=== PATIENT | female | born 1975 | race Caucasian/White ===

== ENCOUNTER 2019-11-30 00:35 | Day surgery (SDC) | payer OTHER, SELFPAY ==
[2019-11-15 16:02] VITALS: BMI 55.5
[2019-11-30] VITALS (12 sets, daily range): BP systolic 93–142; BP diastolic 57–90; PULSE 53–75; RESP 12–20; TEMP 36–36.2; O2SAT 92–100
[2019-11-30] MEDS: LACTATED RINGERS 1,000 ML 30 ML IV CONT ×2 (06:46→09:48)
--- NOTE | 2019-11-30 07:06 | WPDANESEPPF ---
Anes - Initial Pre Proc Eval Procedure: Operation Date: 11/30/19 07:30 Proposed Procedures p Diagnostic Laparoscopy - Kiko Peña MD Date/Time: 11/30/19 07:06 Surgeon: Kiko Peña MD Pre Op Diagnosis: Pelvic Pain Patient Data Age: 44 Gender: F Height: 4 ft 10 in Weight: 75.8 kg Last Vital Signs Temp 96.8 F L 11/30/19 06:50 Pulse 75 11/30/19 06:50 BP 142/90 H 11/30/19 06:50 Pulse Ox 98 11/30/19 06:50 Allergies Allergy/AdvReac Type Severity Reaction Status Date / Time No Known Allergies Allergy Verified 11/30/19 06:49 Home Medications Medication Instructions Recorded Confirmed Type cyclobenzaprine 10 mg PRN PRN 11/15/19 11/30/19 History Patient hx anesthesia problems: none Family hx anesthesia problems: none [facility] Past Medical History Medical History (Updated 08/03/19 @ 08:33 by Vadim Arguello DO) Psoriasis Surgical History Surgical History (Updated 08/03/19 @ 08:33 by Vadim Arguello DO) History of Anes - Eval Final PreProcedure Day of Procedure 11/30/19 07:06 Patient weight: obese Heart: regular rate and rhythm Lungs: clear to auscultation Airway: Mallampati scale class III Neurological: alert and oriented Last oral intake: >/= 8 hours ASA classification: II Emergent: no Anesthetic plan: proceed Anesthesia type and monitoring: general ETT and standard monitoring Informed Consent: The patient's anesthetic plan and its attendant risks and benefits were discussed with the patient/family/POA. Questions were solicited and answers provided to the satisfaction of the patient/family/POA.
--- NOTE | 2019-11-30 07:25 | WPDHPUPDATE1 ---
History and Physical Update Update Date/Time: 11/30/19 07:25 History and Physical has been reviewed, including an updated exam of the patient. There are NO changes in the patient's condition. Risks, benefits, and alternatives have been discussed and questions answered. Patient agrees to proceed with procedure.
--- NOTE | 2019-11-30 09:02 | SUR.OPER ---
APPROXIMATELY 300CC OF NS INSTILLED IN BLADDER 900 TO CHECK BLADDER PER DR. ALVARADO'S ORDER WITH DELCID CATH INSERTED BY EDWAR CHAMBERLAIN RN. BLADDER DRAINED AND NO FURTHER ORDERS RECEIVED
--- NOTE | 2019-11-30 09:36 | SUR.OPER ---
EBL:10CC
--- NOTE | 2019-11-30 10:08 | P.OP_ITS ---
Procedure Note - Detailed Date of procedure: 11/30/19 Pre-op diagnosis: Pelvic Pain Ovarian cyst Post-op diagnosis: same (Pelvic adhesions) Procedure performed: Laparoscopic adhesiolysis 985 minutes of laparoscopic adhesiolysis was performed), laparoscopic ovarian cystectomy, diagnostic laparoscopy Description of procedure: The patient was taken the operating room. She was prepped and draped in the dorsal lithotomy position after induction of general anesthesia. A 5 mm left upper quadrant incision was made in the abdominal skin with a scalpel. A 5 mm trocar was inserted the intra-abdominal cavity under direct visualization of the scope. A 5 mm left lower quadrant incision was made with the scalp on the abdominal skin and a 5 mm trocar was inserted the intra- abdominal cavity under direct visualization of the scope. A 5 mm infraumbilical incision was made with scalpel and a 5 mm trocar was inserted into the intra- abdominal cavity under direct visualization of the scope. Adhesiolysis was performed between the uterus and the anterior abdominal wall. Omentum was adhered to the anterior abdominal wall. Using sharp and blunt dissection the omentum and uterus was from the anterior abdominal wall. Bladder was identified. Dissected off the lower uterine segment. The bladder was filled with saline and was found to be intact. It helped identify the margins of the bladder. Help with the dissection of the anterior abdominal wall and the lower uterine segment. Left ovarian cystectomies performed sharp and blunt dissection using cautery. The fallopian tube cysts were also removed with the cautery. Received was placed on the uterus. The procedure was terminated. The pelvis was irrigated with copious amounts of normal saline. The pneumoperitoneum was reduced. The trocars were removed. The patient was taken recovery room stable condition. Sponge lap and needle counts were correct x2. Anesthesia: GETA Surgeon: Kiko Peña MD Estimated blood loss (mL): 90 Drains: No Packing: No Pathology: yes Complications: No immediate complications Condition: stable Disposition: PACU Findings: Dense adhesions between the uterus to the anterior abdominal wall, left ovarian cyst, left fallopian tube cyst, normal appearing right ovary, normal-appearing right tube.
[2019-11-30] MEDS: ONDANSETRON HCL ODT 4 MG TABLET PO (12:32)
== END 2019-11-30 12:43 | disposition home or self-care (01) ==
PROVIDERS: Visit Provider Obstetrics & Gynecology
PROC: (CPT 49320; principal; 2019-11-30 07:30)
DX: N73.6 Female pelvic peritoneal adhesions (postinfective) (principal); N83.02 Follicular cyst of left ovary; N83.8 Other noninflammatory disorders of ovary, fallopian tube and broad ligament; R10.2 Pelvic and perineal pain; L40.9 Psoriasis, unspecified; E66.9 Obesity, unspecified; Z68.34 Body mass index [BMI] 34.0-34.9, adult
CPT/HCPCS: 58662; 88305; A9270; J0131; J1100; J1170; J2250; J2370; J2405; J2704; J2710; J3010; J7030; J7120

== ENCOUNTER 2020-01-31 20:09 | Emergency (ER) | payer OTHER, SELFPAY ==
--- NOTE | ~2020-01-31 | XR_ITS ---
EXAMINATION: XR chest 1V portable EXAM DATE: 01/31/2020 21:34 INDICATION: Wheezing, cough. TECHNIQUE: Portable AP frontal chest x-ray was obtained. Comparison is made to prior examination from 12/18/2009. FINDINGS: The lungs are clear. There are no pleural effusions. The cardiomediastinal silhouette is within normal limits. There is no pneumothorax suspected. The bones and soft tissues are unremarkab le. IMPRESSION: Unremarkable chest x-ray exam. Reviewed, dictated and finalized at location A.
[2020-01-31 20:25] VITALS: BP 142/86; PULSE 73; RESP 15; TEMP 36.7; O2SAT 99
--- NOTE | 2020-01-31 20:48 | ED.SOB ---
HPI - SOB/Dyspnea General Chief Complaint: Shortness of Breath/Dyspnea Stated Complaint: WHEEZING Time Seen by Provider: 01/31/20 20:35 Source: patient Mode of arrival: ambulatory Limitations: no limitations History of Present Illness HPI Narrative: This patient is a 45 year old female former smoker who presents for evaluation of cough and wheezing. Patient states over the past couple of weeks she has been dealing with sinus symptoms. She has been taking claritin and benadryl, but over the past 3 days she has had progressive worsening cough and wheezing. She denies diagnosis of asthma but reports diagnosis of bronchitis in the past. She denies associated fever, chills, nausea, vomiting, sore throat, diarrhea, or loss of taste of smell. MD elicited complaint: cough Onset (ago): day(s) (3) Associated symptoms: cough and wheezing Related Data Home Medications Medication Instructions Recorded Confirmed diphenhydramine HCl [Benadryl 25 mg PO Q6H PRN 01/31/20 Allergy] nnjtvqziwx-AM-AU-acetaminophen ml PO 01/31/20 [Vicks NyQuil Severe Cold-Flu] loratadine-pseudoephedrine 1 tablet PO Q12H 01/31/20 [Claritin-D 12 Hour] Allergies Allergy/AdvReac Type Severity Reaction Status Date / Time No Known Allergies Allergy Verified 11/30/19 06:49 Review of Systems Review of Systems: All systems reviewed & are unremarkable except as noted in HPI and below Constitutional: Constitutional: Denies chills, Denies fever(s) and Denies weakness ENT: Reports nasal congestion, Reports post nasal drip and Denies sore throat Cardiovascular: Cardiovascular: Denies chest pain Respiratory: Respiratory: Reports cough, Reports dyspnea and Reports wheezing Gastrointestinal: Gastrointestinal: Denies abdominal pain, Denies diarrhea, Denies nausea and Denies vomiting Neurologic: Denies headache(s) PMFSH Past Medical History Medical History (Updated 02/01/20 @ 00:00 by Mary Kelly) Psoriasis Surgical History Surgical History (Updated 08/03/19 @ 08:33 by Vadim Arguello DO) History of Social History Social History (Updated 01/31/20 @ 20:49 by Jayla Abel MD) Smoking status: Former smoker Exam Narrative: Exam Narrative: GENERAL: Well-appearing, well-nourished, and in no acute distress. HEAD: Normocephalic, atraumatic EYES: PERRLA and EOMI, conjunctiva clear without discharge THROAT:Mucous membranes moist, NECK: Supple, without lymphadenopathy or mass RESPIRATORY: No respiratory distress, Airway patent, Respirations non-labored, Expiratory wheezing diffuse, able to speak in complete sentences HEART: Regular rate and rhythm. No murmur heard. Normal peripheral pulses. ABDOMEN: Soft, nontender, nondistended, normal active bowel sounds. No masses. No rebound or guarding, No organomegaly. EXTREMITIES: No edema, normal strength with full range of motion. SKIN: Warm, dry, normal color without rash NEURO: Alert and oriented x3. CN 2-12 grossly intact. No focal deficits. PSYCH: Normal mood and affect. Course Reevaluation(s) Reevaluation #1: Patient states she feels better. She continues to have some wheezing but she is in no acute distress. I discussed with patient plan to discharge with albuterol and steroids Date: 01/31/20 Time: 22:04 Vital Signs Vital signs: Vital Signs Temperature 98.0 F 01/31/20 20:25 Pulse Rate 73 01/31/20 20:25 Respiratory Rate 15 01/31/20 20:25 Blood Pressure 142/86 H 01/31/20 20:25 Pulse Oximetry 99 01/31/20 20:25 Temperature 98.0 F 01/31/20 20:25 Pulse Rate 75 01/31/20 22:20 Respiratory Rate 17 01/31/20 22:20 Blood Pressure 172/94 H 01/31/20 22:20 Pulse Oximetry 100 01/31/20 22:20 MDM - SOB/Dyspnea Imaging Data Radiologist's impression: ITS Impressions Chest X-Ray 01/31/20 21:36 IMPRESSION: Unremarkable chest x-ray exam. Discharge Plan Discharge Clinical Impression: Acute br
[2020-01-31] MEDS: ALBUTEROL SULFATE (*SP) AEROSOL 1 PUFF 2 PUFF INHALATION (21:00)
[2020-01-31] MEDS: predniSONE 20 MG TABLET 60 MG PO (21:04)
[2020-01-31 21:25] VITALS: BP 157/87; PULSE 72; RESP 12; O2SAT 99
[2020-01-31 22:20] VITALS: BP 172/94; PULSE 75; RESP 17; O2SAT 100
== END 2020-01-31 22:20 | disposition home or self-care (01) ==
PROVIDERS: Emergency Provider General Practice
DX: J20.9 Acute bronchitis, unspecified (principal); Z87.891 Personal history of nicotine dependence
CPT/HCPCS: 71045; 99283; A9270; J7512

== ENCOUNTER 2020-03-29 16:28 | Outpatient (CLI) | payer OTHER, SELFPAY | END 2020-03-29 16:29 | disposition home or self-care (01) | PROVIDERS: Visit Provider Obstetrics & Gynecology | DX: N93.9 Abnormal uterine and vaginal bleeding, unspecified (principal); Z01.812 Encounter for preprocedural laboratory examination | CPT/HCPCS: 36415; 86850; 86900; 86901 ==

== ENCOUNTER 2020-03-30 00:13 | Outpatient (CLI) | payer OTHER, SELFPAY ==
[2020-03-30 18:05] LABS: SARS-CoV-2 RNA PCR Negative
== END 2020-03-30 00:14 | disposition home or self-care (01) ==
LOC: ANHCOVIDDT 00:14
PROVIDERS: Visit Provider Obstetrics & Gynecology
DX: Z01.818 Encounter for other preprocedural examination (principal); Z11.59 Encounter for screening for other viral diseases
CPT/HCPCS: 87635; C9803; U0003

== ENCOUNTER 2020-04-02 10:03 | Inpatient (IN) | payer OTHER, SELFPAY ==
[2020-03-29 09:56] VITALS: BMI 57.2
[2020-04-02] VITALS (16 sets, daily range): BP systolic 89–130; BP diastolic 60–76; PULSE 58–88; RESP 10–18; TEMP 36.6–37.3; O2SAT 95–100
--- NOTE | 2020-04-02 06:59 | WPDANESEPPF ---
Anes - Initial Pre Proc Eval Procedure: Operation Date: 04/02/20 07:30 Proposed Procedures p Total Laparoscopic Assisted Hysterectomy, Bilateral Salpingo-Oophorectomy - Kiko Peña MD Date/Time: 04/02/20 06:59 Surgeon: Kiko Peña MD Pre Op Diagnosis: Abnormal Uterine Bleeding Patient Data Age: 45 Gender: F Height: 4 ft 10 in Weight: 124.28 kg Allergies Allergy/AdvReac Type Severity Reaction Status Date / Time No Known Allergies Allergy Verified 03/29/20 09:56 Home Medications Medication Instructions Recorded Confirmed Type albuterol sulfate 2 puff INHALATION QID PRN #8 gm 01/31/20 03/29/20 Rx diphenhydramine HCl [Benadryl 25 mg PO Q6H PRN 01/31/20 03/29/20 History Allergy] loratadine-pseudoephedrine 1 tablet PO Q12H PRN 01/31/20 03/29/20 History [Claritin-D 12 Hour] norethindrone-e.estradiol-iron 1 tablet PO DAILY 03/29/20 03/29/20 History [Microgestin FE 10/10 (28)] Patient hx anesthesia problems: post op nausea/vomiting Family hx anesthesia problems: none PMFSH Past Medical History Medical History (Updated 04/02/20 @ 06:58 by Moy Rodas MD) Bronchitis Psoriasis Surgical History Surgical History (Updated 08/03/19 @ 08:33 by Vadim Arguello DO) History of Social History Social History (Updated 01/31/20 @ 20:49 by Jayla Abel MD) Smoking packs per day: 0.5 Smoking cigarettes per day: 10.0 Years smoked: 5 Smoking pack-years: 2.50 Smoking status: Former smoker Additional smoking assessment comments: QUIT 2017 Alcohol intake: never Spiritual care concerns: No Anes - Eval Final PreProcedure Day of Procedure 04/02/20 06:59 Patient weight: overweight Heart: regular rate and rhythm Lungs: clear to auscultation Airway: Mallampati scale class II Neurological: alert and oriented Last oral intake: >/= 8 hours ASA classification: II Emergent: no Anesthetic plan: proceed Anesthesia type and monitoring: general ETT and standard monitoring Informed Consent: The patient's anesthetic plan and its attendant risks and benefits were discussed with the patient/family/POA. Questions were solicited and answers provided to the satisfaction of the patient/family/POA.
[2020-04-02] MEDS: SCOPOLAMINE 1.5 MG PATCH TRANSDERM (07:10)
[2020-04-02] MEDS: LACTATED RINGERS 1,000 ML 30 ML IV CONT ×2 (07:10→10:06)
[2020-04-02] MEDS: ONDANSETRON INJ 4 MG/2 ML VIAL IV PUSH (07:10)
[2020-04-02] MEDS: KETOROLAC 15 MG/ML VIAL (*BKC) IV PUSH (07:10)
--- NOTE | 2020-04-02 07:20 | WPDHPUPDATE1 ---
History and Physical Update Update Date/Time: 04/02/20 07:20 History and Physical has been reviewed, including an updated exam of the patient. There are NO changes in the patient's condition. Risks, benefits, and alternatives have been discussed and questions answered. Patient agrees to proceed with procedure.
[2020-04-02] MEDS: ACETAMINOPHEN 500 MG TABLET 1000 MG PO (07:33)
[2020-04-02] MEDS: ceFAZolin 2 GM/D5W 50 ML 2 GM/50 ML BAG IVPB (07:36)
--- NOTE | 2020-04-02 10:05 | P.OP_ITS ---
Procedure Note - Detailed Date of procedure: 04/02/20 Pre-op diagnosis: Abnormal Uterine Bleeding Post-op diagnosis: same Procedure performed: Total laparoscopic hysterectomy bilateral salpingo- oophorectomy Description of procedure: The patient was taken to the operating room. She was prepped and draped in the dorsal lithotomy position. A speculum was placed in the vagina. The cervix was grasped with a tenaculum. Stay sutures were placed at 3 and 9:00 a.m. of 0 Vicryl. The stay sutures were brought through the Cheri up. The RUDI manipulator was placed in the vagina with a fixed Cheri cup. The cup was then pushed up around the cervix. The sutures were tied to the handle of the RUDI manipulator. A 5 mm incision was made on the abdominal skin of the left upper quadrant using a scalpel. A 5 mm trocar was inserted into the intra-abdominal cavity under direct visualization the scope. Pneumoperitoneum was achieved. An 11 mm incision was made in the left lower quadrant of the abdomen with a scalpel. A 11 mm trocar was inserted into the intra-abdominal cavity under direct visualization the scope. A 5 mm periumbilical incision was made. A 5 mm scope was placed into the intra-abdominal cavity under direct visualization of the scope. The ureters were identified. The ureters were observed to be away from the infundibulopelvic ligaments. These infundibulopelvic ligaments were isolated, cauterized, and transected with LigaSure cautery. This was done in a bilateral fashion. The para ovarian tissue along the pelvic sidewall was cauterized and transected in a bilateral fashion using the ligature cautery. The round ligaments were cauterized and transected bilaterally with LigaSure cautery. The broad ligaments were cauterized and transected along the lateral aspects of the uterus down the level of the uterine arteries. A bladder flap was created using sharp and blunt dissection. The ureters were dissected out bilaterally down to the level of the uterine arteries. The could be visualized from the pelvic brim down the uterine arteries. Staying very close to the cervix the parametrium was cauterized transected in a stepwise fashion down to the level of the Cheri cup. The Bladder flap was moved distally over the Cheri cup using sharp and blunt dissection. The cup was visualized and a complete 360 degree papillary around the cervix. An incision was made with unipolar cautery down under the Cheri cup creating a colpotomy incision all the way around the cervix. The uterus tubes and ovaries were taken out through the vagina. A pneumo occluder was placed in the vagina. The vagina was closed with 0 V lock suture in a running fashion. The ureters were identified again and found to be intact elevated and the uterine arteries. The pelvis was irrigated with a copious amount of antibiotic irrigation. The pneumoperitoneum was reduced. The trocars were removed. The skin was closed subcuticular 4 Monocryl covered with Dermabond. The pneumo occluder was removed from the vagina. The vagina was irrigated with Betadine. The patient tolerated the procedure well. She was taken to the recovery room in stable condition. Sponge lap and needle counts were correct x2. Anesthesia: GETA Surgeon: Kiko Peña MD Estimated blood loss (mL): 150 Drains: No Packing: No Pathology: yes Complications: No immediate complications Condition: stable Disposition: PACU Findings: Grossly normal-appearing uterus tubes and ovaries.
--- NOTE | 2020-04-02 10:51 | SUR.PHASEI ---
1045; PT RESTING QUIETLY. RESP EVEN UNLABORED. DOZING IN INTERVALS. SAO2 DROPS BRIEFLY TO 87%. O2 2L NC APPLIED.
--- NOTE | 2020-04-02 11:10 | SUR.PHASEI ---
1 BAG OF BELONGINGS TAKEN TO FLOOR WITH PT
--- NOTE | 2020-04-02 11:22 | PC.NURSE ---
This patient, Elizabeth Reich, was received from PACU per bed to room 289. Patient/family oriented to unit policies and routines
[2020-04-02] MEDS: KETOROLAC 30 MG/ML VIAL (*BKC) IV PUSH (14:49)
[2020-04-02] MEDS: SIMETHICONE 80 MG TAB.CHEW (19:49)
[2020-04-02] MEDS: DOCUSATE SODIUM 100 MG CAPSULE (19:49)
[2020-04-02] MEDS: SIMETHICONE 80 MG TAB.CHEW PO (23:15)
[2020-04-02] MEDS: IBUPROFEN 600 MG TABLET PO (23:15)
[2020-04-03 05:00] VITALS: BP 117/61; PULSE 62; RESP 18; TEMP 36.7; O2SAT 98
[2020-04-03] MEDS: SIMETHICONE 80 MG TAB.CHEW PO ×2 (05:01→09:35)
[2020-04-03] MEDS: IBUPROFEN 600 MG TABLET PO (05:02)
--- NOTE | 2020-04-03 07:07 | WPDANLDPN2 ---
Anes-Prog Note L&D Date/Time: 04/03/20 07:07 Neuro status: Neuro function grossly intact. Vital Signs: Last Vital Signs Temp 36.7 C 04/03/20 05:00 Pulse 62 04/03/20 05:00 Resp 18 04/03/20 05:00 BP 117/61 04/03/20 05:00 Pulse Ox 98 04/03/20 05:00 I/O: Intake & Output 04/02/20 04/02/20 04/03/20 15:59 23:59 07:59 Intake Total 147 299 8967 Output Total 165 325 750 Balance 185 75 250 Patient feedback: Patient satisfied with anesthetic care.
--- NOTE | 2020-04-03 07:07 | WPDANESPN ---
Anes - Prog Note Post-Op Date/Time: 04/03/20 07:07 Cardiovascular status: normal Respiratory status: normal Airway patency: baseline Mental status: baseline Post-Op hydration status: normal Vital Signs: Last Vital Signs Temp 36.7 C 04/03/20 05:00 Pulse 62 04/03/20 05:00 Resp 18 04/03/20 05:00 BP 117/61 04/03/20 05:00 Pulse Ox 98 04/03/20 05:00 I/O: Intake & Output 04/02/20 04/02/20 04/03/20 15:59 23:59 07:59 Intake Total 689 344 7682 Output Total 165 325 750 Balance 185 75 250 Post-procedural complaints: none Patient Feedback: Patient satisfied with anesthetic care.
--- NOTE | 2020-04-03 07:47 | PM.GYNPNOP ---
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 Post-Op Subjective Date/time seen: 04/03/20 07:47 Subjective: patient reports feeling better, patient has no complaints and pain is well controlled Exam Const: General: healthy appearing, comfortable and no acute distress Resp: Auscultation: clear to auscultation bilaterally, no rales, no rhonchi and no wheezes Cardio: Rate: regular rate Heart sounds: no click, no murmurs and no rubs GI: Inspection: non-distended Auscultation: normal bowel sounds Extrem: General: normal to inspection, no pedal edema and no calf tenderness 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 GRAIN DRYER - PN: Obj Data Vital Signs Vital Signs: Vital Signs - 24 hr 04/02/20 10:06 04/02/20 10:20 04/02/20 10:35 Temperature 97.8 F Pulse Rate 76 60 64 Respiratory Rate 10 L 12 16 Blood Pressure 89/76 L 113/63 117/61 Pulse Oximetry 100 100 95 04/02/20 10:50 04/02/20 11:05 04/02/20 11:23 Temperature 97.8 F Pulse Rate 58 L 65 67 Respiratory Rate 14 12 16 Blood Pressure 96/63 L 102/62 109/62 Pulse Oximetry 98 100 100 04/02/20 11:30 04/02/20 11:45 04/02/20 12:00 Temperature Pulse Rate 70 67 70 Respiratory Rate 16 16 Blood Pressure 97/61 L 98/60 L 107/64 Pulse Oximetry 100 100 100 04/02/20 12:30 04/02/20 13:00 04/02/20 14:00 Temperature 98.6 F Pulse Rate 78 87 67 Respiratory Rate 16 16 16 Blood Pressure 111/65 124/68 114/71 Pulse Oximetry 100 100 100 04/02/20 16:45 04/02/20 19:30 04/02/20 23:15 Temperature 99.2 F 99.1 F 98.5 F Pulse Rate 88 84 74 Respiratory Rate 18 14 18 Blood Pressure 130/70 107/61 121/63 Pulse Oximetry 98 99 04/03/20 05:00 Temperature 98.1 F Pulse Rate 62 Respiratory Rate 18 Blood Pressure 117/61 Pulse Oximetry 98 Intake/Output Intake/Output: Intake & Output 03/31/20 04/01/20 04/02/20 04/03/20 23:59 23:59 23:59 23:59 Intake Total 750 1000 Output Total 490 750 Balance 260 250 Meds/Results Medications: Active Medications Generic Name Dose Route Start Last Admin Trade Name Freq PRN Reason Stop Dose Admin Hydrocodone Bitart/Acetaminophen 1 tab 04/02/20 11:11 04/03/20 05:01 Spruce 5-325 Mg PO 1 tab Q3H PRN Administration Pain Rated 5 or Less Hydrocodone Bitart/Acetaminophen 1 tab 04/02/20 11:11 Spruce 10-325 Mg PO Q3H PRN Pain Rated 6 or Greater Albuterol 2 puff 04/02/20 11:11 Proventil Hfa INHALATION QID PRN shortness of breath or wheezing Diphenhydramine HCl 25 mg 04/02/20 11:11 Benadryl Cap PO Q6H PRN Allergy Symptoms Docusate Sodium 100 mg 04/03/20 09:00 Colace Capsule PO Q12HR MADY Ibuprofen 600 mg 04/02/20 11:11 04/03/20 05:02 Motrin PO 600 mg Q6H PRN Administration Cramping Ketorolac Tromethamine 30 mg 04/02/20 11:11 04/02/20 14:49 Toradol Inj IV PUSH 04/07/20 11:12 30 mg Q6H PRN Administration Pain Rated 4-6 Loratadine/Pseudoephedrine Sulfate 1 tab 04/02/20 11:30 Claritin-D 24 Hour Tablet PO QAM PRN Allergic Symptoms Naloxone HCl 0.1 mg 04/02/20 11:11 Narcan IV PUSH Q2M PRN Respiratory rate less than 10 Ondansetron HCl 4 mg 04/02/20 10:19 Zofran Inj IV PUSH ONCE PRN Nausea Simethicone 80 mg 04/02/20 22:19 04/03/20 05:01 Mylicon PO 80 mg Q2H PRN Administration Gas Discomfort
[2020-04-03 08:25] VITALS: BP 106/57; PULSE 79; RESP 16; TEMP 36.5; O2SAT 100
[2020-04-03] MEDS: DOCUSATE SODIUM 100 MG CAPSULE PO (09:35)
--- NOTE | 2020-05-21 11:09 | P.DS_ITS ---
DS: Admitting Diagnosis Admitting Diagnosis Admitting Diagnosis: Abnormal Uterine Bleeding DS: Discharge Diagnosis Discharge Diagnosis (1) Abnormal uterine and vaginal bleeding, unspecified: Code(s): N93.9 - Abnormal uterine and vaginal bleeding, unspecified Status: Acute DS: Summary Hospital Course Reason for hospitalization: Abnormal uterine bleeding Hospital Course: this patient is a 45-year-old female presented to the hospital for total laparoscopic hysterectomy bilateral salpingo oophorectomy. This was performed for abnormal uterine bleeding. Her hospital course was unremarkable. She tolerated the surgery well. She was ambulating, tolerating p.o., and passing flatus at the appropriate time. She is afebrile and her pain was well controlled throughout her stay. She was discharged on postoperative day 1. Status at Discharge Functional status at discharge: independent ambulation Time Spent with Patient Time attestation: Total time spent providing and/or coordinating discharge services: DS: Data Data Completed and Pending Completed studies during hospitalization: Pending at discharge 04/02/20 09:21 Surgical [PTH] Routine Discharge Plan Discharge Discharging Clinician: Kiko Peña Patient Disposition: Home, Self-Care Activity: pelvic rest Diet: regular Discharge Instructions: Some Complications to Watch for: ? Excessive incisional or vaginal drainage (more than on pad an hour). Additional Instructions: ? Expect some vaginal spotting for 2-4 days. ? Nothing vaginally (i.e. douching, intercourse, tampons) until follow up visit. Remove the Scopolamine patch that was placed behind your ear in 72 hours or less. Wash your hands after touching. Patient Instructions: Laparoscopic Hysterectomy (DC) Stand Alone Forms: General Discharge Instructions Follow-up/Referrals: Kiko Peña MD [Physician] - Discharge Orders: Outpatient Surgery Discharge (Routine); Ordered 04/03/20 Ordered By: Kiko Peña Discharge Medications: New hydrocodone-acetaminophen 5-325 mg tablet 1 - 2 tablet PO Q4H PRN (Reason: pain) Qty: 25 RF: 0 estradiol 1 mg tablet 1 mg PO DAILY Qty: 30 RF: 12 Continued diphenhydramine HCl [Benadryl Allergy] 25 mg Tablet 25 mg PO Q6H PRN (Reason: Allergy Symptoms) RF: 0 Claritin-D 12 Hour 5-120 mg Tablet Extended Release 12 Hr 1 tablet PO Q12H PRN (Reason: Allergic Symptoms) RF: 0 albuterol sulfate 90 mcg/actuation HFA aerosol inhaler 2 puff INHALATION QID PRN (Reason: shortness of breath or wheezing) Qty: 8 RF: 0 norethindrone-e.estradiol-iron [Microgestin FE 10/10 (28)] 1 mg-20 mcg (21)/75 mg (7) tablet 1 tablet PO DAILY RF: 0 Date of admission: 04/02/20 10:03 Primary Care Provider: PHYSICIAN,[employer]IATE Admitting Provider: Kiko Peña Discharge Date/Time: 04/03/20 11:01 Attending physician on admission: Kiko Peña
== END 2020-04-03 11:01 | disposition home or self-care (01) | DRG 743 ==
LOC: ANHOB2 15:21 → ANHSURGERY 04-05 15:38 → ANHOB2 04-05 15:38
PROVIDERS: Admitting Provider Obstetrics & Gynecology; Visit Provider Obstetrics & Gynecology
PROC: 0UT9FZZ Resection of Uterus, Via Natural or Artificial Opening With Percutaneous Endoscopic Assistance (ICD-10-PCS; principal; 2020-04-02 07:30)
DX: N93.9 Abnormal uterine and vaginal bleeding, unspecified (principal); N92.0 Excessive and frequent menstruation with regular cycle; N94.6 Dysmenorrhea, unspecified; L40.9 Psoriasis, unspecified; Z87.891 Personal history of nicotine dependence
CPT/HCPCS: 87635; 88307; 99199; A9270; J0330; J0690; J1100; J1170; J1885; J2250; J2405; J2704; J2710; J3010; J7030; J7120; U0003

== ENCOUNTER 2021-01-22 00:50 | Emergency (ER) | payer OTHER, SELFPAY ==
[2021-01-22 00:52] VITALS: BP 178/85; PULSE 71; RESP 16; TEMP 36.3; O2SAT 98
--- NOTE | 2021-01-22 02:11 | ED.GENADULT ---
HPI - General Adult General Chief complaint: Skin/Abscess/Foreign Body Stated complaint: redness to legs Time Seen by Provider: 01/22/21 01:57 Source: patient and RN notes reviewed Mode of arrival: ambulatory Limitations: no limitations History of Present Illness HPI narrative: Patient is 46 years old white female presented to the ED because of stinging, burning, and itching of the skin of the anterior medial side of the thighs, mainly left 1 started 1 week ago. Patient denies any fever, chills, nausea, vomiting, respiratory symptoms, chest pain, headache, back pain or similar symptoms. Patient had history of Sjogren syndrome and psoriatic arthritis. Related Data Home Medications Medication Instructions Recorded Confirmed Claritin-D 12 Hour 1 tablet PO Q12H PRN 01/31/20 03/29/20 diphenhydramine HCl [Benadryl 25 mg PO Q6H PRN 01/31/20 03/29/20 Allergy] norethindrone-e.estradiol-iron 1 tablet PO DAILY 03/29/20 03/29/20 [Microgestin FE 10/10 (28)] diclofenac sodium PO 01/22/21 methotrexate sodium 01/22/21 Allergies Allergy/AdvReac Type Severity Reaction Status Date / Time No Known Allergies Allergy Verified 01/22/21 01:37 Review of Systems Review of Systems: Narrative: CONSTITUTIONAL: Denies fever, chills, or sweats. EYES: Denies visual changes, redness, or discharge. ENT: Denies rhinorrhea, congestion, sore throat, or otalgia. CARDIOVASCULAR: Denies chest pain, palpitations, or edema. RESPIRATORY: Denies cough or dyspnea. GASTROINTESTINAL: Denies abdominal pain, nausea, vomiting, or diarrhea. GENITOURINARY: Denies dysuria or hematuria. SKIN: Denies rash or itching. MUSCULOSKELETAL: Denies back pain, joint pain, or myalgia. NEUROLOGIC: Denies headache, numbness, or weakness. PSYCHIATRIC: Denies anxiety or depression. [facility] Past Medical History Medical History Bronchitis Psoriasis Surgical History Surgical History History of Social History Social History Smoking packs per day: 0.5 Smoking cigarettes per day: 10.0 Years smoked: 5 Smoking pack-years: 2.50 Smoking status: Former smoker Additional smoking assessment comments: QUIT 2017 Alcohol intake: never Spiritual care concerns: No Exam Narrative: Exam Narrative: General appearance: Well-developed, well-nourished Skin: Normal color. Anterior medial side of the thigh bilaterally is slightly red, slightly tender to touch, no warmth, no discharge, no sign of insect bite. Head: Normocephalic, nontraumatic Eyes: Clear conjunctiva ENT: Oropharynx normal, ears normal, nose normal Neck: Supple, nontender Chest and respiratory: Airway patent, no respiratory distress, no accessory muscle use Heart: Regular rate/rhythm Abdomen: Soft, nontender, no organomegaly, quiet bowel sounds Vascular: Normal peripheral pulses, normal capillary refill. Musculoskeletal: Normal range of motion, nontender back Neurologic: Alert and oriented ?3, [employer] SPECIALIST is normal as tested, no gross motor deficit Course Course Emergency Course: Stable Vital Signs Vital signs: Vital Signs Temperature 36.3 C L 01/22/21 00:52 Pulse Rate 71 01/22/21 00:52 Respiratory Rate 16 01/22/21 00:52 Blood Pressure 178/85 H 01/22/21 00:52 Pulse Oximetry 98 01/22/21 00:52 Temperature 36.3 C L 01/22/21 00:52 Pulse Rate 71 01/22/21 00:52 Respiratory Rate 16 01/22/21 00:52 Blood Pressure 178/85 H 01/22/21 00:52 Pulse Oximetry 98 01/22/21 00:52 Medical Decision Making MDM Narrative Medical decision making ada
[2021-01-22] MEDS: LORATADINE 10 MG TABLET PO (02:20)
[2021-01-22] MEDS: predniSONE 20 MG TABLET 60 MG PO (02:20)
[2021-01-22] MEDS: EPINEPHrine HCL INJ 1 MG/ML AMPUL 0.3 MG IM (02:22)
[2021-01-22 03:16] VITALS: BP 152/77; PULSE 69; RESP 16; O2SAT 100
== END 2021-01-22 03:18 | disposition home or self-care (01) ==
PROVIDERS: Emergency Provider Emergency Medicine; PCP Nurse Practitioner Family
DX: L30.9 Dermatitis, unspecified (principal); Z87.891 Personal history of nicotine dependence
CPT/HCPCS: 96372; 99283; A9270; J0171; J7512

== ENCOUNTER 2021-01-27 12:24 | Emergency (ER) | payer OTHER, SELFPAY ==
[2021-01-27 12:35] VITALS: BP 129/88; PULSE 78; RESP 16; TEMP 36.7; O2SAT 100
--- NOTE | 2021-01-27 12:35 | ED.SKABFB ---
HPI - Skin/Abscess/Foreign Bdy General Chief complaint: Skin/Abscess/Foreign Body Stated complaint: rash History of Present Illness HPI narrative: The patient, is a history of psoriatic arthritis, presents with skin eruption. Patient states she is on methotrexate, and went to the ER for symmetric, skin eruption of her medial thighs. Patient originally had a sun exposure at the end of December, then she was treated with prednisone antihistamines for 2 days.But the symptoms have persisted and asymmetrically worsened. No fever, streaking, discharge, but she has definite burning itch, redness at the affected left thigh Related Data Home Medications Medication Instructions Recorded Confirmed diphenhydramine HCl [Benadryl 25 mg PO Q6H PRN 01/31/20 01/27/21 Allergy] diclofenac sodium 75 mg PO DAILY 01/22/21 01/27/21 methotrexate sodium 15 mg PO WEEKLY 01/22/21 01/27/21 folic acid 1 mg PO BID 01/27/21 01/27/21 Allergies Allergy/AdvReac Type Severity Reaction Status Date / Time No Known Allergies Allergy Verified 01/27/21 12:29 Review of Systems Review of Systems: Narrative: General/Constitutional: No weight loss,fever Eyes: N0: Redness,discharge Ears/Nose/Throat: No: Epistaxis,ear discharge Respiratory: Denies: Hemoptysis Gastrointestinal: No Vomiting, Bleeding-rectal Skin: No Lumps, REPORTS eruption Neurologic: No Focal Weakness,Sz Hematologic: Denies: Petechiae/Purpura Psychiatric: No: Suicida ideationl All Other Systems: Reviewed and Negative [facility] Past Medical History Medical History Bronchitis Psoriasis Surgical History Surgical History History of Social History Social History Smoking packs per day: 0.5 Smoking cigarettes per day: 10.0 Years smoked: 5 Smoking pack-years: 2.50 Smoking status: Former smoker Additional smoking assessment comments: QUIT 2017 Alcohol intake: never Spiritual care concerns: No Exam Narrative: Exam Narrative: General Appearance: Well appearing, Conjunctiva clear Ears: External ear normal Skin: Warm, Dry; definite inflamed follicles of the left distal thigh with surrounding early redness Mouth/Throat: Normal appearing, Normal lips, Supple Respiratory: Airway patent, No respiratory distress Musculoskeletal: Full ROM Neurological: A&O x3, , Normal affect Course Vital Signs Vital signs: Vital Signs Temperature 98.1 F 01/27/21 12:35 Pulse Rate 78 01/27/21 12:35 Respiratory Rate 16 01/27/21 12:35 Blood Pressure 129/88 01/27/21 12:35 Pulse Oximetry 100 01/27/21 12:35 Temperature 98.1 F 01/27/21 12:35 Pulse Rate 78 01/27/21 12:35 Respiratory Rate 16 01/27/21 12:35 Blood Pressure 129/88 01/27/21 12:35 Pulse Oximetry 100 01/27/21 12:35 Discharge Plan Discharge Clinical Impression: Cellulitis Qualifiers: Site of cellulitis: extremity Site of cellulitis of extremity: lower extremity Laterality: left Qualified Code(s): L03.116 - Cellulitis of left lower limb Patient Disposition: Home, Self-Care Condition: Stable Instructions: Antibiotic Form, Cellulitis (ED) Additional Instructions: Take clindamycin with food, probiotic; stop if diarrhea occurs Keep a photo log of area Return if worsens per handout Prescriptions: New clindamycin HCl 300 mg capsule 300 mg PO TID Qty: 21 RF: 0 No Action folic acid 1 mg tablet 1 mg PO BID RF: 0 diphenhydramine HCl [Benadryl Allergy] 25 mg Tablet 25 mg PO Q6H PRN (Reason: Allergy Symptoms) RF: 0 albuterol sulfate 90 mcg/actuation HFA aerosol inhaler 2 puff INHALATION QID PRN (Reason: shortness of breath or wheezing) Qty: 8 RF: 0 estradiol 1 mg tablet 1 mg PO DAILY Qty: 30 RF: 12 methotrexate sodium 2.5 mg tablet 15 mg PO WEEKLY RF: 0 diclofenac sodium 75
== END 2021-01-27 13:10 | disposition home or self-care (01) ==
PROVIDERS: Emergency Provider Emergency Medicine; PCP Nurse Practitioner Family
DX: L03.116 Cellulitis of left lower limb (principal); Z87.891 Personal history of nicotine dependence
CPT/HCPCS: 99213; G0463

== ENCOUNTER 2022-07-15 16:44 | Outpatient (CLI) | payer BC, SELFPAY ==
--- NOTE | ~2022-07-15 | XR_ITS ---
XR hip BI wo pelvis DATE: 07/15/2022 17:10 INDICATION: Bilateral hip pain TECHNIQUE: AP and lateral views of each hip. COMPARISON: None FINDINGS: No fracture or dislocation, avascular necrosis or bone destruction of the hips. Hip joint spaces are well preserved. The pubic symphysis and sacroiliac joints are normal. IMPRESSION: Negative Reviewed, dictated and finalized at location A. IMPRESSION: Negative
[2022-07-15 17:39] LABS: Hematocrit 39.5 % (37.0-47.0); Hemoglobin 13.5 g/dL (12.0-15.0); Mean Corpuscular HGB Conc 34.2 g/dl (32-36); Mean Corpuscular Hemoglobin 30.8 pg (26-34); Mean Platelet Volume 10.9 fl (7.4-10.4); Platelet Count Result 266 k/mm3 (150-375); Red Blood Count 4.39 M/mm3 (4.2-5.4); Red Cell Distribution Width 13.2 % (11.5-14.5); White Blood Count 12.4 K/mm3 (4.5-10.0)
[2022-07-15 17:52] LABS: Alanine Aminotransferase 31 U/L (6-35); Albumin Level 4.2 g/dL (3.5-5.1); Alkaline Phosphatase 107 U/L (38-126); Anion Gap 9 mmol/L (8-16); Aspartate Amino Transferase 25 U/L (14-36); Bilirubin,Total 0.4 mg/dL (0.2-1.3); Blood Urea Nitrogen 17 mg/dL (7-17); Calcium 8.2 mg/dL (8.4-10.2); Carbon Dioxide 26 mmol/L (22-30); Chloride 105 mmol/L (98-107); Cholesterol 198 mg/dL (0-200); Estimated Glomerular Filt Rate 59; Glucose 161 mg/dL (65-110); HDL Direct 52 mg/dL; Potassium 4.1 mmol/L (3.4-5.0); Sodium 140 mmol/L (137-145); Triglycerides 86 mg/dL (<150)
[2022-07-15 18:03] LABS: LDL Cholesterol Direct 111 mg/dL
[2022-07-15 18:04] LABS: Add Urine Microscopic? YES; Appearance Urine Cloudy (Clear); Bilirubin Urine Negative (Negative); Blood Urine 1+ (Negative); Color Urine Yellow (Yellow); Glucose Urine UA 2+ mg/dL (Negative); Ketones Urine Negative (Negative); Leukocyte Esterase Ur Negative LEU/UL (NEGATIVE); Mucus Urine Rare /lpf; Nitrate Urine Negative (Negative); Protein Urine Negative (Negative); RBC Urine 21-50 /hpf (0-2); Specific Grav Ur 1.026 (1.001-1.035); Squamous Epithelial Cell Urine Many /hpf (Few); Urobilinogen Urine Negative mg/dL (<2.0)
[2022-07-15 18:22] LABS: Thyroid Stimulating Hormone 0.772 uIU/mL (0.465-4.680)
[2022-07-15 21:54] LABS: Hemoglobin A1C 5.5 % (<5.7)
== END 2022-07-15 16:45 | disposition home or self-care (01) ==
LOC: ANHIMG 16:51
PROVIDERS: PCP Nurse Practitioner Family; Visit Provider Nurse Practitioner Family
DX: I10 Essential (primary) hypertension (principal); E66.9 Obesity, unspecified; M25.551 Pain in right hip; M25.552 Pain in left hip
CPT/HCPCS: 36415; 73521; 80053; 80061; 81001; 83036; 84443; 85027

== ENCOUNTER 2022-07-16 18:50 | Emergency (ER) | payer BC, SELFPAY ==
--- NOTE | ~2022-07-16 | XR_ITS ---
XR hand LT min 3V DATE: 07/16/2022 19:30 INDICATION: Attacked by a rooster. TECHNIQUE: 3 views COMPARISON: None FINDINGS: No fracture or dislocation, periosteal reaction or bone destruction. No radiopaque foreign body. IMPRESSION: Negative Reviewed, dictated and finalized at location A. IMPRESSION: Negative
[2022-07-16 18:54] VITALS: BP 185/78; PULSE 91; RESP 20; TEMP 36.8; O2SAT 97
--- NOTE | 2022-07-16 20:22 | ED.ANIMALBIT ---
HPI - Animal Bite General Chief Complaint: Animal Bite <RAUL Gonzalez Last Filed: 07/16/22 20:34> Stated Complaint: laceration to left hand <RAUL Gonzalez Last Filed: 07/16/22 20:34> Time Seen by Provider: 07/16/22 19:49 <RAUL Gonzalez Last Filed: 07/16/22 20:34> Source: patient <RAUL Gonzalez Last Filed: 07/16/22 20:34> Mode of arrival: ambulatory <RAUL Gonzalez Last Filed: 07/16/22 20:34> Limitations: no limitations <RAUL Gonzalez Last Filed: 07/16/22 20:34> History of Present Illness HPI narrative: This is a 47-year-old female that presents emergency department after an injury today for a laceration to her hand. Reports she was attacked by her rooster. Reports a possible foreign body in the area. Denies decreased range of motion or numbness. <RAUL Gonzalez Last Filed: 07/16/22 20:34> Related Data Home Medications: Home Medications Medication Instructions Recorded Confirmed diphenhydramine HCl 25 mg tablet 25 mg PO Q6H PRN Allergy Symptoms 01/31/20 01/27/21 (Benadryl Allergy) diclofenac sodium 75 mg 75 mg PO DAILY 01/22/21 01/27/21 tablet,delayed release methotrexate sodium 2.5 mg tablet 15 mg PO WEEKLY 01/22/21 01/27/21 folic acid 1 mg tablet 1 mg PO BID 01/27/21 01/27/21 <RAUL Gonzalez Last Filed: 07/16/22 20:34> Allergies/Adverse Reactions: Allergies Allergy/AdvReac Type Severity Reaction Status Date / Time No Known Allergies Allergy Verified 07/16/22 19:51 <RAUL Gonzalez Last Filed: 07/16/22 20:34> Review of Systems Review of Systems: CONSTITUTIONAL: Denies fever SKIN: Reports laceration <RAUL Gonzalez Last Filed: 07/16/22 20:34> All systems reviewed & are unremarkable except as noted in HPI and below <Brianna Ly PA-C - Last Filed: 07/16/22 20:34> PMFSH Past Medical History Medical History: Medical History Bronchitis Psoriasis <Brianna Ly PA-C - Last Filed: 07/16/22 20:34> Surgical History Surgical History: Surgical History History of <Brianna Ly PA-C - Last Filed: 07/16/22 20:34> Social History Social History: Social History Smoking packs per day: 0.5 Smoking cigarettes per day: 10.0 Years smoked: 5 Smoking pack-years: 2.50 Smoking status: Former smoker Additional smoking assessment comments: QUIT 2017 Alcohol intake: never Spiritual care concerns: No <Brianna Ly PA-C - Last Filed: 07/16/22 20:34> Exam Narrative: GENERAL: Well-appearing, well-nourished, and in no acute distress. HEAD: Normocephalic, atraumatic. EYES: EOMI. EXTREMITIES: Normal range of motion. Mild bruising noted to the left hand dorsal surface. There is a puncture wound with a small foreign body present. Normal radial pulse. Normal sensation SKIN: Warm, dry, no rash. NEURO: No focal deficits. Alert and oriented x3. PSYCH: Normal mood and affect <Brianna Ly PA-C - Last Filed: 07/16/22 20:34> Course LICENSED PESTICIDE APPLICATOR/PA Physician Supervision For this patient encounter, I reviewed the LICENSED PESTICIDE APPLICATOR or PA documentation, treatment plan, and medical decision making <Jono Neil MD - Last Filed: 07/16/22 21:43> Vital Signs Vital signs: Vital Signs Temperature 98.2 F 07/16/22 18:54 Pulse Rate 91 07/16/22 18:54 Respiratory Rate 20 07/16/22 18:54 Blood Pressure 185/78 H 07/16/22 18:54 Pulse Oximetry 97 07/16/22 18:54 Temperature 98.2 F 07/16/22 18:54 Pulse Rate 91 07/16/22 18:54 Respiratory Rate 20 07/16/22 18:54 Blood Pressure 185/78 H 07/16/22 18:54 Pulse Oximetry 97 07/16/22 18:54 <Brianna Ly PA-C - Last Filed: 07/16/22 20:34> Vital Signs Temperature 98.2 F 07/16/22 18:54 Pu
[2022-07-16] MEDS: TETANUS,DIPHTHERIA,AC PERTUSSIS ADULT (0.5 ML) BOOSTRIX IM (20:40)
== END 2022-07-16 21:16 | disposition home or self-care (01) ==
LOC: ANHED 20:59
PROVIDERS: Emergency Provider Emergency Medicine; PCP Nurse Practitioner Family
DX: S61.422A Laceration with foreign body of left hand, initial encounter (principal); W61.32XA Struck by chicken, initial encounter; Z87.891 Personal history of nicotine dependence; Z23 Encounter for immunization
CPT/HCPCS: 73130; 90471; 90715; 99283

== ENCOUNTER 2022-08-13 10:46 | Outpatient (CLI) | payer BC, SELFPAY ==
--- NOTE | ~2022-08-13 | MM_ITS ---
EXAMINATION: MM screening elmer BI w ady HISTORY: Screening mammogram TECHNIQUE: Craniocaudal and mediolateral oblique 3-D tomosynthesis images were obtained and synthetic 2-D images were generated. CAD analysis was submitted and interpreted. COMPARISON: 07/16/2013 bilateral screening mammogram BREAST PARENCHYMAL COMPOSITION: The breasts are almost entirely fatty. FINDINGS: There is no evidence of suspicious mass, calcification, or architectural distortion to sugg est malignancy in either breast. There has been no suspicious interval change. IMPRESSION: 1. No mammographic evidence of malignancy. 2. Recommend routine screening mammography in one year. BI-RADS Category 1: Negative Reviewed, dictated and finalized at location A. CHMENT SPECIALIST
== END 2022-08-13 10:47 | disposition home or self-care (01) ==
PROVIDERS: PCP Nurse Practitioner Family; Visit Provider Nurse Practitioner Family
DX: Z12.31 Encounter for screening mammogram for malignant neoplasm of breast (principal)
CPT/HCPCS: 77063; 77067

== ENCOUNTER 2022-11-13 10:25 | Outpatient (CLI) | payer BC, SELFPAY ==
--- NOTE | ~2022-11-13 | CT_ITS ---
Non-contrast CT scan of the Abdomen and Pelvis Clinical indication: Abdominal pain, hematuria Technique: 5 mm axial scans were obtained through the abdomen and pelvis without intravenous or oral contrast. Dose reduction technique was used on this scan by utilizing automated exposure control and iterative reconstruction technique. The dose-length product (DLP) was 365.70 mGy-cm. Findings: Images through the lung bases reveal no abnormalities. There is no evidence of renal or ureteral calculi. The kidneys and the ureters are nondilated. The liver, spleen, pancreas, gallbladder, and adrenals appear normal. There is no aortic aneurysm. There is no evidence of bowel obstruction. Normal appendix. Images through the pelvis were performed. There is no evidence of ascites or lymphadenopathy. Urinary bladder unremarkable. No pelvic mass seen. Patient is post hysterectomy. Impression: Unremarkable exam. Reviewed, dictated and finalized at [facility]. RVISOR PLEATING Impression: Unremarkable exam.
[2022-11-13 11:32] LABS: Basophils Percent Auto 0.4 % (0.2-1.2); Eosinophils Absolute Auto 0.1 K/mm3 (0-0.3); Eosinophils Percent Auto 1.4 % (0-4.4); Hematocrit 39.2 % (37.0-47.0); Hemoglobin 13.7 g/dL (12.0-15.0); Immature Granulocyte Absolute 0.01 K/mm3 (0.00-0.031); Immature Granulocyte Percent A 0.1 % (0-0.5); Lymphocytes Absolute Auto 3.63 K/mm3 (0.9-3.2); Lymphocytes Percent Auto 43.4 % (18.3-44.2); Mean Corpuscular HGB Conc 34.9 g/dl (32-36); Mean Corpuscular Hemoglobin 31.4 pg (26-34); Mean Corpuscular Volume 89.9 fl (80-100); Mean Platelet Volume 10.6 fl (7.4-10.4); Monocytes Absolute Auto 0.6 K/mm3 (0.1-0.6); Monocytes Percent Auto 7.4 % (2.6-8.5); Neutrophils Percent Auto 47.3 % (45.5-73.1); Platelet Count Result 268 k/mm3 (150-375); Red Blood Count 4.36 M/mm3 (4.2-5.4); Red Cell Distribution Width 13.3 % (11.5-14.5); White Blood Count 8.4 K/mm3 (4.5-10.0)
[2022-11-13 11:45] LABS: Alanine Aminotransferase 36 U/L (6-35); Albumin Level 4.4 g/dL (3.5-5.1); Alkaline Phosphatase 90 U/L (38-126); Amylase 66 U/L (30-110); Anion Gap 4 mmol/L (8-16); Aspartate Amino Transferase 29 U/L (14-36); Bilirubin,Total 0.7 mg/dL (0.2-1.3); Blood Urea Nitrogen 16 mg/dL (7-17); Calcium 8.5 mg/dL (8.4-10.2); Carbon Dioxide 29 mmol/L (22-30); Chloride 103 mmol/L (98-107); Estimated Glomerular Filt Rate > 60; Glucose 93 mg/dL (65-110); Lipase 53 U/L (23-300); Potassium 4.3 mmol/L (3.4-5.0); Sodium 136 mmol/L (137-145)
== END 2022-11-13 10:26 | disposition home or self-care (01) ==
PROVIDERS: PCP Nurse Practitioner Family; Visit Provider Family Medicine
DX: R10.9 Unspecified abdominal pain (principal); R31.9 Hematuria, unspecified
CPT/HCPCS: 36415; 74176; 80053; 82150; 83690; 85025

== ENCOUNTER 2023-06-02 11:14 | Outpatient (CLI) | payer BC, SELFPAY ==
--- NOTE | 2023-06-29 11:17 | WPDSLEEPSTUD ---
Sleep Study Date of Study: 06/02/23 Ordering Provider: Jordy Abdullahi Interpreting Physician: Eve Sarabia MD Sleep Study Type: CPAP Titration Height: 1.47 m Weight: 82.554 kg Body Mass Index: 38.0 Neck Circumference (inches): 16 Randolph: 22 Reason for Sleep Study Hypersomnolence, documenterd obstructive sleep apnea * 04/30/2023, home sleep test at [facility], severe obstructive sleep apnea, AHI 60, desaturation to 67% Sleep History Elizabeth Reich is a 48-year-old female with medical comorbidities including Sjogren syndrome, psoriatic arthritishypertension, rhinitis and elevated body mass index 38. There is a family history of sleep apnea, both parents use CPAP. She has never been tested until now. She feels exhausted after being awake a few hours. She always has difficulty with excessive daytime sleepiness at work. 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 She sleepy during conversations, driving and even eating. She has no energy. She occasionally awakens from sleep feeling short of breath. She rarely awakens at night with heartburn, belching or coughing. She always snores and frequently has loud enough that others complain. She frequently has difficulty sleeping with a cold. She occasionally wakes up gasping for breath at night. She frequently has breathing problems at night observed by others. She frequently sweats excessively night. She rarely notices her heart pounding or beating irregularly at night. She frequently falls asleep during the day, involuntarily as well as frequently falls asleep while driving. She she never has loss of muscle tone with strong emotion. 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 She never feels paralyzed on waking or falling asleep. She occasionally has vivid dreamlike scenes on waking or falling asleep. She does not feel afraid to go to sleep. She does not have nightmares. She does not have dream recall. She rarely has racing thoughts. She rarely feels sad or depressed. She occasionally has anxiety. She occasionally has muscular tension. She frequently notices parts of her body jerking. She never kicks at night. She always has crawling and aching feelings in her legs and always has leg pain at night. She does not have morning jaw pain. She does not grind her teeth during sleep. She occasionally is bothered by pain during the day. She frequently is awakened by pain at night. She always wakes up feeling stiff in the morning, always wakes up with sore or achy muscles. She frequently wakes up with pain in the neck and spine. She has memory problems, fatigue, and insomnia. Normal bedtime is 10:00 p.m. falling asleep within a 1/2 hour. She typically wakes between 3 and 4 times during the night to go to the bathroom or get a drink. She is able to return to sleep within 1/2 hour. Her normal wake time is 6:00 a.m.. On weekends bedtime is still 10:00 p.m., she sleeps later, wakes between 7:00 a.m. and 8:00 a.m.. She estimates getting 5 hours of sleep at night. She takes naps in the afternoon or evening. A short nap lasting 10 or 15 minutes can be refreshing. She is usually drowsy for 2 hours after waking. She feels better in the morning compared to other times a day. Habits: Tobacco: Quit 4 months ago. Caffeine : 20-32 oz per day. Alcohol: None. Recreational substances: None. [facility] Past Medical History Medical History (Updated 06/29/23 @ 12:19 by Eve Sarabia MD) Bronchitis Hypertension Obstructive sleep apnea Psoriasis Rhinitis Surgical History Surgical History History of Social History Social History Smoking packs per day: 0.5 Smoking cigarettes per day: 10.0 Years smoked: 5 Smoking pack-years: 2.50 Smoking status: Former smoker Additional smoking assess
[2023-06-29 12:23] VITALS: BMI 38.0
== END 2023-06-03 07:01 | disposition home or self-care (01) ==
LOC: ANHCSM 11:14
PROVIDERS: PCP Nurse Practitioner Family
DX: G47.33 Obstructive sleep apnea (adult) (pediatric) (principal); G25.81 Restless legs syndrome
CPT/HCPCS: 95811

== ENCOUNTER 2023-11-10 13:34 | Outpatient (CLI) | payer BC, SELFPAY ==
--- NOTE | ~2023-11-10 | US_ITS ---
EXAMINATION: US soft tissue head and neck DATE: 11/10/2023 13:59 INDICATION: Massive neck. TECHNIQUE: Multiple grayscale and Doppler ultrasound images of the head and neck were obtained. COMPARISON: None FINDINGS: In the right neck, there is a 2.6 x 0.9 x 2.3 cm subcutaneous mass that is slightly hyperec hoic to normal subcutaneous fat. IMPRESSION: 1. 2.6 cm subcutaneous mass in right neck, likely a lipoma. Reviewed, dictated and finalized at location E. UROLOGIST
== END 2023-11-10 13:35 | disposition home or self-care (01) ==
LOC: ANHIMG 13:36
PROVIDERS: PCP Nurse Practitioner Family; Visit Provider Nurse Practitioner Family
DX: R22.1 Localized swelling, mass and lump, neck (principal)
CPT/HCPCS: 76536

== ENCOUNTER 2023-11-24 06:37 | Outpatient (CLI) | payer BC, SELFPAY ==
--- NOTE | ~2023-11-24 | MR_ITS ---
EXAMINATION: MR shoulder RT wo/w con DATE: 11/24/2023 08:00 INDICATION: Right shoulder pain and decreased range of motion TECHNIQUE: Magnetic resonance imaging (MRI) of the right shoulder was performed without and with 17 m L Multihance intravenous contrast. Sequences included axial PD-weighted FS FSE, axial T1-weighted FS FSE, coronal oblique PD-weighted FS FSE, coronal oblique T2-weighted FS FSE, sagittal PD-weighted FS FSE, sagittal T1-weighted SE and postcontrast axial, sagittal and coronal T1-weighted FS FSE. COMPARISON: None. FINDINGS: Coracoacromial arch: The acromion undersurface is minimally curved in morphology (type I-II). The coracoacromial ligament is normal. Moderate to severe right acromioclavicular osteoarthritis. Rotator cuff: Moderate supraspinatus and infraspinatus tendinopathy. Tiny intrasubstance split tear at the distal i nfraspinatus tendon. Mild subscapularis tendinopathy with additional tiny split tear at the lesser tu berosity insertion. The teres minor tendon is normal. Normal rotator cuff muscle bulk and signal. Biceps tendon, glenoid labrum and glenohumeral cartilage: Long head of the biceps tendon is normal. Glenoid labrum is normal. Glenohumeral cartilage is normal. Fluid: Physiologic amount of fluid in the glenohumeral joint and biceps tendon sheath. No loose osteochondr al bodies. Small amount of fluid in the subacromial/subdeltoid bursa consistent with mild bursitis. Bones/other: Bone alignment is normal. No fracture or pathologic marrow replacing process. Mild cystic change at t he lateral head of the clavicle. No pathologically enlarged right axillary lymphadenopathy. No abnorm ally enhancing lesions identified. IMPRESSION: 1. Mild subscapularis and moderate supraspinatus and infraspinatus tendinopathy with tiny intrasubsta nce split tears at the distal most infraspinatus and subscapularis tendons. 2. Moderate to severe acromioclavicular osteoarthritis. 3. Mild subacromial/subdeltoid bursitis. Reviewed, dictated and finalized at location A. EDMAN/LABORER IMPRESSION: 1. Mild subscapularis and moderate supraspinatus and infraspinatus tendinopathy with tiny intrasubstance split tears at the distal most infraspinatus and subs capularis tendons. 2. Moderate to severe acromioclavicular osteoarthritis. 3. Mild subacromial/subdeltoid bursitis.
== END 2023-11-24 06:38 | disposition home or self-care (01) ==
PROVIDERS: PCP Nurse Practitioner Family; Visit Provider Nurse Practitioner Family
DX: M75.51 Bursitis of right shoulder (principal); M19.011 Primary osteoarthritis, right shoulder; M75.21 Bicipital tendinitis, right shoulder
CPT/HCPCS: 73223; A9577

== ENCOUNTER 2023-11-26 13:18 | Outpatient (CLI) | payer BC, SELFPAY ==
--- NOTE | ~2023-11-26 | XR_ITS ---
EXAMINATION: XR shoulder RT min 2V DATE: 11/26/2023 13:33 INDICATION: Right shoulder pain TECHNIQUE: AP internally and externally rotated, AP oblique externally rotated and transscapular Y vi ews of the right shoulder were obtained. COMPARISON: MRI dated 11/24/2023 FINDINGS: Normal alignment. No fracture. Glenohumeral joint space appears normal with tiny marginal osteophyte along the inferior humeral head. Moderate acromioclavicular osteoarthritis. Soft tissues are unremar kable. Visualized portion of the right lung are clear. Lower cervical uncovertebral osteoarthritis, s evere bilaterally at C5-C6 with some associated disc height loss and moderate on the right and mild o n the left at C4-C5. IMPRESSION: Mild right glenohumeral and moderate acromioclavicular osteoarthritis. Reviewed, dictated and finalized at location A. RDS MANAGER
== END 2023-11-26 13:19 | disposition home or self-care (01) ==
LOC: ANHIMG 13:20
PROVIDERS: PCP Nurse Practitioner Family; Visit Provider Orthopaedic Surgery
DX: M19.011 Primary osteoarthritis, right shoulder (principal)
CPT/HCPCS: 73030

== ENCOUNTER 2023-11-27 12:18 | Outpatient (CLI) | payer BC, SELFPAY ==
--- NOTE | 2023-11-27 12:42 | ECG_ITS ---
Measurements Intervals Froid Rate: 55 P: 35 ME: 136 QRS: 37 QRSD: 97 T: 25 QT: 411 QTc: 396 Interpretive Statements SINUS BRADYCARDIA MINIMAL Q WAVES- INFERIOR LEADS BORDERLINE ECG NO PREVIOUS ECG AVAILABLE FOR COMPARISON Electronically Signed On 11-27-2023 12:50:53 ASSISTANT PROFESSOR OF FORESTRY by Amadou Daly D.O.
== END 2023-11-27 12:19 | disposition home or self-care (01) ==
LOC: ANHSURGERY 12:22
PROVIDERS: PCP Nurse Practitioner Family; Visit Provider Surgery
DX: Z01.818 Encounter for other preprocedural examination (principal); I10 Essential (primary) hypertension; R93.1 Abnormal findings on diagnostic imaging of heart and coronary circulation
CPT/HCPCS: 93005

== ENCOUNTER 2023-12-03 00:17 | Day surgery (SDC) | payer BC, SELFPAY ==
[2023-11-26 14:19] VITALS: BMI 40.5
--- NOTE | 2023-11-26 14:38 | PC.NURSE ---
Addendum entered by Ivet Fountain RN 11/26/23 15:08: CORRECTION: MAY TAKE PROPANOLOL AND SUMATRIPTAN FOR MIGRAINES ON DOS; DO NOT TAKE LISINOPRIL THIS DOS Original Note: Report to the Outpatient Waiting Room, entrance under the green pavilion located off [facility], at time _07:00AM__ on date _12/03/23 . Planned Procedure Time: __09:00AM . Time changes happen often and if your time is changed the preop area will call you the afternoon before. - You and your visitor will be asked to self-screen and do not enter if you have any COVID symptoms. - A mask is optional within the hospital at this time. Patients may have clear liquids (water, carbonated beverages, clear teas, apple juice) until 3 hours prior to surgery with a maximum of 20 ounces. - No food from midnight until time of surgery Take the following medications with a SIP of water the morning of surgery: ___NONE DO NOT STOP ANY OF YOUR OTHER PRESCRIPTION MEDICATIONS PRIOR TO SURGERY ?EXCEPT THE FOLLOWING Medications to discontinue per physician DICLOFENAC- Date to take last dose__12/01/23 PER MD Please no make-up, nail swedish, hairspray, perfume, deodorant, or body powder the day of surgery. No jewelry (including any body piercings) or valuables the day of surgery, leave them at home. Please take a shower or bath the night before, or the morning of, surgery with an antibacterial soap. Wear comfortable, loose fitting clothing. - Jewelry must be removed prior to entering the operating room. Rings and piercings that are not removed may be cut off. - The hospital will not accept responsibility for valuables. - Please leave all valuables, including medications, at home the day of surgery. If you are going home after surgery, a licensed recycling collections driver must drive you home. - NO public transportation without another adult if you receive anesthesia. - We recommend that an adult stay with you for 24 hours following discharge. - We also recommend that you do not drive, make important decision, drink alcoholic beverages, or take any drugs that were not prescribed by your health care provider for at least 24 hours after your discharge time. Follow any additional instructions given to you from your surgeon. If you or anyone in your household have experienced Covid symptoms in the past week, please notify your surgeon or the nurse liaison at the phone number below for possible testing. Telephone instructions given to _JEN and asked if any additional questions and then verbalized understanding. Patient advised to call surgeon office or pre surgery nurse liaison [phone] if any additional questions.
[2023-12-03] VITALS (8 sets, daily range): BP systolic 90–153; BP diastolic 46–101; PULSE 64–79; RESP 12–16; TEMP 36.8; O2SAT 97–99
--- NOTE | 2023-12-03 07:21 | WPDHPUPDATE1 ---
History and Physical Update Update Date/Time: 12/03/23 07:21 History and Physical has been reviewed, including an updated exam of the patient. There are NO changes in the patient's condition. Risks, benefits, and alternatives have been discussed and questions answered. Patient agrees to proceed with procedure.
[2023-12-03] MEDS: LACTATED RINGERS 1,000 ML 30 ML IV CONT (07:49)
--- NOTE | 2023-12-03 08:54 | WPDANESEPPF ---
Anes - Initial Pre Proc Eval Procedure: Operation Date: 12/03/23 09:00 Proposed Procedures p Excisional Biopsy of Right Supraclavicular Mass - Misty Garcia MD Date/Time: 12/03/23 08:54 Surgeon: Misty Garcia MD Pre Op Diagnosis: Rt Supraclavicular Mass Patient Data Age: 48 Gender: F Height: 1.45 m Weight: 84.2 kg Last Vital Signs Temp 98.3 F 12/03/23 07:42 Pulse 74 12/03/23 07:42 Resp 16 12/03/23 07:42 BP 153/78 H 12/03/23 07:57 Pulse Ox 98 12/03/23 07:42 O2 Del Method Room Air 12/03/23 07:42 Allergies Allergy/AdvReac Type Severity Reaction Status Date / Time No Known Allergies Allergy Verified 12/03/23 07:21 Home Medications Medication Instructions Recorded Confirmed Type albuterol sulfate 90 mcg/actuation 2 puff inhalation QID PRN 01/31/20 11/26/23 Rx aerosol inhaler shortness of breath or wheezing #8 grams diphenhydramine HCl 25 mg tablet 25 mg PO Q6H PRN Allergy Symptoms 01/31/20 11/26/23 History (Benadryl Allergy) cetirizine 10 mg capsule (Zyrtec) 10 mg PO DAILY PRN allergy 01/22/21 11/26/23 Rx symptoms #10 caps diclofenac sodium 75 mg 75 mg PO DAILY 01/22/21 11/26/23 History tablet,delayed release etanercept 50 mg/mL (1 mL) 50 mg subcut WEEKLY 11/26/23 11/26/23 History subcutaneous pen injector (Enbrel SureClick) lisinopril 20 mg tablet 20 mg PO DAILY 11/26/23 11/26/23 History propranolol 60 mg capsule,24 60 mg PO DAILY MIGRAINES 11/26/23 11/26/23 History hr,extended release sumatriptan succinate 50 mg tablet 50 mg PO ONCE PRN MIGRAINES 11/26/23 11/26/23 History Patient hx anesthesia problems: none Family hx anesthesia problems: none Results Review: All pre-operative results and documents have been reviewed as part of the pre-operative evaluation. [facility] Past Medical History Medical History Bronchitis Hypertension Obstructive sleep apnea Psoriasis Rhinitis Surgical History Surgical History History of Family History Family History (Updated 11/24/23 @ 13:44 by Katie Gomez MA) Other Cancer Cerebrovascular accident Diabetes mellitus Hypertension Social History Social History Smoking packs per day: 0.5 Smoking cigarettes per day: 10.0 Years smoked: 8 Smoking pack-years: 4.00 Smoking status: Former smoker Tobacco type: cigarettes Smoking end date: 09/21/17 Additional smoking assessment comments: QUIT 2017 Alcohol intake: never Substance use: never Living arrangements: with family Spiritual care concerns: No Anes - Eval Final PreProcedure Day of Procedure 12/03/23 08:54 Patient weight: morbidly obese Heart: regular rate and rhythm Lungs: clear to auscultation Airway: Mallampati scale class III Neurological: alert and oriented Last oral intake: >/= 8 hours ASA classification: III Emergent: no Anesthetic plan: proceed Anesthesia type and monitoring: general LMA and standard monitoring Results Review: All pre-operative results and documents have been reviewed as part of the pre-operative evaluation. Informed Consent: The patient's anesthetic plan and its attendant risks and benefits were discussed with the patient/family/POA. Questions were solicited and answers provided to the satisfaction of the patient/family/POA.
[2023-12-03] MEDS: ceFAZolin 2 GM/D5W 50 ML 2 GM/50 ML BAG IVPB (09:29)
[2023-12-03] MEDS: BUPIVACAINE/EPINEPHRINE 0.5% 30 ML VIAL 20 ML INFILTRATE (09:37)
--- NOTE | 2023-12-03 09:47 | W.PM.PROC2 ---
Procedure Note - Detailed Date of Procedure 12/03/23 Pre-op Diagnosis Rt Supraclavicular Mass Post-op Diagnosis Same Procedure Performed Excisional biopsy right supraclavicular mass measuring 3 x 2 cm Surgeon Misty Garcia MD Anesthesia General and Local Indications 58-year-old female presenting to the office with a right supraclavicular mass over the last month. The patient reports slow growth in size and mild tenderness with pressure. Findings 3 x 2 cm right supraclavicular subcutaneous mass, most consistent with lipoma Description of Procedure The patient was taken to the operating room and placed in the supine position. After adequate induction of general anesthesia, the patient was prepped and draped in the normal sterile fashion. A time-out was then done to verify the patient's identity, as well as the procedure being performed. Began by localizing the and this mass in the right supraclavicular region. I then used a 15 blade scalpel to make an incision mass. This was taken down through the dermis into the subcutaneous tissue. This mass was encountered in the subcutaneous tissue and was noted to be well circumscribed, soft. I was able to bluntly dissect around the mass itself and subsequently excise the mass in full. The mass was noted to measure 3 x 2 cm and will be sent to pathology for further review. At this point, I gained hemostasis with the Bovie cautery. The cavity was further locally anesthetized. I then closed the subcutaneous tissue with 3-0 Vicryl suture. The skin was closed with 4-0 Monocryl subcuticular suture. Dermabond was placed on the wound. The patient tolerated the procedure well and was extubated postoperatively. She will be transferred to the recovery room in stable condition. Estimated Blood Loss 5 Drains No Packing No Pathology Yes Complications No immediate complications Condition Stable Disposition PACU [facility] Billing Surgery - Charge Forward: Surgery Billing
== END 2023-12-03 11:40 | disposition home or self-care (01) ==
PROVIDERS: PCP Nurse Practitioner Family; Visit Provider Surgery
PROC: (CPT 21552; principal; 2023-12-03 09:00)
DX: D17.0 Benign lipomatous neoplasm of skin and subcutaneous tissue of head, face and neck (principal); I10 Essential (primary) hypertension; G47.33 Obstructive sleep apnea (adult) (pediatric); E66.01 Morbid (severe) obesity due to excess calories; Z68.41 Body mass index [BMI] 40.0-44.9, adult; Z79.51 Long term (current) use of inhaled steroids; Z79.85 Long-term (current) use of injectable non-insulin antidiabetic drugs; Z87.891 Personal history of nicotine dependence; Z80.9 Family history of malignant neoplasm, unspecified; Z82.49 Family history of ischemic heart disease and other diseases of the circulatory system
CPT/HCPCS: 21552; 88304; J0690; J1100; J2250; J2405; J2704; J3010; J7120

== ENCOUNTER 2023-12-10 13:21 | Outpatient (CLI) | payer BC, SELFPAY ==
--- NOTE | ~2023-12-10 | MR_ITS ---
EXAMINATION: MR brain/brain stem wo/w con DATE: 12/10/2023 14:17 INDICATION: Headache TECHNIQUE: Magnetic resonance imaging (MRI) of the brain and brainstem was performed without and with 17 mL Multihance intravenous contrast. Sequences included sagittal and axial T1-weighted SE, axial d iffusion-weighted FS SE, axial 3D SWAN, axial T2-weighted FLAIR, and axial T2-weighted FSE. Postcontr ast axial and coronal T1-weighted SE was obtained. Apparent diffusion coefficient (ADC) maps were cre ated. COMPARISON: None. FINDINGS: There are no areas of restricted diffusion to suggest acute infarction. No intracranial hemorrhage or abnormal intracranial mass lesion. There is a single nonspecific small focus of increased T2 signal intensity in the periventricular right frontal lobe white matter which is within normal limits for ag e. There are no intraparenchymal signal abnormalities seen on the other pulse sequences. The ventricl es are symmetric and normal in size. There are no abnormal extra-axial fluid collections. Flow voids are seen in the cerebral arteries on the T2-weighted sequences consistent with their expected patency . Mild mucoperiosteal thickening at the bilateral ethmoid sinuses. Visualized orbits and soft tissues are unremarkable. There are no areas of abnormal enhancement on the post contrast images. IMPRESSION: 1. No acute intracranial process or abnormally enhancing brain lesions. Reviewed, dictated and finalized at location A.
== END 2023-12-10 13:22 | disposition home or self-care (01) ==
PROVIDERS: PCP Nurse Practitioner Family
DX: G43.009 Migraine without aura, not intractable, without status migrainosus (principal)
CPT/HCPCS: 70553; A9577

== ENCOUNTER 2024-03-15 00:37 | Day surgery (SDC) | payer BC, SELFPAY ==
[2024-03-09 10:51] VITALS: BMI 38.0
--- NOTE | 2024-03-09 10:53 | PC.NURSE ---
Report to the Outpatient Waiting Room, entrance under the green pavilion located off [facility], at time _0830_ on date _[id number]_. Planned Procedure Time: _1030_. Time changes happen often and if your time is changed the preop area will call you the afternoon before. - You and your visitor will be asked to self-screen and do not enter if you have any COVID symptoms. - A mask is optional within the hospital at this time. Patients may have clear liquids (water, carbonated beverages, clear teas, apple juice) until 3 hours prior to surgery with a maximum of 20 ounces. - No food from midnight until time of surgery Take the following medications with a SIP of water the morning of surgery: __Propanolol DO NOT STOP ANY OF YOUR OTHER PRESCRIPTION MEDICATIONS PRIOR TO SURGERY ?EXCEPT THE FOLLOWING Medications to discontinue per physician ____patient stopped Diclofenac 03-04-2024, Enbrel 02-27-2024 and Vitamin D3 [id number]___ Please no make-up, nail palauan, hairspray, perfume, deodorant, or body powder the day of surgery. No jewelry (including any body piercings) or valuables the day of surgery, leave them at home. Please take a shower or bath the night before, or the morning of, surgery with an antibacterial soap. Wear comfortable, loose fitting clothing. - Jewelry must be removed prior to entering the operating room. Rings and piercings that are not removed may be cut off. - The hospital will not accept responsibility for valuables. - Please leave all valuables, including medications, at home the day of surgery. If you are going home after surgery, a licensed wedding transportation driver must drive you home. - NO public transportation without another adult if you receive anesthesia. - We recommend that an adult stay with you for 24 hours following discharge. - We also recommend that you do not drive, make important decision, drink alcoholic beverages, or take any drugs that were not prescribed by your health care provider for at least 24 hours after your discharge time. Follow any additional instructions given to you from your surgeon. If you or anyone in your household have experienced Covid symptoms in the past week, please notify your surgeon or the nurse liaison at the phone number below for possible testing. Telephone instructions given to __Elizabeth__and asked if any additional questions and then verbalized understanding. Patient advised to call surgeon office or pre surgery nurse liaison [phone] if any additional questions.
[2024-03-15] VITALS (11 sets, daily range): BP systolic 105–154; BP diastolic 75–97; PULSE 53–68; RESP 10–18; TEMP 36.1–36.2; O2SAT 95–100
--- NOTE | 2024-03-15 07:14 | WPDHPUPDATE1 ---
History and Physical Update Update Date/Time: 03/15/24 07:14 History and Physical has been reviewed, including an updated exam of the patient. There are NO changes in the patient's condition. Risks, benefits, and alternatives have been discussed and questions answered. Patient agrees to proceed with procedure.
[2024-03-15] MEDS: ACETAMINOPHEN 500 MG TABLET 1000 MG PO (09:02)
[2024-03-15] MEDS: LACTATED RINGERS 1,000 ML 30 ML IV CONT ×2 (09:14→12:27)
--- NOTE | 2024-03-15 09:17 | WPDANESEPPF ---
Anes - Initial Pre Proc Eval Procedure: Operation Date: 03/15/24 10:30 Proposed Procedures p Right Shoulder Arthroscopic Rotator Cuff Repair with Subacromial Decompression - Checo Mccullough MD Date/Time: 03/15/24 09:17 Surgeon: Checo Mccullough MD Pre Op Diagnosis: Rt Shoulder Partial Rot Cuff Tear Patient Data Age: 49 Gender: F Height: 1.47 m Weight: 82.7 kg Allergies Allergy/AdvReac Type Severity Reaction Status Date / Time No Known Allergies Allergy Verified 03/15/24 08:55 Home Medications Medication Instructions Recorded Confirmed Type albuterol sulfate 90 mcg/actuation 2 puff inhalation QID PRN 01/31/20 03/15/24 Rx aerosol inhaler shortness of breath or wheezing #8 grams diclofenac sodium 75 mg 75 mg PO DAILY 01/22/21 03/09/24 History tablet,delayed release etanercept 50 mg/mL (1 mL) 50 mg subcut WEEKLY 11/26/23 03/09/24 History subcutaneous pen injector (Enbrel [employer]) lisinopril 20 mg tablet 20 mg PO DAILY 11/26/23 03/15/24 History propranolol 60 mg capsule,24 60 mg PO DAILY MIGRAINES 11/26/23 03/15/24 History hr,extended release sumatriptan succinate 50 mg tablet 50 mg PO ONCE PRN MIGRAINES 11/26/23 03/09/24 History cholecalciferol (vitamin D3) 125 125 mcg PO DAILY 12/09/23 03/09/24 History mcg (5,000 unit) capsule Patient hx anesthesia problems: post op nausea/vomiting Family hx anesthesia problems: none Results Review: All pre-operative results and documents have been reviewed as part of the pre-operative evaluation. [facility] Past Medical History Medical History Bronchitis History of bruising easily History of postoperative nausea Hypertension Obstructive sleep apnea Psoriasis Rhinitis Surgical History Surgical History History of 1991 1993 1998 History of dental surgery Hx of biopsy Excisional biopsy right supraclavicular mass measuring 3 x 2 cm 12/03/23 Family History Family History Other Cancer Cerebrovascular accident Diabetes mellitus Hypertension Social History Social History Smoking packs per day: 0.5 Smoking cigarettes per day: 10.0 Years smoked: 8 Smoking pack-years: 4.00 Smoking status: Former smoker Tobacco type: cigarettes Smoking end date: 03/09/18 Additional smoking assessment comments: QUIT 2017 Alcohol intake: never Substance use: never Do You Feel Safe in your Home?: Yes Lack of Transportation: No Lack of Food: Never True Current Housing: I Have Housing Concerned About Future Housing: No Difficulty Paying Gas/Electric Bills: No Difficulty Paying for Meds: No Currently Unemployed: No Education: Associate Degree Difficulty w/ Childcare or Family Care: No Living arrangements: with family Spiritual care concerns: No Anes - Eval Final PreProcedure Day of Procedure 03/15/24 09:17 Patient weight: obese Heart: regular rate and rhythm Lungs: clear to auscultation Airway: Mallampati scale class II Neurological: alert and oriented Last oral intake: >/= 8 hours ASA classification: III Emergent: no Anesthetic plan: proceed Anesthesia type and monitoring: general ETT and standard monitoring Results Review: All pre-operative results and documents have been reviewed as part of the pre-operative evaluation. Informed Consent: The patient's anesthetic plan and its attendant risks and benefits were discussed with the patient/family/POA. Questions were solicited and answers provided to the satisfaction of the patient/family/POA.
[2024-03-15] MEDS: KETOROLAC 15 MG/ML VIAL (*BKC) IV PUSH (09:55)
[2024-03-15] MEDS: SCOPOLAMINE 1 MG PATCH 1 PATCH TRANSDERM (09:55)
[2024-03-15] MEDS: ceFAZolin 2 GM/D5W 50 ML 2 GM/50 ML BAG IVPB (10:00)
--- NOTE | 2024-03-15 10:01 | WPDANESPNB ---
Anes - Peripheral Nerve Block Date/Time: 03/15/24 10:01 I have discussed with the patient/family/POA the placement of a peripheral nerve block for post-operative pain management, including associated risks, benefits, complications, and side effects. Alternative methods of post-operative analgesia were detailed. Questions were solicited and answers provided to the satisfaction of the patient/family/POA. Time-Out: A pre-procedural Time-Out was completed immediately before starting the procedure and confirmed: Patient Identification, Site, Procedure, Patient Position and the Availability of Requisite Equipment. Clinical Indications: Acute post-operative pain management requested by the operative surgeon. Nerve Block Insertion Note Anes-nerve block: interscalene right Patient position: supine Skin prep: chlorhexidine Needle: 22 gauge, stimulating, insulated echogenic needle. Needle length: 50 mm Technique: ultrasound Technique comment: mid2mg [id number] Injectate: bupivacaine 0.5% with epi 5 mcg/ml (30ml no epi) and dexamethasone (mg) (4) Observations: tolerated well Complications: none Procedure start time:: 950 Procedure end time:: 957
[2024-03-15] MEDS: EPINEPHrine HCL INJ 1 MG/ML AMPUL 3 MG IRRIGATION (10:45)
--- NOTE | 2024-03-15 12:02 | W.PM.PROC2 ---
Procedure Note - Detailed Date of Procedure 03/15/24 Pre-op Diagnosis Rt Shoulder Partial Rot Cuff Tear Post-op Diagnosis Other (1. Small full thickness rotator cuff tear 2. Subacromial impingement) Procedure Performed Right shoulder 1. Arthroscopic rotator cuff repair (supraspinatus) 2. Arthroscopic subacromial decompression Surgeon Checo Mccullough MD [employer] Citlali Lucio PA-C Anesthesia General and Regional ( interscalene block) Indications MRI showed intrasubstance tear at the anterior infraspinatus, and upper subscapularis. Findings There was a high-grade articular supraspinatus tear and a small complete tear. The subscapularis had minimal split fraying only. The remaining articular structures were normal. There was evidence of subacromial impingement. Acromioplasty was performed. Double row suture anchor repair with 4 suture limbs passed through the small defect on the bursal side. Advanced obesity. Description of Procedure Preoperative antibiotics were given. An interscalene block was administered in the preoperative area. The patient was bought brought to the operating room. A general anesthetic was administered. The patient was carefully positioned in the beach chair position. The head and neck were carefully positioned. The non operative extremity was also carefully positioned. The shoulder was prepped and draped in the usual sterile fashion. Examination was performed. Standard posterior and anterior arthroscopic portals were established. Inflow achieved with the arthroscopic pump using saline and epinephrine. The glenohumeral joint was carefully inspected. There were no significant articular or cartilage issues. The subscapularis split tearing was minimal. The subscapularis however did show high-grade partial tearing greater than 50%. Attention was turned to the subacromial space. A complete bursectomy was performed. It was evident that the tear was complete at the anterior central portion of the supraspinatus. Approximately 5-10 mm in diameter. The rotator cuff and footprint were lightly debrided. A modest acromioplasty was performed. The tear configuration was carefully assessed. An all suture FiberTak anchor was inserted at the medial aspect of the footprint. The swedged on sutures were passed anterior and posterior and the sliding tape sutures were passed centrally. The sutures were then brought laterally to a SwiveLock anchor with a anatomic, nicely compressed, double row construct. The arthroscopic instruments were removed. The wounds were closed with 3-0 Monocryl subcuticular suture and steri strips. There were no complications. A sling was applied and the patient brought to the recovery room. Physician pest controller assistant, Citlali Lucio PA-C, required for surgery; including patient positioning, draping, arthroscopic camera operation, maintaining instrument position, suture retrieval, wound closure, and dressing and sling placement. Implants Arthrex: Fiber tack rotator cuff anchor double loaded. SwiveLock 4.75 anchor. Estimated Blood Loss 10 Pathology None sent Complications No immediate complications Condition Stable Disposition PACU [facility] Billing Surgery - Charge Forward: Surgery Billing
== END 2024-03-15 14:30 | disposition home or self-care (01) ==
PROVIDERS: PCP Nurse Practitioner Family; Visit Provider Orthopaedic Surgery
PROC: (CPT 29805; principal; 2024-03-15 10:30)
DX: M75.111 Incomplete rotator cuff tear or rupture of right shoulder, not specified as traumatic (principal); G89.18 Other acute postprocedural pain; I10 Essential (primary) hypertension; G47.33 Obstructive sleep apnea (adult) (pediatric); L40.9 Psoriasis, unspecified; Z79.620 Long term (current) use of immunosuppressive biologic; Z87.891 Personal history of nicotine dependence; E66.9 Obesity, unspecified; Z68.39 Body mass index [BMI] 39.0-39.9, adult; Z79.51 Long term (current) use of inhaled steroids
CPT/HCPCS: 29827; 29826; 64415; A9270; C1713; J0171; J0330; J0690; J1100; J1170; J1200; J1885; J2001; J2250; J2371; J2405; J2704; J3010; J7120

== ENCOUNTER 2024-09-20 08:31 | Emergency (ER) | payer BC, SELFPAY ==
--- NOTE | 2024-09-20 08:33 | ED.URI ---
HPI - URI/Sore Throat General Chief Complaint: Upper Respiratory Infection Stated Complaint: Cough/poss fever Time Seen by Provider: 09/20/24 08:32 Source: patient Mode of arrival: ambulatory Limitations: no limitations History of Present Illness HPI Narrative: Elizabeth is a 49-year-old female patient presenting to the clinic today with complaints of cough and possible fever x4 weeks. She reports she has had walking pneumonia exposure on September 09. States that she has a nonproductive cough that she cannot get rid of. Has been taking [id number] Robitussin and NyQuil for her symptoms without much relief. States she feels feverish in is having chills and hot sweats. Denies any chest pain but this stating she does have some mild shortness of breath as though she can not take a deep breath. Former smoker MD elicited complaint: cough Related Data Home Medications ?Medication ?Instructions ?Recorded ?Confirmed ?Last Taken ?Type etanercept 50 mg/mL (1 mL) 50 mg subcut WEEKLY 11/26/23 06/06/24 02/27/24 History subcutaneous pen injector (Enbrel SureClick) lisinopril 20 mg tablet 20 mg PO DAILY 11/26/23 06/06/24 03/14/24 History propranolol 60 mg capsule,24 60 mg PO DAILY MIGRAINES 11/26/23 09/20/24 03/15/24 History hr,extended release sumatriptan succinate 50 mg tablet 50 mg PO ONCE PRN MIGRAINES 11/26/23 09/20/24 03/01/24 History cholecalciferol (vitamin D3) 125 125 mcg PO DAILY 12/09/23 06/06/24 03/08/24 History mcg (5,000 unit) capsule cetirizine 10 mg tablet 10 mg PO .qd 09/20/24 09/20/24 Unknown History Allergies Allergy/AdvReac Type Severity Reaction Status Date / Time No Known Allergies Allergy Verified 09/20/24 08:37 Review of Systems Review of Systems: Pertinent positives per HPI. Patient denies any fever, chills, rash, headache, visual changes, dizziness, chest pain, palpitations, nausea, vomiting, diarrhea, constipation, abdominal pain, or any urinary issues. [facility] Past Medical History Medical History History of postoperative nausea History of bruising easily Obstructive sleep apnea Rhinitis Hypertension Bronchitis Psoriasis Surgical History Surgical History Status post right rotator cuff repair (~03/15/24) with Subacromial Decompression Hx of biopsy Excisional biopsy right supraclavicular mass measuring 3 x 2 cm 12/03/23 History of dental surgery History of 1991 1993 1998 Family History Family History Other Cancer Cerebrovascular accident Diabetes mellitus Hypertension Social History Social History Smoking packs per day: 0.5 Smoking cigarettes per day: 10.0 Years smoked: 8 Smoking pack-years: 4.00 Smoking status: Former smoker Tobacco type: cigarettes Smoking end date: 03/09/18 Additional smoking assessment comments: QUIT 2017 Alcohol intake: never Substance use: never Do You Feel Safe in your Home?: Yes Lack of Transportation: No Lack of Food: Never True Current Housing: I Have Housing Concerned About Future Housing: No Difficulty Paying Gas/Electric Bills: No Difficulty Paying for Meds: No Currently Unemployed: No Education: Associate Degree Difficulty w/ Childcare or Family Care: No Living arrangements: with family Spiritual care concerns: No Comments At the time of my signature, I reviewed and agree with the nursing past medical, surgical, social, and family history. There is no relevant family history pertinent to the patient complaint. Exam Narrative: General: Well-developed, well nourished, in no apparent distress Head: Normocephalic, atraumatic Eyes: Pupils equally round and reactive to light bilaterally, EOM intact, sclera and conjunctive clear, no discharge, lids normal Ears: TMs intact and congested ear canals clear, no drainage, grossly hearing normal. Nose: Nares patent, clear discharge, no inflammation, no sinus tenderness. Mouth: Oral pharynx without lesions or masses, good dentition, MMM. Neck: Supple, trachea midline, no enlargement of anterior or posterior cervical nodes, no thyroid masses or goiter palpable. Cardio: Regular rate and rhythm, s1 and s2 normal, no murmur appreciated. Resp: Clear to auscultation bilaterally, no rhonchi, rales, wheezing or rubs Course Course Emergency Course: Portions of this record may have been created with voice recognition software. Level of Care: Express Care Visit Vital Signs Vital signs: Vital signs reviewed MDM - URI/Sore Throat MDM Narrative Medical decision making narrative: At the time of visit patient is resting comfortably on the exam table. Patient appears to be nontoxic. Plan: I suspect patient has bronchitis. Also has exposure to walking pneumonia. Will place patient on prednisone, azithromycin, albuterol inhaler, and Tessalon Perles. Supportive measures were discussed with the patient and they voiced understanding discharge instructions and agrees to treatment plan. Return precautions reviewed Differential Diagnosis Differential diagnosis: Likely upper respiratory infection, otitis media, sinusitis, viral infection, bronchitis, influenza, pharyngitis and other (COVID) Discharge Plan Discharge Clinical Impression: Bronchitis Patient Disposition: Home, Self-Care Condition: Stable Instructions: Antibiotic Form, Acute Bronchitis (ED) Additional Instructions: Take prescription medications only as prescribed-azithromycin, prednisone, albuterol inhaler, and Tessalon Perles Increase fluids and stay well hydrated May take mucinex during the day time and benzonate at night Tylenol/motrin for pain/fever Flonase and OTC antihistamines as directed Vicks vapor rub to open sinuses Sinus rinses for congestion Cepacol spray, cough drops, throat lozenges, warm tea with honey/lemon, gargle salt water to soothe throat BRAT diet for diarrhea Clear liquids x 24 hours then advance as tolerated for nausea/vomiting Go to the ED if you develop a worsening in your condition- high fever not controlled by Tylenol or Motrin, dehydration, weakness, lethargy, shortness of breath, or chest pain. Follow up with your PCP in 3-5 days if symptoms persist. Patient Language: St Helenian Prescriptions: New azithromycin 250 mg tablet See Rx Instructions .ROUTE .COMPLEX Qty: 6 0RF Rx Instructions: For 250 mg dose pack: take 500 mg today (day 1), then 250 mg for 4 days (days 2-5) benzonatate 200 mg capsule 200 mg PO TID 7 Days Qty: 21 0RF prednisone 20 mg tablet 40 mg PO DAILY 5 Days Qty: 10 0RF albuterol sulfate 90 mcg/actuation HFA aerosol inhaler 2 puff inhalation Q4-6H PRN (Reason: shortness of breath or wheezing) 30 Days Qty: 8.5 0RF No Action cetirizine 10 mg tablet 10 mg PO .qd cholecalciferol (vitamin D3) 125 mcg (5,000 unit) capsule 125 mcg PO DAILY albuterol sulfate 90 mcg/actuation HFA aerosol inhaler 2 puff INHALATION QID PRN (Reason: shortness of breath or wheezing) Qty: 8 0RF Enbrel SureClick 50 mg/mL (1 mL) pen injector 50 mg SUBCUT WEEKLY Rx Instructions: ON SATURDAYS propranolol 60 mg capsule,extended release 24 hr 60 mg PO DAILY Rx Instructions: FOR MIGRAINES sumatriptan succinate 50 mg tablet 50 mg PO ONCE MDD 100 PRN (Reason: MIGRAINES) Rx Instructions: MIGRAINES lisinopril 20 mg tablet 20 mg PO DAILY ondansetron HCl 4 mg tablet 4 mg PO Q8H PRN (Reason: nausea and vomiting) Qty: 30 0RF Follow-up/Referrals: UNKNOWN,DOCTOR [Non-Staff] - Time of Disposition: 08:45 Quality NIHSS Nursing Documentation ED NIHSS nursing documentation: reviewed/agree
== END 2024-09-20 08:50 | disposition home or self-care (01) ==
PROVIDERS: Emergency Provider Nurse Practitioner Family; PCP Nurse Practitioner Family
DX: J40 Bronchitis, not specified as acute or chronic (principal); Z87.891 Personal history of nicotine dependence; I10 Essential (primary) hypertension
CPT/HCPCS: 99213; G0463

== ENCOUNTER 2025-03-15 18:54 | Emergency (ER) | payer BC, SELFPAY ==
--- NOTE | ~2025-03-15 | XR_ITS ---
HISTORY: fall 5 days ago, pain between MCP and PIP. COMPARISON: None TECHNIQUE: 2 views of the right fourth digit were performed FINDINGS: No acute or subacute fracture. Gullwing deformity is identified within the proximal interphalangeal joint spaces of the third, fourt h and fifth digits. Remaining spaces are preserved and alignment is maintained. Soft tissues are unremarkable without radiopaque foreign body or significant calcification. Age-appropriate mineralization. IMPRESSION: No acute fracture or dislocation. Reviewed, dictated and finalized at location A.
[2025-03-15 19:07] VITALS: BP 144/88; PULSE 77; RESP 16; TEMP 36.3; O2SAT 98
--- NOTE | 2025-03-15 20:58 | ED.UPPEXIN ---
HPI - Extremity Injury (Upper) General Chief Complaint: Extremity Injury, Upper Stated Complaint: rt 4th finger injury Time Seen by Provider: 03/15/25 19:35 Source: patient and RN notes reviewed Mode of arrival: ambulatory Limitations: no limitations History of Present Illness HPI narrative: 50-year-old female presents Express Care complaining of fall approximately 5 days ago. Patient stated she was walking through a shallow water when she tripped on a rock and fell on her right hand injuring her right ring finger. Patient denies hitting her head, lost his consciousness, neck pain, back pain, any other injuries. Patient has been trying Tylenol and ibuprofen without any relief. Patient denies any numbness or tingling. Related Data Home Medications ?Medication ?Instructions ?Recorded ?Confirmed ?Last Taken ?Type etanercept 50 mg/mL (1 mL) 50 mg subcut WEEKLY 11/26/23 06/06/24 02/27/24 History subcutaneous pen injector (Enbrel SureClick) lisinopril 20 mg tablet 20 mg PO DAILY 11/26/23 06/06/24 03/14/24 History propranolol 60 mg capsule,24 60 mg PO DAILY MIGRAINES 11/26/23 09/20/24 03/15/24 History hr,extended release sumatriptan succinate 50 mg tablet 50 mg PO ONCE PRN MIGRAINES 11/26/23 09/20/24 03/01/24 History cholecalciferol (vitamin D3) 125 125 mcg PO DAILY 12/09/23 06/06/24 03/08/24 History mcg (5,000 unit) capsule betamethasone dipropionate 0.05 % topical 03/15/25 Unknown History lotion certolizumab pegol 400 mg/2 mL mg subcut 03/15/25 Unknown History (200 mg/mL x2) subcutaneous syringe kit (Cimzia) cyclobenzaprine 5 mg tablet mg 03/15/25 Unknown History meloxicam 7.5 mg tablet mg 03/15/25 Unknown History methotrexate sodium 2.5 mg tablet mg 03/15/25 Unknown History propranolol 80 mg capsule,24 mg PO 03/15/25 Unknown History hr,extended release Allergies Allergy/AdvReac Type Severity Reaction Status Date / Time No Known Allergies Allergy Verified 03/15/25 19:11 Review of Systems Review of Systems: CONSTITUTIONAL: Denies fever, chills, or sweats. EYES: Denies visual changes, redness, or discharge. ENT: Denies rhinorrhea, congestion, sore throat, or otalgia. CARDIOVASCULAR: Denies chest pain, palpitations, or edema. RESPIRATORY: Denies cough or dyspnea. GASTROINTESTINAL: Denies abdominal pain, nausea, vomiting, or diarrhea. GENITOURINARY: Denies dysuria or hematuria. SKIN: Denies rash, wound, or itching. MUSCULOSKELETAL: Denies back pain, joint pain, or myalgia. Positive for right ring finger injury and swelling NEUROLOGIC: Denies headache, numbness, or weakness. PSYCHIATRIC: Denies anxiety or depression. All other systems reviewed are negative, except as documented in HPI. [facility] Past Medical History Medical History History of postoperative nausea History of bruising easily Obstructive sleep apnea Rhinitis Hypertension Bronchitis Psoriasis Surgical History Surgical History Status post right rotator cuff repair (~03/15/24) with Subacromial Decompression Hx of biopsy Excisional biopsy right supraclavicular mass measuring 3 x 2 cm 12/03/23 History of dental surgery History of 1991 1993 1998 Family History Family History Other Cancer Cerebrovascular accident Diabetes mellitus Hypertension Social History Social History Smoking packs per day: 0.5 Smoking cigarettes per day: 10.0 Years smoked: 8 Smoking pack-years: 4.00 Smoking status: Former smoker Tobacco type: cigarettes Smoking end date: 03/09/18 Additional smoking assessment comments: QUIT 2017 Alcohol intake: never Substance use: never Do You Feel Safe in your Home?: Yes Lack of Transportation: No Lack of Food: Never True Current Housing: I Have Housing Concerned About Future Housing: No Difficulty Paying Gas/Electric Bills: No Difficulty Paying for Meds: No Currently Unemployed: No Education: Associate Degree Difficulty w/ Childcare or Family Care: No Living arrangements: with family Spiritual care concerns: No Comments At the time of my signature, I reviewed and agree with the nursing past medical, surgical, social, and family history. There is no relevant family history pertinent to the patient complaint. Exam Narrative: GENERAL: This is a well-nourished, well-developed adult, in no apparent distress. They are non ill-appearing, nontoxic appearing. HEAD: normocephalic, atraumatic. EYES: Sclera clear/white. Vision is grossly intact. Conjunctiva normal. Extraocular movement intact. EARS: External ears normal Hearing grossly intact. NOSE: External nose normal THROAT: Mucous membranes moist NECK: Neck supple CARDIOVASCULAR: Regular rate and rhythm RESPIRATORY: Respiratory rate normal, respiratory effort nonlabored, no respiratory distress NEURO: awake, alert, and oriented to person, place and time. There were no obvious focal neurologic abnormalities. EXTREMITIES: Right ring finger: No obvious deformity. No bony tenderness to the hand. Mild swelling to right ring finger. Mild tenderness through full range of motion. Patient is able to flex and extend her right ring finger against resistance at the DIP, PIP, MCP. Tenderness to palpation of the right distal ring finger between the MCP and PIP joint. Capillary refill less than 3 seconds. Right radial Pulse 2 +palpable. Normal sensation. Neurovascular status intact distal injury. Radial ulnar nerve distribution intact. Patient is able to wiggle her fingers. Patient can make a fist, stop sign, thumbs-up sign, okay sign. BACK: Nontender without deformity. Course Course Emergency Course: Portions of this record may have been created with voice recognition software Level of Care: Express Care Visit Vital Signs Vital signs: Vital Signs Temperature 97.4 F L 03/15/25 19:07 Pulse Rate 77 03/15/25 19:07 Respiratory Rate 16 03/15/25 19:07 Blood Pressure 144/88 H 03/15/25 19:07 Pulse Oximetry 98 03/15/25 19:07 Temperature 97.4 F L 03/15/25 19:07 Pulse Rate 77 03/15/25 19:07 Respiratory Rate 16 03/15/25 19:07 Blood Pressure 144/88 H 03/15/25 19:07 Pulse Oximetry 98 03/15/25 19:07 Reviewed MDM - Extremity Injury (Upper) MDM Narrative Medical decision making narrative: X-ray right ring finger negative for any fracture or acute findings. Neuro Vascular status intact distal to injury. Patient likely has finger sprain. Advised conservative therapy. Discussed physical exam findings. Advised supportive measures and signs/symptoms to go to the ER. Pt is appropriate for outpt treatment and f/u. Differential Diagnosis Differential diagnosis: Likely finger sprain, dislocation of finger and other (Finger fracture) Imaging Data Radiologist's impression: ITS Impressions Finger X-Ray 03/15/25 19:40 IMPRESSION: No acute fracture or dislocation. Critical Care Time Critical Care Time Critical Care Time: No Discharge Plan Discharge Clinical Impression: Finger injury Qualifiers: Encounter type: initial encounter Laterality: right Qualified Code(s): S69.91XA - Unspecified injury of right wrist, hand and finger(s), initial encounter Patient Disposition: Home Condition: Stable Instructions: Finger Sprain (ED) Additional Instructions: The x-ray of your right ring finger is negative for any fracture or acute findings. It is likely a finger sprain. Apply ice 15-20 minute intervals several times a day Motrin 600mg -800mg every 8 hours, alternate with Tylenol 1000mg every 8 hours as needed Follow up with your primary care provider as needed in 1-2 weeks if pain persists. Patient Language: Singaporean Prescriptions: No Action meloxicam 7.5 mg tablet methotrexate sodium 2.5 mg tablet propranolol 80 mg capsule,extended release 24 hr PO betamethasone dipropionate 0.05 % lotion TOPICAL cyclobenzaprine 5 mg tablet Cimzia 400 mg/2 mL (200 mg/mL x 2) syringe kit SUBCUT albuterol sulfate 90 mcg/actuation HFA aerosol inhaler 2 puff inhalation Q4-6H PRN (Reason: shortness of breath or wheezing) 30 Days Qty: 8.5 0RF cholecalciferol (vitamin D3) 125 mcg (5,000 unit) capsule 125 mcg PO DAILY albuterol sulfate 90 mcg/actuation HFA aerosol inhaler 2 puff INHALATION QID PRN (Reason: shortness of breath or wheezing) Qty: 8 0RF Enbrel SureClick 50 mg/mL (1 mL) pen injector 50 mg SUBCUT WEEKLY Rx Instructions: ON SATURDAYS propranolol 60 mg capsule,extended release 24 hr 60 mg PO DAILY Rx Instructions: FOR MIGRAINES sumatriptan succinate 50 mg tablet 50 mg PO ONCE MDD 100 PRN (Reason: MIGRAINES) Rx Instructions: MIGRAINES lisinopril 20 mg tablet 20 mg PO DAILY Follow-up/Referrals: Blanca,Priti Benedict NP [Primary Care Provider] - Time of Disposition: 19:56
== END 2025-03-15 19:59 | disposition home or self-care (01) ==
PROVIDERS: PCP Nurse Practitioner Family
DX: S69.91XA Unspecified injury of right wrist, hand and finger(s), initial encounter (principal); W18.09XA Striking against other object with subsequent fall, initial encounter; I10 Essential (primary) hypertension; Z87.891 Personal history of nicotine dependence
CPT/HCPCS: 73140; 99213; G0463

== ENCOUNTER 2025-04-13 14:15 | Outpatient (CLI) | payer BC, SELFPAY ==
--- NOTE | ~2025-04-13 | XR_ITS ---
XR knee LT min 4V 04/13/2025 14:50 Indication: Left knee pain after twisting injury Procedure: 4 views left knee Comparison: No prior studies for comparison. Findings: No fracture, subluxation or dislocation. No significant joint effusion. No foreign bodies. Impression: 1: No significant bone or joint abnormality. Reviewed, dictated and finalized at location A. Impression: 1: No significant bone or joint abnormality.
--- OUTSIDE RECORDS SUMMARY | 2025-04-13 14:22 | XMS_ITS | Clinical Summary ---
Author Organization [facility] Address [address] [place] [address] Care Team Providers Care Final Inspector Name Role Phone Drew iRos NP Primary Care Provider [phone] Allergies No known active allergies Medications diclofenac DR (VOLTAREN) 75 mg EC tablet diclofenac sodium 75 mg tablet,delayed release TAKE 1 TABLET BY MOUTH TWICE DAILY Active estradioL (ESTRACE) 1 mg tablet estradiol 1 mg tablet TAKE 1 TABLET BY MOUTH DAILY Active clobetasoL (TEMOVATE) 0.05 % ointmentIndicati ons:Rash and other nonspecific skin eruption Apply a thin layer of ointment to the affected area of the thighs 1-2 times daily as needed until rash improves 60 g 2 1 Active Additional Information Patient not taking.Reported on 03/14/2025 cetirizine (ZyrTEC) 10 mg tablet cetirizine 10 mg tablet TAKE 1 TABLET BY MOUTH DAILY NEEDED FOR ALLERGY SYMPTOMS Active clindamycin (CLEOCIN) 300 mg capsule clindamycin HCl 300 mg capsule TAKE 1 CAPSULE BY MOUTH THREE TIMES DAILY. STOP IF DIARRHEA OCCURS Active EnbreL SureClick 50 mg/mL (1 mL) pen injector Inject 1 mL (50 mg total) under the skin once a week 3 Active folic acid (FOLVITE) 1 mg tablet Take 2 tablets (2 mg total) by mouth daily 3 Active Taltz Autoinjector auto-injector 3 Active lisinopriL (PRINIVIL,ZESTRI L) 20 mg tablet lisinopril 20 mg tablet Active meloxicam (MOBIC) 7.5 mg tablet Take 1 tablet (7.5 mg total) by mouth daily 2 Active methotrexate 2.5 mg tablet methotrexate sodium 2.5 mg tablet Active ondansetron (ZOFRAN) 4 mg tablet ondansetron HCl 4 mg tablet TAKE 1 TABLET BY MOUTH EVERY 8 HOURS NEEDED FOR NAUSEA AND VOMTING Active predniSONE (DELTASONE) 10 mg tablet TAKE 2 TABLETS BY MOUTH ONCE DAILY X3 DAYS, THEN 1 TABLET ONCE DAILY X4 DAYS. 3 Active predniSONE (DELTASONE) 20 mg tablet TAKE 2 TABLETS BY MOUTH EVERY DAY FOR 5 DAYS 4 Active triamcinolone (KENALOG) 0.1 % cream Apply topically 2 (two) times a day 3 Active rizatriptan (MAXALT) 10 mg tabletIndication s:Migraine Take 1 tablet (10 mg total) by mouth as needed for migraine May repeat in 2 hours if unresolved. Do not exceed 30 mg in 24 hours. 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 Psoriatic arthritis 08/21/2021 Sjogren's syndrome 10/24/2020 Pelvic and perineal pain 11/02/2019 Hypertrophy of uterus 06/15/2019 Microscopic hematuria 10/19/2013 test negative 07/08/2013 Abdominal pain 06/22/2013 Encounters Date Type Department Care Team Description 03/14/2025 2:30 PM CDT Office Visit [facility] Neurology [address] [place] [phone] Aguilar Guzman MD Migraine without aura and without status migrainosus, not intractable (Primary Dx); Memory change from Last 3 Months Social History Tobacco Use Types Packs/Day Years Used Date Smoking Tobacco: Former Cigarettes 0.3 6.6 S tarted: 09/21/2018 Tobacco Cessation:Counseling Given: Not Answered Comments Unknown Sex and Gender Information Value Date Recorded Sex Assigned at Not on file Legal Sex Female 9:54 PM CDT Gender Identity Not on file Sexual Orientation Not on file Obstetrics History Last Filed Vital Signs Vital Sign Reading Time Taken Comments Blood Pressure 110/80 03/14/2025 2:24 PM CDT Pulse 62 03/14/2025 2:24 PM CDT Temperature - - Respiratory Rate 20 03/14/2025 2:24 PM CDT Oxygen Saturation 98% 03/14/2025 2:24 PM CDT Inhaled Oxygen Concentration - - Weight 86.2 kg (190 lb) 03/14/2025 2:24 PM CDT Height 144.8 cm (4' 9) 03/14/2025 2:24 PM CDT Body Mass Index 41.12 03/14/2025 2:24 PM CDT Plan of Treatment Health Maintenance Due Date Last Done Comments Breast Cancer Screening-Mammogram 1973 Cervical Cancer Screening 1973 Colon Cancer Screening-Colonoscopy 1973 Depression Screening 1973 Hepatitis C Screening 1973 Hepatitis B Screening 1991 Regular Well Visit/Exam 18-64 1991 Pneumococcal vaccine <65 (1 of 2 - PCV) 01/14/1992 Covid-19 Vaccine ( - 2023- season) 2024 10/10/2020, 09/18/2020, 08/29/2020 Influenza Vaccine (#1) 2025 07/12/2021 DTaP/Tdap/Td Vaccine (4 - Td or Tdap) 07/16/2032 07/16/2022, 06/07/2016, 07/14/2013 Zoster Vaccine Completed 05/15/2023, 01/17/[address] [place] [place] [address] [employer] Address: [address] [place] [address] [employer] Member Subscriber Plan / Payer (Ef fective 2022-Present) Name:Elizabeth Reich Relation to Subscriber:Self Name:Elizabeth Reich Payer ID:[id number] (NAIC) Type:[facility] Address: [address] [place] [id number] Care Teams Final Inspector Relationship Specialty Start Date End Date Drew Rios NP PCP - General Internal Medicine 01/28/21
--- OUTSIDE RECORDS SUMMARY | 2025-04-13 14:22 | XMS_ITS | Encounter Summary ---
Author Organization [facility] Address [address] [place] [address] Care Team Providers Care Glassworker Name Role Phone Gabriel Drew Klein APRN-PRODUCTION LINE SOLDERER Primary Care Provider Encounter Details Date Type Department Care Team (Late st Contact Info) Description 02/21/2025 Results Follow-Up [facility] Medical [facility] - Rheumatology [address] [place] [id number] Bea Ortiz MD [address] [place] [phone] Social History Tobacco Use Types Packs/Day Years Used Date Smoking Tobacco: Former Cigarettes 0 09/21/2013 - 09/21/2016 Smokeless Tobacco: Never Alcohol Use Standard Drinks/Week Comments Yes 0 (1 standard drink = 0.6 oz pur e alcohol) Monthly PHQ-2 Answer Date Recorded Patient Health Questionnaire-2 Score 0 02/21/2025 Comments No Sex and Gender Information Value Date Recorded Sex Assigned at Not on file Legal Sex Female 5:23 AM EPIC AMBULATORY ANALYST Gender Identity Female 11/29/2020 9:01 AM EPIC AMBULATORY ANALYST Sexual Orientation Not on file documented as of this encounter Functional Status * Over the past 2 weeks, how often have you been bothered by any of the following problems? Question Answer Date of Assessment Author Little interest or pleasure in doing things Not at all 02/21/2025 2:10 PM CDT Fara Rodas Feeling down, depressed, or hopeless Not at all 02/21/2025 2:10 PM Fara Dolan Patient Health Questionnaire -2 Score 0 02/21/2025 2:10 PM CDT Fara Rodas documented as of this encounter Plan of Treatment Upcoming Encounters Date Type Department Care Team (Late st Contact Info) Description 07/25/2025 2:40 PM EPIC AMBULATORY ANALYST Office Visit [facility] Medical [facility] - Rheumatology [address] [place] [id number] Bea Ortiz MD [address] [place] [phone] documented as of this encounter Visit Diagnoses Not on filedocumented in this encounter Care Teams Glassworker Relationship Specialty Start Date End Date Drew Rios, SHEET ROCK SANDER-PRODUCTION LINE SOLDERER [address] [place] [phone] PCP - General Nurse Practitioner Family 11/28/20 documented as of this encounter
--- OUTSIDE RECORDS SUMMARY | 2025-04-13 14:22 | XMS_ITS | Referral Summary ---
Author Organization [facility] Address [address] [place] [address] Care Team Providers Care Computer Lab Aide Name Role Phone Drew Rios NP Primary Care Provider [phone] Encounters Date Type Department Care Team Description 03/14/2025 2:30 PM CDT Office Visit [facility] Neurology [address] [place] [phone] Aguilar Guzman MD Migraine without aura and without status migrainosus, not intractable (Primary Dx); Memory change from Last 3 Months Allergies No known active allergies Medications diclofenac [...] 10/19/2013 test negative 07/08/2013 Abdominal pain 06/22/2013 Social History Tobacco Use Types Packs/Day Years Used Date Smoking Tobacco: Former Cigarettes 0.3 6.6 S tarted: 09/21/2018 Tobacco Cessation:Counseling Given: Not Answered Comments Unknown Sex and Gender Information Value Date Recorded Sex Assigned at Not on file Legal Sex Female 9:54 PM CDT Gender Identity Not on file Sexual Orientation Not on file Last Filed Vital Signs Vital Sign Reading [...] 03/14/2025 2:24 PM CDT Plan of Treatment Not on file Insurance [facility] [employer] [facility] [employer] Address: [facility] [id number] [place] [address] Trilliant O Care Teams Computer Lab Aide Relationship Specialty Start Date End Date Drew Rios NP PCP - General Internal Medicine 01/28/21
--- OUTSIDE RECORDS SUMMARY | 2025-04-13 14:22 | XMS_ITS | Clinical Summary ---
Author Organization [facility] [employer] Address [address] [facility] [place] [address] Care Team Providers Care Sewage Screen Operator Name Role Phone Drew Rios APRN-MAGNETIC TAPE COMPOSER OPERATOR Primary Care Provider Source Comments [facility] [employer],non-owned Affiliates and Associated Physician Practices is amultiple site organization consisting of ambulatory clinics and hospital sitesin [place], [place], [place] and [place]. This disclosure is being madepursuant to the Care Everywhere program and may not contain all information available regarding this patient. Last updated 18.[facility] Allergies No known active allergies Medications * Be aware that medications may not be up to date on this document. Alwaysverify current medications with the patient. albuterol HFA (PROVENTIL;CALLIE RADHA;PROAIR) 108 (90 Base) MCG/ACT inhaler INHALE 2 PUFFS BY MOUTH FOUR TIMES DAILY NEEDED FOR WHEEZING OR SHORTNESS OF BREATH 11/13/19 21 Active cetirizine (ZYRTEC) 10 MG tablet TAKE 1 TABLET BY MOUTH DAILY NEEDED FOR ALLERGY SYMPTOMS 01/23/20 21 Active lisinopril (Prinivil; Zestril) 20 MG tablet lisinopril 20 mg tablet Active propranolol ER 24hr (Inderal LA) 60 MG capsule Take 1 (one) capsule by mouth once daily 01/03/20 24 Active betamethasone dipropionate 0.05 % lotion APPLY A FEW DROPS TOPICALLY TO THE AFFECTED AREA TWICE DAILY IN THE MORNING AND AT BEDTIME . RUB IN GENTLY AND COMPLETELY 60 mL 01/19/20 24 Active pseudoephedrine (Sudafed) 30 MG tablet Take 1 (one) tablet by mouth every 8 hours as needed 10/06/19 24 Active folic acid (Folvite) 1 MG tablet Take 2 (two) tablets by mouth once daily 180 tablet 3 10/18/19 25 Active certolizumab pegol (Cimzia) injectionIndicat ions:Psoriatic arthritis (HCC) Inject 400 (four hundred) mg subcutaneously every 28 days for maintenance dosing 1 kit 11 12/08/19 25 Active certolizumab pegol (Cimzia) injectionIndicat ions:Psoriatic arthritis (HCC) Inject 400mg (two prefilled syringes) at weeks 0, 2 and 4 for loading dose. 6 mL 12/08/19 25 Active rizatriptan (Maxalt) 10 MG tablet TAKE 1 TAB BY MOUTH NEEDED FOR MIGRAINE MAY REPEAT IN 2 HOURS IF UNRESOLVED. MAX 3 TABS/24 HRS Active SUMAtriptan (Imitrex) 50 MG tablet TAKE 1 TABLET BY MOUTH ONCE NEEDED FOR MIGRAINE. MAY REPEAT ONE TIME AFTER 2 HOURS IF NEEDED. 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 Encounters Date Type Department Care Team Description 02/21/2025 2:00 PM CDT Office Visit [facility] - Rheumatology [address] [place] [id number] Bea Ortiz MD Psoriatic arthritis (HCC) (Primary Dx) 02/21/2025 Results Follow-Up [facility] - Rheumatology [address] [place] [phone] Bea Ortiz MD 02/21/2025 Travel from Last 3 Months Immunizations Immunization Administration Dates Next Due Covid Pfizer primary monoval ent 12+ yr 0.3mL Purple cap 10/10/2020,08/29/2020 Family History Medical History Relation Name Comments Hypertension Father Diabetes - Type 2 Mother Relation Name Status Comments Father Alive Mother Alive Social History Tobacco Use Types Packs/Day Years Used Date Smoking Tobacco: Former Cigarettes 0 09/21/2013 - 09/21/2016 Smokeless Tobacco: Never Tobacco Cessation:Counseling Given: Not Answered Alcohol Use Standard Drinks/Week Comments Yes 0 (1 standard drink = 0.6 oz pur e alcohol) Monthly PHQ-2 Answer Date Recorded Patient Health Questionnaire-2 Score 0 02/21/2025 Comments No Sex and Gender Information Value Date Recorded Sex Assigned at Not on file Legal Sex Female 5:23 AM WELDING ESTIMATOR Gender Identity Female 11/29/2020 9:01 AM WELDING ESTIMATOR Sexual Orientation Not on file Last Filed Vital Signs Vital Sign Reading Time Taken Comments Blood Pressure 149/90 02/21/2025 2:10 PM CDT Pulse 73 02/21/2025 2:10 PM CDT Temperature 36.7 C (98.1 F) 08/20/2022 8:46 AM WELDING ESTIMATOR Respiratory Rate 24 08/20/2022 8:46 AM WELDING ESTIMATOR Oxygen Saturation 97% 02/21/2025 2:10 PM CDT Inhaled Oxygen Concentration - - Weight 86.5 kg (190 lb 9.6 oz) 02/21/2025 2:10 P M CDT Height 147.3 cm (4' 10) 10/18/2024 3:11 PM WELDING ESTIMATOR Body Mass Index 39.84 10/18/2024 3:11 PM WELDING ESTIMATOR Plan of Treatment Upcoming Encounters Date Type Department Care Team (Late st Contact Info) Description 07/25/2025 2:40 PM WELDING ESTIMATOR Office Visit [facility] - Rheumatology [address] [place] [id number] Bea Ortiz MD [address] [place] [phone] Health Maintenance Due Date Last Done Comments COLON MONITORING 1973 COLONOSCOPY - COLON CA SCREENING 1973 CT COLONOGRAPHY - COLON CA SCREENING 1973 FIT - COLON CA SCREENING 1973 FLEX SIG - COLON CA SCREENING 1973 LIPID TESTING 1973 MAMMOGRAM 1973 HIV SCREENING 01/14/1988 DTAP/TDAP/TD VACCINES (1 - Tdap) 01/14/1992 HEPATITIS B VACCINE (1 of 3 - 19+ 3-dose series) 01/14/1992 PAP SMEAR 1994 PNEUMOCOCCAL VACCINE 50+ (1 of 1 - PCV) 2023 ZOSTER VACCINE (1 of 2) 2023 COVID-19 VACCINE (4 - season) 2024 10/10/2020, 09/18/2020, 08/29/2020 INFLUENZA VACCINE (#1) 2025 07/12/2021 COLOGUARD (AGES 45-75) - COLON CA SCREENING 07/16/2025 07/16/2022 Colorectal Cancer Screening 07/16/2025 SCREENING FOR DIABETES 02/22/2028 , 10/13/2024, 01/19/2024, Additional history exists HEPATITIS C SCREENING Completed 08/21/2021 DEPRESSION SCREENING Completed 02/21/2025, 04/10/2023, 08/20/2022 HIB VACCINE Aged Out No longer eligi ble based on patient's age to complete this topic HPV VACCINE Aged Out No longer eligi ble based on patient's age to complete this topic MENINGOCOCCAL (Group B) VACCINE SHARED DECISION-MAKING Aged Out No longer eligible based on patient's age to complete this topic MENINGOCOCCAL GROUPS A/C/Y/W VACCINE Aged Out No longer eligible based on patient's age to complete this topic Procedures Procedure Name Priority Date/Time Associated Diagnosis Comments C-REACTIVE PROTEIN Routine 02/21/2025 2: 45 PM CDT Psoriatic arthritis (HCC) ERYTHROCYTE SEDIMENTATION RATE Routine 02/21/2025 2:45 PM CDT Psoriatic arthritis (HCC) COMPREHENSIVE METABOLIC PANEL Routine 02/21/2025 2:45 PM CDT Psoriatic arthritis (HCC) CBC W AUTO DIFFERENTIAL Routine 02/21/2025 2:45 PM CDT Psoriatic arthritis (HCC) HEPATITIS SCREEN ACUTE Routine 4:11 PM WELDING ESTIMATOR Psoriatic arthritis from Last 3 Months or Most Recently Relevant to Health Maintenance Results * C-REACTIVE PROTEIN (02/21/2025 2:45 PM CDT) C-Reactive Protein 0.26 <=0.50 mg/dL [facility] ACCOUNT BILL Blood BLOOD SPECIMEN / Unknown 02/21/2025 2:45 PM CDT 02/21/2025 Narrative [facility] ACCOUNT BILL - 02/21/2025 11:08 PM CDT Performed at: [address] [place] [address] Daniella Russ [place], [place] [id number] Orthotist Prosthetist: Arnol Joy [facility], Phone: [phone] Bea Ortiz MD LAB - CHEMISTRY ORDERABLES Final Result Performing Organization Address [facility] Co de Phone Number [facility] ACCOUNT BILL [address] [place] [address] * ERYTHROCYTE SEDIMENTATION RATE (02/21/2025 2:45 PM CDT) Pathologist [facility] Erythrocyte Sedimentation Rate Westergren 15 0 - 30 MM/HR [facility] ACCOUNT BILL Blood BLOOD SPECIMEN / Unknown 02/21/2025 2:45 PM CDT 02/21/2025 Narrative [facility] ACCOUNT BILL - 02/21/2025 9:08 PM CDT Performed at: [address] [place] [address] [place] [address] [place], [place] [id number] Orthotist Prosthetist: Arnol Joy [facility], Phone: [phone] Bea Ortiz MD LAB - HEMATOLOGY ORDERABLES Kaleigh l Result Performing Organization Address City/[facility] Co de Phone Number [facility] ACCOUNT BILL [address] [place] [address] * (ABNORMAL) CBC WITH DIFFERENTIAL (02/21/2025 2:45 PM CDT) Pathologist [facility] WBC 7.6 4.0 - 10.7 x10E9/L [facility] ACCOUNT BILL RBC 4.66 3.90 - 5.20 x10E12/L [facility] ACCOUNT BILL Hemoglobin 14.4 11.9 - 15.8 g/dL [facility] ACCOUNT BILL Hematocrit 42.7 34.8 - 46.1 % [facility] ACCOUNT BILL MCV 91.6 80.0 - 98.0 fL [facility] ACCOUNT BILL MCH 30.9 26.7 - 33.6 pg [facility] ACCOUNT BILL MCHC 33.7 31.7 - 36.3 g/dL [facility] ACCOUNT BILL RDW 12.9 11.3 - 14.8 % [facility] ACCOUNT BILL Platelet Count 245 150 - 420 x10E9/L [facility] ACCOUNT BILL Comment:MPV (CS) 11.6 fL 7.8 -11.4 H Granulocytes % 40.4(L) 41.0 - 74.0 % [facility] ACCOUNT BILL Lymphocytes % 47.2(H) 17.0 - 47.0 % [facility] ACCOUNT BILL Monocytes % 8.2 3.0 - 11.0 % [facility] ACCOUNT BILL Eosinophils % 3.4 0.0 - 7.0 % [facility] ACCOUNT BILL Basophils % 0.5 0.0 - 1.6 % [facility] ACCOUNT BILL Granulocytes Absolute 3.06 1.60 - 7.50 x10E9/L [facility] ACCOUNT BILL Lymphocytes Absolute 3.57 1.00 - 4.40 x10E9/L [facility] ACCOUNT BILL Monocytes Absolute 0.62 0.15 - 1.00 x10E9/L [facility] ACCOUNT BILL Eosinophils Absolute 0.26 0.00 - 0.60 x10E9/L [facility] ACCOUNT BILL Basophils Absolute 0.04 0.00 - 0.13 x10E9/L [facility] ACCOUNT BILL Immature Granulocytes 0.3 0.0 - 1.0 % [facility] ACCOUNT BILL Blood BLOOD SPECIMEN / Unknown 02/21/2025 2:45 PM CDT 02/21/2025 Narrative [facility] ACCOUNT BILL - 02/21/2025 9:08 PM CDT Performed at: [address] [place] [id number] Petrona Joshi, LIONEL Moreno [id number] Orthotist Prosthetist: Arnol Joy [facility], Phone: [phone] us Bea Ortiz MD LAB - HEMATOLOGY ORDERABLES Kaleigh l Result [facility] ACCOUNT BILL [address] [place] [address] * (ABNORMAL) COMPREHENSIVE METABOLIC PANEL (02/21/2025 2:45 PM CDT) Glucose 75 70 - 99 mg/dL [facility] ACCOUNT BILL BUN 14 7 - 26 mg/dL [facility] ACCOUNT BILL Creatinine 0.88 0.57 - 1.11 mg/dL [facility] ACCOUNT BILL eGFR by CKD-EPI 79(L) >=90 mL/min/1.7 3 m2 [facility] ACCOUNT BILL Sodium 143 136 - 145 mmol/L [facility] ACCOUNT BILL Potassium 4.3 3.5 - 5.1 mmol/L [facility] ACCOUNT BILL Chloride 106 98 - 107 mmol/L [facility] ACCOUNT BILL CO2 28 22 - 29 mmol/L [facility] ACCOUNT BILL Calcium 8.8 8.4 - 10.4 mg/dL [facility] ACCOUNT BILL Protein Total 6.9 6.4 - 8.3 gm/dL [facility] ACCOUNT BILL Albumin 3.9 3.1 - 4.5 gm/dL [facility] ACCOUNT BILL Bilirubin Total 0.4 0.2 - 1.2 mg/dL [facility] ACCOUNT BILL Alkaline Phosphatase 105 40 - 150 U/L [facility] ACCOUNT BILL AST 28 10 - 48 U/L [facility] ACCOUNT BILL ALT 33 6 - 57 U/L [facility] ACCOUNT BILL Blood BLOOD SPECIMEN / Unknown 02/21/2025 2:45 PM CDT 02/21/2025 Narrative [facility] ACCOUNT BILL - 02/21/2025 11:08 PM CDT Performed at: [address] [place] [address] [place] , [place], [place] [id number] Orthotist Prosthetist: Arnol Joy [facility], Phone: [phone] us Bea Ortiz MD LAB - CHEMISTRY ORDERABLES Final Result Performing Organization Address City/[facility]/ZIP Co de Phone Number [facility] ACCOUNT BILL [address] [place] [address] * HEPATITIS SCREEN ACUTE (08/21/2021 4:11 PM WELDING ESTIMATOR) Hepatitis A Virus Antibody IgM Negative Negative [facility] ACCOUNT BILL Hepatitis B Virus Surface Antigen Negative Negative [facility] ACCOUNT BILL Hepatitis B Core Virus Antibody IgM Negative Negative [facility] ACCOUNT BILL Hepatitis C Antibody <0.1 0.0 - 0.9 s/co ratio [facility] ACCOUNT BILL Comment: Negative: < 0.8 Indeterminate: 0.8 - 0.9 Positive: > 0.9 . The CDC recommends that a positive HCV antibody result be followed up with a HCV Nucleic Acid Amplification test (279539). FASTING Blood BLOOD SPECIMEN / Unknown 08/21/2021 4:11 PM WELDING ESTIMATOR 08/21/2021 Narrative Resulting Agency Comment Lab [facility] performed at: [facility] [address] [place] [id number] Bea Ortiz MD LAB - CHEMISTRY ORDERABLES Final Result Performing Organization Address City/State/[facility] Co de Phone Number [facility] ACCOUNT BILL [address] [place] [address] from Last 3 Months or Most Recently Relevant to Health Maintenance [place] [address] [place] [address] AN[employer]/[facility] SELF PAY NO INSURANCE Member Subscriber Plan / Payer (Ef fective for All Dates) Name:Maria C Quinteros Member ID:Not on file Relation to Subscriber:Not on file Name:MARIA C QUINTEROS Subscriber ID:Not on file Address: [address] [place] [phone] Payer ID:Not on file Group ID:Not on file Type:Self Pay Address: [place], [place] [facility] SELF PAY NO INSURANCE Member Subscriber Plan / Payer (Ef fective for All Dates) Name:Maria C Quinteros Member ID:Not on file Relation to Subscriber:Not on file Name:ALDAIRMARIA C Subscriber ID:Not on file Address: [address] [place] [phone] Payer ID:Not on file Group ID:Not on file Type:Self Pay Address: [place], [place] [employer] [place] SELF PAY NO INSURANCE Member Subscriber Plan / Payer (Ef fective for All Dates) Name:Maria C Quinteros Member ID:Not on file Relation to Subscriber:Not on file Name:MARIA C QUINTEROS Subscriber ID:Not on file Address: [address] [place] [phone] Payer ID:Not on file Group ID:Not on file Type:Self Pay Address: [place], [place] Care Teams Sewage Screen Operator Relationship Specialty Start Date End Date Drew Rios, MOBILE HOME SERVICER-MAGNETIC TAPE COMPOSER OPERATOR [address] [place] [phone] PCP - General Nurse Practitioner Family 11/28/20
--- OUTSIDE RECORDS SUMMARY | 2025-04-13 14:23 | XMS_ITS | Data Portability ---
Author Organization [facility], Main Office Address [address] [place] [address] Assessment No assessment recorded. Plan of Treatment Reminders Order Date Submit Date Provider Last Modified By Organization Details Last Modified Time Details Appointments None recorded. Lab HbA1c (hemoglobi n A1c), blood 2024 025 llalor [facility], [address], [address], [place], [address], 5 10:55:33 CBC w/ auto diff 2024 025 llalor [facility], [address], [place], [address], 5 10:55:33 noninvasiv e colorectal cancer DNA + occult blood screening, QL, stool 2024 025 [email or web address] [facility] (Cologuard Orders Only), [address], [address], [place], [address], 5 08:54:01 CMP, serum or plasma 2024 025 llalor [facility], [address], [place], [address], 5 10:55:33 lipid panel, serum 2024 025 llalor [facility], [address], [place], [address], 5 10:55:33 TSH + free T4, serum 2024 025 llalor [facility], [address], [place], [address], 5 10:55:33 vitamin D, 25-hydroxy , total, serum 2024 025 llalor [facility], [address], [place], [address], 5 10:55:34 TSH, serum or plasma 2023 024 [email or web address] [facility] ([facility]), [address] [place], [address], 4 14:52:20 Referral neurologis t referral - Please call patient to schedule an appointmen t. 2023 024 KIANA Hernadnez MD, [address] [facility] , [address], [place], [address], 4 16:50:43 orthopedic surgeon referral - Please call patient to schedule an appointmen t 2023 024 [email or web address] Lev Crews MD, [address] [facility], [place], [address], 4 17:39:33 Procedures None recorded. Surgeries None recorded. Imaging MAMMO, screening, digital, bilateral - Please call patient to schedule. 2024 025 [facility], [address], [address], [place], [address], 5 12:21:45 US, neck, soft tissue 2023 024 [email or web address] [id number] [facility], [address], [place], [address], 4 08:44:19 polysomnog melissa, titration study - *please call pt to schedule* 2022 023 [email or web address] [facility], [address], [place], [address], 3 15:52:13 Medication Orders prednisone 20 mg tablet 2023 024 [email or web address] [facility] #[id number], [address], [place], [address], 5 08:47:28 Patient TargetsNo targets recorded. Patient InstructionsNo instructions recorded. Reason for Referral Orthopedic Surgeon Referral for Pain of right shoulder joint Please call patient to schedule an appointment Referring Physician: [facility], Encounter Date: 10/29/2023 Neurologist Referral for Mem ory impairment Please call patient to schedule an appointment. Referring Physician: [facility], Encounter Date: 10/29/2023 Results Created Date Observation Date Name Description Value Unit Range Abnormal Flag Note LastModifiedBy Organization Detail LastModifiedTime 07/16/20 22 07/16/2022 COLOG UARD cologuard result reportable negati ve negati ve NEGAT REUBEN TEST RESUL T. A negat reuben Colog uard resul t indic ates a low likel ihood that a color ectal cance r (CRC) or advan tiago adeno ma (stuart omato us polyp s with more advan tiago pre-m align ant featu res) is prese nt. The chanc e that a perso n with a negat reuben Colog uard test has a color ectal cance r is less than 1 in 1500 (nega tive predi ctive value >99.9 %) or has an advan tiago adeno ma is less than 5.3% (nega tive predi ctive value 94.7% ). These data are based on a prosp ectiv e cross -sect ional study of 10,00 0 indiv idual s at [facility] risk for color ectal cance r who were scree shameka with both Colog uard and colon oscop y. (Caleb Blanca et al, N Engl J Med 2014; 370(1 4):12 86-12 97) The lia l value (refe rence range ) for this assay is negat reuben. COLOG UARD RE-SC NICOLA CONTRERAS RECOM MENDA TION: Perio dic color ectal cance r scree riley is an impor tant part of preve ntive healt hcare for asymp tomat ic indiv idual s at [facility] risk for color ectal cance r. Follo wing a negat reuben Colog uard resul t, the Ameri can Cance r Socie ty and U.S. Multi -Soci ety Task Force scree riley guide lines recom mend a Colog uard re-sc reeestee ng inter martinez of 3 years . Refer ences : Ameri can Cance r Socie ty Guide line for Color ectal Cance r Scree riley: https ://guadalupe w.can cer.o rg/ca ncer/ colon -rect al-ca ncer/ detec tion- diagn osis- stagi ng/ac s-rec ommen datio ns.ht ml.; Artemio WILKES, Fermin alvarez CR, Khris cazares JK, Color ectal Cance r Scree riley: Recom menda tions for Physi cians and Patie nts from the U.S. Multi -Soci ety Task Force on Color ectal Cance r Scree riley , Am Yisel hu y 2017; 112:1 016-1 030. TEST DESCR IPTIO N: [place] site algor ithmi c meeta sis of stool DNA-b iomar kers with hemog lobin immun oassa y. Quant itati ve value s of indiv idual bioma rkers are not repor table and are not assoc iated with indiv idual bioma rker resul t refer ence range s. Colog uard is inten ded for color ectal cance r scree riley of adult s of eithe r sex, 45 years or older , who are at [facility]-ri sk for color ectal cance r (CRC) . Colog uard has been appro jacqueline for use by the U.S. FDA. The perfo rmanc e of Colog uard was estab lishe d in a cross secti onal study of [facility] (formerly [facility]3] sk adult s aged 50-84 . Colog uard perfo rmanc e in patie nts ages 45 to 49 years was estim ated by regina tim sis of near- age group s. Colon oscop ies perfo rmed for a posit reuben resul t may find as the most clini tam signi fican t lesio n: color ectal cance r [4.0% ], advan tiago adeno ma (incl uding sessi le hugo tawny polyp s great er than or equal to 1cm diame ter) [20%] or non- advan tiago adeno ma [31%] ; or no color ectal neopl martine [45%] . These estim ates are deriv ed from a prosp ectiv e cross -sect ional scree riley study of 0 indiv idual s at [facility] risk for color ectal cance r who were scree shameka with both Colog uard and colon oscop y. (Caleb Blanca et al, N Engl J Med 2014; 370(1 4):12 86-12 97.) Colog uard may produ ce a false negat reuben or false posit reuben resul t (no color ectal cance r or preca ncero us polyp prese nt at colon oscop y follo w up). A negat reuben Colog uard test resul t does not guara ntee the absen ce of CRC or advan tiago adeno ma (pre- cance r). The curre nt Colog uard scree riley inter martinez is every 3 years . (Amer ican Cance r Socie ty and U.S. Multi -Soci ety Task Force ). Colog uard perfo rmanc e data in a 0 patie nt pivot al study using colon oscop y as the refer ence metho d can be acces sed at the follo wing locat ion: www.e xactl abs.c om/re eyad . Addit ional descr iptio n of the Colog uard test proce ss, warni ngs and preca ution s can be found at www.c orsangela ben.c om. Not Available [facility] (Cologuard Orders Only) [address], [place], [address], 07/23/2022 01:55:31 07/16/20 22 07/15/2022 XR, hip, bilat eral No observ ation record ed. [id number] [address], [place], [address], 11/19/2022 20:03:33 07/16/20 22 07/16/2022 XR, hand No observ ation record ed. [id number] [place] [address], [place], [address], 11/19/2022 20:03:33 08/13/20 22 08/13/2022 MAMMO , scree riley, digit al, bilat eral No observ ation record ed. [id number] [address], [place], [address], 11/19/2022 20:03:33 11/13/19 23 11/13/2022 CT, abdom en + pelvi s, w/o contr ast No observ ation record ed. [id number] [address], [place], [address], 11/19/2022 20:03:33 05/04/20 23 04/30/2023 home sleep study No observ ation record ed. [email or web address] [facility] [address] [place], [address], 05/08/2023 09:00:07 06/29/20 23 06/02/2023 home sleep study No observ ation record ed. [email or web address] [address], [place], [address], 07/08/2023 17:22:37 11/10/19 24 11/10/2023 US, neck, soft tissu e No observ ation record ed. [email or web address] [address], [place], [address], 11/12/2023 07:40:43 11/24/19 24 11/24/2023 MRI, shoul ibis, w/wo contr ast No observ ation record ed. [email or web address] [address], [place], [address], 02/01/2024 12:04:18 11/26/19 24 11/26/2023 XR, shoul ibis No observ ation record ed. [address], [place], [address], 11/30/2023 11:09:39 12/10/19 24 12/10/2023 MRI, brain + brain stem, w/wo contr ast No observ ation record ed. [email or web address] [address] [facility], [place], [address], 03/15/2024 11:28:32 03/16/20 25 03/15/2025 XR, finge r(s) No observ ation record ed. [id number] [facility] [address], [place], [address], 03/16/2025 14:46:38 Result Notes None recorded. Problems Name Problem SNOMED Code Status Onset Date Resolution Date Notes Provider Name and Address Organization Details Recorded Time Sj gren's syndrome 34874381 Active 2020 Not Available [facility] 3 11:25:40 Hypertensi ve disorder 49330625 Active 2021 Not Available [facility] 3 11:25:40 Hyperglyce darci 84588012 Active 2021 Not Available [facility] 3 11:25:40 Obstructiv e sleep apnea syndrome 91368978 Active 2022 Not Available [facility] 3 11:25:40 Insomnia 209477651 Active 2022 Not Available [facility] 3 11:25:40 Sleep apnea 96403244 Active 2022 Not Available [facility] 3 11:25:40 Congestion of nasal sinus 76329266 Active 2023 GARO Del Valle [address], [address], [place], [address] , [employer] 4 15:00:09 Memory impairment 929713268 Active 2023 GARO Del Valle [address], [address], [place], [address] , [employer] 4 14:14:23 Pain of right shoulder joint 8494410394054 9100 Active 2023 GARO Del Valle [address], [address], [place], [address] , [employer] 4 14:14:28 Mass of neck 490088440 Active 2023 GARO Del Valle [address], [address], [place], [address] , [employer] 4 14:18:19 Lipoma of skin 108813510 Active 2023 Jena Beach MD [address], [address], [place], [address] , [employer] 4 09:58:33 Body mass index 40+ - severely obese 650039496 Active 2024 GARO Blood [address], [address], [place], [address] , [employer] 5 09:14:07 Notes:[facility] home sleep study 04/30/23 AHI = 61, supine AHI = 69 Medical History: Rhinitis Sjogren's syndrome Obesity with very severe OSAHS, AHI = 60, 04/30/23 Hypertension Problem Notes None recorded. Medical Equipment None Reported. Allergies Allergen ID Allergen Name Allergen Category Reaction Reaction Severity Criticality Documentation Date Start Date Code Code System Note Provider Name and Address Organization Details Recorded Time 85515 methotrex ate medicatio n photosens itivity severe Not available 11/19/2022 6851 RxNorm Not Available [facility] 20:03:29 Medications Name Sig Start Date Stop Date Status Note LastModified by Organization Details LastModified Time id now influenza a & b 2 test kit TEST DIRECTED TODAY 03/20 completed Not Available Not Available Not Available fluconazole 100 mg tablet TAKE 1 TABLET BY MOUTH EVERY DAY DIRECTED FOR 7 DAYS 06/27 completed Not Available Not Available Not Available prednisone 10 mg tablet TAKE 2 TABLETS BY MOUTH ONCE DAILY X3 DAYS, THEN 1 TABLET ONCE DAILY X4 DAYS. 03/20 completed Not Available Not Available Not Available sulfasalazi ne 500 mg tablet TAKE 1 TABLET BY MOUTH TWICE DAILY 06/27 completed Not Available Not Available Not Available clindamycin HCl 300 mg capsule TAKE 1 CAPSULE BY MOUTH THREE TIMES DAILY. STOP IF DIARRHEA OCCURS 06/27 completed Not Available Not Available Not Available cetirizine 10 mg tablet TAKE 1 TABLET BY MOUTH DAILY NEEDED FOR ALLERGY SYMPTOMS active Not Available Not Available No t Available azithromyci n 250 mg tablet 03/20 completed Not Available Not Available Not Available tizanidine 4 mg tablet Take 1 tablet every 6 hours by oral route as needed for 10 days. active Not Available Not Available No t Available benzonatate 200 mg capsule 03/20 completed Not Available Not Available Not Available hydrocodone 5 mg-acetamin ophen 325 mg tablet TAKE 1 OR 2 TABLETS BY MOUTH EVERY 4 TO 6 HOURS NEEDED FOR PAIN 03/20 completed Not Available Not Available Not Available lisinopril 20 mg tablet TAKE 1 TABLET BY MOUTH EVERY DAY active Not Available Not Available No t Available ondansetron HCl 4 mg tablet TAKE 1 TABLET BY MOUTH EVERY 8 HOURS NEEDED FOR NAUSEA/VO MITING 03/20 completed Not Available Not Available Not Available prednisone 20 mg tablet TAKE 2 TABLETS BY MOUTH EVERY DAY FOR 5 DAYS 03/20 completed Not Available Not Available Not Available rizatriptan 10 mg tablet TAKE 1 TAB BY MOUTH NEEDED FOR MIGRAINE MAY REPEAT IN 2 HOURS IF UNRESOLVE D. MAX 3 TABS/24 HRS active Not Available Not Available No t Available propranolol ER 60 mg capsule,24 hr,extended release TAKE 1 CAPSULE BY MOUTH EVERY DAY 03/20 completed Not Available Not Available Not Available sumatriptan 50 mg tablet TAKE 1 TABLET BY MOUTH ONCE NEEDED FOR MIGRAINE. MAY REPEAT ONE TIME AFTER 2 HOURS IF NEEDED. 03/20 completed Not Available Not Available Not Available azathioprin e 50 mg tablet TAKE 1 TABLET BY MOUTH EVERY DAY 06/27 completed Not Available Not Available Not Available triamcinolo ne acetonide 0.1 % topical cream APPLY TO AFFECTED AREA TWICE A DAY active Not Available Not Available No t Available prednisone 10 mg tablets in a dose pack TK DIRECTED ON PACKAGE 06/27 completed Not Available Not Available Not Available meloxicam 7.5 mg tablet TAKE 1 TABLET BY MOUTH EVERY DAY active Not Available Not Available No t Available Microgestin FE 10/10 (28) 1 mg-20 mcg (21)/75 mg (7) tablet TK 1 T PO QD active Not Available Not Available No t Available estradiol 1 mg tablet TAKE 1 TABLET BY MOUTH DAILY 06/27 completed Not Available Not Available Not Available methotrexat e sodium 2.5 mg tablet TAKE 8 TABLETS BY MOUTH EVERY 7 DAYS active Not Available Not Available No t Available benzonatate 100 mg capsule TAKE 1 CAPSULE BY MOUTH 3 TIMES A DAY NEEDED 06/27 completed Not Available Not Available Not Available cephalexin 500 mg capsule 03/20 completed Not Available Not Available Not Available clotrimazol e-betametha sone 1 %-0.05 % topical cream APPLY 1 APPLICATI ON BY TOPICAL ROUTE TWICE A DAY DIRECTED FOR 14 DAYS active Not Available Not Available No t Available propranolol ER 80 mg capsule,24 hr,extended release TAKE 1 CAPSULE BY MOUTH EVERY DAY active Not Available Not Available No t Available diclofenac sodium 75 mg tablet,ravindra yed release TAKE 1 TABLET BY MOUTH TWICE DAILY active Not Available Not Available No t Available folic acid 1 mg tablet TAKE 2 TABLETS BY MOUTH ONCE DAILY 03/20 completed Not Available Not Available Not Available diclofenac sodium 50 mg tablet,ravindra yed release TAKE 1 TABLET BY MOUTH TWICE DAILY 02/08 completed Not Available Not Available Not Available clobetasol 0.05 % topical ointment APPLY A THIN LAYER TO THE AFFECTED AREA OF THE THIGHS 1 OR 2 TIMES DAILY NEEDED UNTIL THE RASH IMPROVES. active Not Available Not Available No t Available hydroxychlo roquine 200 mg tablet TAKE 2 TABLETS BY MOUTH EVERY DAY 06/27 completed Not Available Not Available Not Available albuterol sulfate HFA 90 mcg/actuati on aerosol inhaler INHALE 2 PUFFS BY MOUTH FOUR TIMES DAILY NEEDED FOR WHEEZING OR SHORTNESS OF BREATH active Not Available Not Available No t Available ondansetron 4 mg disintegrat ing tablet DISSOLVE 1 TABLET ON THE TONGUE FOUR TIMES A DAY NEEDED FOR 3 DAYS 03/20 completed Not Available Not Available Not Available clotrimazol e 1 % topical cream APPLY TO RASH BID 10/24 completed Not Available Not Available Not Available betamethaso ne dipropionat e 0.05 % lotion APPLY A FEW DROPS ONTO AFFECTED AREA(S) TWICE DAILY (MORNING/ BEDTIME) RUB IN GENTLY AND COMPLETEL Y active Not Available Not Available No t Available Sudafed 30 mg tablet Take 2 tablets every 4-6 hours by oral route as needed. 2023 active Not Available Not Available Not Avai lable amoxicillin 875 mg-potassiu m clavulanate 125 mg tablet TAKE 1 TABLET BY MOUTH TWICE A DAY 06/27 completed Not Available Not Available Not Available cyclobenzap rine 5 mg tablet TAKE 1 TABLET BY MOUTH NIGHTLY NEEDED active Not Available Not Available No t Available Enbrel SureClick 50 mg/mL (1 mL) subcutaneou s pen injector 03/20 completed Not Available Not Available Not Available Cimzia 400 mg/2 mL (200 mg/mL x 2) subcutaneou s syringe kit Inject 2 mL every 4 weeks by subcutane ous route. active Not Available Not Available No t Available Otezla Starter 10 mg (4)-20 mg (4)-30 mg(47) tablets in a dose pack 06/27 completed Not Available Not Available Not Available Taltz Autoinjecto r 80 mg/mL subcutaneou s 03/20 completed Not Available Not Available Not Available Norlyda 0.35 mg tablet TK 1 T PO QD 03/20 completed Not Available Not Available Not Available Humira(CF) Pen 40 mg/0.4 mL subcutaneou s kit 03/20 completed Not Available Not Available Not Available ID NOW COVID-19 Test Kit TEST DIRECTED TODAY 03/20 completed Not Available Not Available Not Available COVID-19 test specimen collection TEST DIRECTED TODAY 03/20 completed Not Available Not Available Not Available Vitals Date Recorded Body height Body mass index (BMI) Body weight Body temperature Heart rate Oxygen saturation Oxygen saturation in Arterial blood by Pulse oximetry Systolic And Diastolic Provider Name and Address Organization Details Last Updated DateTime 4 146.05 cm 38.9 kg/m2 20588.4 g 97.7 [degF] 68 /min 99 % 99 % 134/80 mm[Hg] Madeleine Hargrove RN [facility] 4 14:07:55 Date Recorded Body mass index (BMI) Body height Oxygen saturation Oxygen saturation in Arterial blood by Pulse oximetry Heart rate Body temperature Body weight Systolic And Diastolic Provider Name and Address Organization Details Last Updated DateTime 3 38.2 kg/m2 147.32 cm 100 % 100 % 84 /min 97.8 [degF] 65502.4 g 126/82 mm[Hg] Not Available [facility] 3 20:02:01 Date Recorded Body weight Body mass index (BMI) Body height Heart rate Oxygen saturation Oxygen saturation in Arterial blood by Pulse oximetry Respiratory rate Body temperature Systolic And Diastolic Provider Name and Address Organization Details Last Updated DateTime 5 11105.7 4 g 40.8 kg/m2 146.05 cm 70 /min 98 % 98 % 18 /min 97.7 [degF] 120/70 mm[Hg] Zeenat Marley [place] [facility] [facility] 5 08:38:12 Date Recorded Body height Body mass index (BMI) Body weight Body temperature Heart rate Oxygen saturation Oxygen saturation in Arterial blood by Pulse oximetry Systolic And Diastolic Provider Name and Address Organization Details Last Updated DateTime 3 147.32 cm 38 kg/m2 44810.8 1 g 96.9 [degF] 77 /min 96 % 96 % 169/98 mm[Hg] Smita White MA [facility] 3 08:09:15 Date Recorded Body mass index (BMI) Body height Oxygen saturation Oxygen saturation in Arterial blood by Pulse oximetry Heart rate Body temperature Body weight Systolic And Diastolic Provider Name and Address Organization Details Last Updated DateTime 2 38 kg/m2 147.32 cm 98 % 98 % 68 /min 96.5 [degF] 74953.8 1 g 169/111 mm[Hg] Not Available [facility] 20:02:01 Social History Question Answer Notes LastModified by Organizat ion Details LastModified Time Tobacco Smoking Status Former Smoker quit 3 yrs ago Not Available [facility] 11/19/2022 20:01:33 What Is Your Level Of Caffeine Consumption? Moderate [id number] Information not available 11/19/2022 How Much Tobacco Do You Chew? None [id number] Information not available 11/19/2022 In The 14 Days Before Symptom Onset, Have You Had Close Contact With A Laboratory-confir med COVID-19 While That Case Was Ill? No [id number] Information not available 11/19/2022 In The 14 Days Before Symptom Onset, Have You Had Close Contact With A Person Who Is Under Investigation For COVID-19 While That Person Was Ill? No [id number] Information not available 11/19/2022 What Type Of Diet Are You Following? REGULAR [id number] Information not available 11/19/2022 Which Illicit Or Recreational Drugs Have You Used? None [id number] Information not available 11/19/2022 Are There Any Guns Present In Your Home? No [id number] Information not available 11/19/2022 Have You Ever Been Counseled For Unhealthy Alcohol Use? No [id number] Information not available 11/19/2022 At What Age Did You Start Smoking Tobacco? 4 [id number] Information not available 11/19/2022 How Much Tobacco Do You Smoke? 0.5 PPD [id number] Information not available 11/19/2022 Do You Use Sunscreen Routinely? Yes [id number] Information not available 11/19/2022 Has Tobacco Cessation Counseling Been Provided? No [id number] Information not available 11/19/2022 Have You Recently Traveled Abroad? No [id number] Information not available 11/19/2022 Sex: Unknown Functional Status Question Answer Note LastModified by Organizat ion Details LastModified Time Do you or have you ever used any other forms of tobacco or nicotine? No [id number] Information not available 11/19/2022 What is your level of alcohol consumption? Occasional [id number] Information not available 11/19/2022 Do you or have you ever used smokeless tobacco? 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 Never used electronic cigarettes [id number] Information not available 11/19/2022 What is your exercise level? Occasional [id number] Information not available 11/19/2022 Mental Status None recorded. Family History Relationship Description Onset Age of this Age Resolved Age Notes LastModified by Organization Details LastModified Time Mother Type 2 diabetes mellitus 45 [email or web address] Not available 2022 08:10:37 Mother Malignant tumor of cervix 70 [email or web address] Not available 2022 08:11:42 Father Hypertensive disorder 65 [email or web address] Not available 2022 08:12:13 Father Acute stroke 75 [email or web address] Not availa ble 04/28/2023 08:12:41 Medical History No medical history recorded. Gynecological HistoryNo gynecological history recorded. Obstetrics History GPAL:G 0 P 0 0 0 0 Immunizations Vaccine Type Date Status Note Provider Nam e and Address Organization Details Recorded Time SARS-COV-2 (COVID-19) vaccine, UNSPECIFIED 1 completed Aparna Bishop APRN [address], [place], [address], [employer] 05/31/2024 12:07:39 SARS-COV-2 (COVID-19) vaccine, UNSPECIFIED 0 completed Not Available [facility] 11/19/2022 20:03:28 zoster recombinant 3 completed Aparna Bishop APRN [address], [address], [place], [address], [employer] 05/31/2024 12:07:51 zoster recombinant 3 completed Aparna Bishop APRN [address], [address], [place], [address], [employer] 05/31/2024 12:07:27 Tdap 6 completed Aparna Bishop APRN [address], [address], [place], [address], [facility] 05/31/2024 12:07:27 Tdap 3 completed Aparna Bishop APRN [address], [address], [place], [address], [facility] 05/31/2024 12:07:27 Tdap 2 completed Aparna Bishop APRN [address], [address], [place], [address], [facility] 05/31/2024 12:07:27 Influenza, split virus, trivalent, preservative 1 completed Aparna Bishop APRN [address], [place], [address], [facility] 05/31/2024 12:07:27 COVID-19, mRNA, LNP-S, PF, 30 mcg/0.3 mL dose 1 completed Aparna Bishop APRN [address], [place], [address], [facility] [facility] 05/31/2024 12:07:39 COVID-19, mRNA, LNP-S, PF, 30 mcg/0.3 mL dose 0 completed Aparna Bishop APRN [address], [address], [place], [address], [facility] 05/31/2024 12:07:39 Past Encounters Encounter ID Performer Location Encounter Start Date Encounter Closed Date Diagnosis/Indication Diagnosis SNOMED-CT Code Diagnosis ICD10 Code Diagnosis Note [id number] TORI Abarca [facility] [facility] [address] [place] [address] 02/08/2021 00:00:00 02/08/2021 13:21:03 [id number] Jena Beach MD [facility] Primary [facility] [place] [address] [place] [address] 10/01/2021 00:00:00 10/01/2021 20:01:46 [id number] TORI Abarca [facility] Primary [facility] [place] [address] [place] [address] 06/24/2022 00:00:00 06/24/2022 19:43:10 [id number] Jena Beach MD [facility] Primary [facility] [place] [address] [place] [address] 06/27/2022 00:00:00 06/27/2022 08:56:15 [id number] Jena Beach MD [facility] Primary [facility] [place] [address] [place] [address] 07/18/2022 00:00:00 07/18/2022 12:07:59 [id number] Jena Beach MD [facility] Primary [facility] [place] [address] [place] [address] 11/13/2022 00:00:00 11/13/2022 09:06:41 [id number] GARO Del Valle [facility] Primary [facility] [place] [address] [place] [address] 04/28/2023 07:59:41 04/28/2023 08:31:37 Obstructive sleep apnea syndrome 90489621 G47.33 Feels tired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
--- OUTSIDE RECORDS SUMMARY | 2025-04-13 14:23 | XMS_ITS | Data Portability ---
Author Organization [facility] Address [address] [place] [address] [place] [address] Assessment No assessment recorded. Plan of Treatment Reminders Order Date Submit Date Provider Last Modified By Organization Details Last Modified Time Details Appointments None recorded. Lab urinalysis, dipstick 2024 025 [email or web address] [facility], [address], [place], [address], 5 10:44:48 culture, urine [address] (Lab), [address], [place], [address], 5 10:54:02 herpes simplex, culture, unspecified specimen [address] (Lab), [address], [place], [address], 5 10:54:02 unlisted lab - women's health swab, ROSALES 2024 025 [facility] (Lab), [address], [place], [address], 5 10:54:42 Referral None recorded. Procedures None recorded. Surgeries total hysterectom y, laparoscopi c, with bilateral salpingo-oo phorectomy (SURG) 2019 020 [facility], [address], [place], [address], 0 13:28:17 Imaging None recorded. Medication Orders nystatin-tr iamcinolone 100,000 unit/g-0.1 % topical cream 2024 025 [facility] #[id number], [address], [place], [address], 5 11:47:09 Danii 0.35 mg tablet 2019 020 [email or web address] [facility] #[id number], [address], [place], [place], [id number], 5 10:14:16 Patient TargetsNo targets recorded. Patient InstructionsNo instructions recorded. Reason for Referral None Reported. Results Created Date Observation Date Name Description Value Unit Range Abnormal Flag Note LastModifiedBy Organization Detail LastModifiedTime 04/11/2004/11/2025 urina lysis , dipst ick Leukocytes ++ Not Available [facility] Laniervicki laughlin [address], [place], [address], 04/11/2025 10:40:49 04/11/20 25 04/11/2025 urina lysis , dipst ick Nitrite - Not Available [facility] [address], [place], [address], 04/11/2025 10:40:49 04/11/20 25 04/11/2025 urina lysis , dipst ick Urobilinogen - Not Available Igor golden [address], [place], [address], 04/11/2025 10:40:49 04/11/20 25 04/11/2025 urina lysis , dipst ick Protein trace Not Available [facility] [address], [place], [address], 04/11/2025 10:40:49 04/11/20 25 04/11/2025 urina lysis , dipst ick pH 5 Not Available [facility] [address], [place], [address], 04/11/2025 10:40:49 04/11/20 25 04/11/2025 urina lysis , dipst ick Blood +++ Not Available [facility] [address], [place], [address], 04/11/2025 10:40:49 04/11/20 25 04/11/2025 urina lysis , dipst ick Specific Gomer 1.010 Not Available [facility] Laniercameron petersen [address], [place], [address], 04/11/2025 10:40:49 04/11/20 25 04/11/2025 urina lysis , dipst ick Ketone - Not Available [facility] [address], [place], [address], 04/11/2025 10:40:49 04/11/20 25 04/11/2025 urina lysis , dipst ick Bilirubin - Not Available [facility] Lanierpool garay [address], [place], [address], 04/11/2025 10:40:49 04/11/20 25 04/11/2025 urina lysis , dipst ick Glucose - Not Available [facility] [address], [place], [address], 04/11/2025 10:40:49 04/11/20 25 04/11/2025 urina lysis , dipst ick Appearance clear Not Available Ahsan laughlin [address], [place], [address], 04/11/2025 10:40:49 04/11/20 25 04/11/2025 urina lysis , dipst ick Color light yellow Not Available [facility] [address], [place], [address], 04/11/2025 10:40:49 Result Notes None recorded. Problems Name Problem SNOMED Code Status Onset Date Resolution Date Notes Provider Name and Address Organization Details Recorded Time Specializ ed medical examinati on Active 2012 Gynecologi yakelin Examinatio n;Recorded Elsewhere: No Locatio n: [facility] rce: EHR Chroni c: N Practice ID: 0001 Billa ble Time: 04:30:00 PM Not Available [facility] 0 17:02:02 Screening for malignant neoplasm of cervix Active 2012 Screening for malignant neoplasms of the cervix;Rec orded Elsewhere: No Locatio n: [facility] rce: EHR Chroni c: N Practice ID: 0001 Billa ble Time: 04:30:00 PM Not Available [facility] 0 17:02:02 Abdominal pain 83437842 Active 2012 Abdominal Pain;Recor ded Elsewhere: No Locatio n: [facility] rce: EHR Chroni c: N Practice ID: 0001 Billa ble Time: 08:15:00 AM Not Available [facility] 0 17:02:01 Menstruat ion finding Active 2012 Excessive or frequent menstruati on;Recorde d Elsewhere: No Locatio n: [facility] rce: EHR Chroni c: N Practice ID: 0001 Billa ble Time: 03:30:00 PM Not Available [facility] 0 17:02:01 test negative 183415116 Active 2012 examinatio n or test, negative result;Rec orded Elsewhere: No Locatio n: [facility] rce: EHR Chroni c: N Practice ID: 0001 Billa ble Time: 03:30:00 PM Not Available [facility] 0 17:02:01 Vaginitis and vulvovagi nitis Active 2013 Vaginitis; Recorded Elsewhere: No Locatio n: [facility] rce: EHR Chroni c: N Practice ID: 0001 Billa ble Time: 03:15:00 PM Not Available [facility] 0 17:02:01 Microscop ic hematuria 856456172 Active 2013 MICROSCOPI C HEMATURIA; Recorded Elsewhere: No Locatio n: [facility] rce: EHR Chroni c: N Practice ID: 0001 Billa ble Time: 03:15:00 PM Not Available [facility] 0 17:02:01 Finding of regularit y of menstrual cycle Active 2018 Irregular menstruati on, unspecifie d;Recorded Elsewhere: No Locatio n: [facility] rce: EHR Chroni c: N Practice ID: 0001 Billa ble Time: 02:30:00 PM Not Available [facility] 0 17:02:01 Hypertrop hy of uterus 820962165 Active 2018 Hypertroph y of uterus;Rec orded Elsewhere: No Locatio n: [facility] rce: EHR Chroni c: N Practice ID: 0001 Billa ble Time: 02:30:00 PM Not Available [facility] 0 17:02:02 Bleeding 174434892 Active 2018 Abnormal uterine and vaginal bleeding, unspecifie d;Recorded Elsewhere: No Locatio n: [facility] rce: EHR Chroni c: N Practice ID: 0001 Billa ble Time: 04:15:00 PM Not Available [facility] 0 17:02:01 Pelvic and perineal pain 398088739 Active 2019 Pelvic and perineal pain;Recor ded Elsewhere: No Locatio n: [facility] rce: EHR Chroni c: N Practice ID: 0001 Billa ble Time: 09:30:00 AM Not Available [facility] 0 17:02:01 Procedure on genitouri nary system Active 2019 Encounter for surgical aftercare following surgery on the genitourin addie system;Rec orded Elsewhere: No Locatio n: [facility] rce: EHR Chroni c: N Practice ID: 0001 Billa ble Time: 08:30:00 AM Not Available [facility] 0 17:02:01 Postopera tive care Active 2019 Encounter for surgical aftercare following surgery on the genitourin addie system;Rec orded Elsewhere: No Locatio n: [facility] rce: EHR Chroni c: N Practice ID: 0001 Palma ble Time: 08:30:00 AM Not Available [facility] 0 17:02:01 Problem Notes None recorded. Procedures Surgical History Date Name Laterality Status Provider Name and Address Organization Details Recorded Time 04/02/20 20 TOTAL HYSTERECTOMY, LAPAROSCOPIC, WITH BILATERAL SALPINGO-OOPHORE CTOMY (SURG) completed [facility] 11/29/2020 18:01:28 07/22/20 19 Dilation and Curettage completed [facility] 03/20/2020 17:49:55 07/22/20 [address] [facility] 03/20/2020 17:50:17 04/21/[address] [facility] 03/20/2020 17:48:24 04/21/[address] [facility] 03/20/2020 17:48:11 04/21/[address] [facility] 03/20/2020 17:48:32 Imaging Results None recorded. Procedure Notes None recorded. Medical Equipment None Reported. Medications Name Sig Start Date Stop Date Status Note LastModified by Organization Details LastModified Time cyclobenz aprine 10 mg tablet TAKE 1 TABLET BY MOUTH TWICE DAILY NEEDED active Not Available Not Available No t Available cetirizin e 10 mg tablet TAKE 1 TABLET BY MOUTH DAILY NEEDED FOR ALLERGY SYMPTOMS active Not Available Not Available No t Available azithromy hernan 250 mg tablet TAKE 2 TABLETS BY MOUTH TODAY, THEN TAKE 1 TABLET DAILY FOR 4 DAYS DIRECTED 04/08 completed Not Available Not Available Not Available benzonata te 200 mg capsule TAKE 1 CAPSULE BY MOUTH THREE TIMES A DAY FOR 7 DAYS 04/11 completed Not Available Not Available Not Available Lotrisone 1 %-0.05 % topical cream apply by topical route 2 times every day for 2 weeks to the affected and surround ing areas of skin in the morning and evening 11/01 completed Prescrib ed Elsewher e: No Locat ion: Zulema [facility] Latoya urias By: sam krishna DateTime : 10/19/19 14 03:15:00 PM Not Available Not Available Not Available hydrocodo ne 5 mg-acetam inophen 325 mg tablet 04/11 completed Not Available Not Available Not Available lisinopri l 20 mg tablet TAKE 1 TABLET BY MOUTH EVERY DAY active Not Available Not Available No t Available ondansetr on HCl 4 mg tablet TAKE 1 TABLET BY MOUTH EVERY 8 HOURS NEEDED FOR NAUSEA/V OMITING 04/11 completed Not Available Not Available Not Available prednison e 20 mg tablet TAKE 2 TABS BY MOUTH DAILY FOR 5 DAYS 04/11 completed Not Available Not Available Not Available rizatript an 10 mg tablet TAKE 1 TAB BY MOUTH NEEDED FOR MIGRAINE MAY REPEAT IN 2 HOURS IF UNRESOLV ED. MAX 3 TABS/24 HRS active Not Available Not Available No t Available propranol ol ER 60 mg capsule,2 4 hr,extend ed release TAKE 1 CAPSULE BY MOUTH EVERY DAY 04/11 completed Not Available Not Available Not Available sumatript an 50 mg tablet TAKE 1 TABLET BY MOUTH ONCE NEEDED FOR MIGRAINE . MAY REPEAT ONE TIME AFTER 2 HOURS IF NEEDED. 04/11 completed Not Available Not Available Not Available prednison e 10 mg tablets in a dose pack 04/11 completed Not Available Not Available Not Available meloxicam 7.5 mg tablet TAKE 1 TABLET BY MOUTH EVERY DAY active Not Available Not Available No t Available Microgest in FE 10/10 (28) 1 mg-20 mcg (21)/75 mg (7) tablet TAKE 1 TABLET BY MOUTH EVERY DAY 04/11 completed Not Available Not Available Not Available estradiol 1 mg tablet TAKE 1 TABLET BY MOUTH DAILY 04/11 completed Not Available Not Available Not Available methotrex ate sodium 2.5 mg tablet TAKE 8 TABLETS BY MOUTH EVERY 7 DAYS active Not Available Not Available No t Available propranol ol ER 80 mg capsule,2 4 hr,extend ed release TAKE 1 CAPSULE BY MOUTH EVERY DAY active Not Available Not Available No t Available nystatin- triamcino lone 100,000 unit/g-0. 1 % topical cream APPLY TO THE AFFECTED AREA(S) BY TOPICAL ROUTE 2 TIMES PER DAY IN THEMORNI NG AND EVENING 2024 active Not Available Not Available Not Avai lable folic acid 1 mg tablet TAKE 2 TABLETS BY MOUTH ONCE DAILY active Not Available Not Available No t Available albuterol sulfate HFA 90 mcg/actua tion aerosol inhaler INHALE 2 PUFFS EVERY 4-6 HOURS NEEDED FOR SHORTNES S OF BREATH OR WHEEZE FOR 30 DAYS active Not Available Not Available No t Available ondansetr on 4 mg disintegr ating tablet 04/11 completed Not Available Not Available Not Available betametha sone dipropion ate 0.05 % lotion APPLY A FEW DROPS ONTO AFFECTED AREA(S) TWICE DAILY (MORNING /BEDTIME ) RUB IN GENTLY AND COMPLETE LY active Not Available Not Available No t Available amoxicill in 875 mg-potass ium clavulana te 125 mg tablet 04/11 completed Not Available Not Available Not Available nabumeton e 500 mg tablet take 1 tablet by oral route 2 times every day prn with food max of 7 days 10/28 completed Prescrib ed Elsewher e: No [facility] By: gricelda cervantes DateTime : 10/22/19 08:30:00 AM Not Available Not Available Not Available cyclobenz aprine 5 mg tablet TAKE 1 TABLET BY MOUTH NIGHTLY NEEDED active Not Available Not Available No t Available Cimzia 400 mg/2 mL (200 mg/mL x 2) subcutane ous syringe kit active Not Available Not Available Not Available Taytulla 1 mg-20 mcg (24)/75 mg (4) capsule take 1 capsule by oral route every day at the same time each day 10/22 completed Prescrib ed Elsewher e: No Locat ion: [facility]ify By: amber wilson DateTime : 08/01/20 19 04:00:00 PM Not Available Not Available Not Available Norlyda 0.35 mg tablet Take 1 tablet every day by oral route. 04/11 completed Not Available Not Available Not Available Vitals Date Recorded Body height Body mass index (BMI) Body weight Systolic And Diastolic Systolic And Diastolic Provider Name and Address Organization Details Last Updated DateTime 03/20/2020 149.86 cm 35.5 kg/m2 63103.26 g 146/90 mm[Hg] 140/90 mm[Hg] Zeenat Barrett [facility] 0 17:40:39 Date Recorded Body height Body mass index (BMI) Body weight Systolic And Diastolic Provider Name and Address Organization Details Last Updated DateTime 04/11/2025 144.78 cm 41.1 kg/m2 83603.55 g 153/100 mm[Hg] Martha Quiros [facility] 04/11/2025 10:13:21 Date Recorded Body height Body mass index (BMI) Body weight Systolic And Diastolic Provider Name and Address Organization Details Last Updated DateTime 04/13/2020 149.86 cm 34.7 kg/m2 55790.89 g 136/84 mm[Hg] Zeenat Barrett [facility] 04/13/2020 15:45:06 Social History Question Answer Notes LastModified by Organizat ion Details LastModified Time Tobacco Smoking Status Former Smoker Zeenat Barrett [facility] 03/20/2020 17:44:46 Do You Have An Advance Directive? No [email or web address] Information n ot available 04/11/2025 Are You Blind Or Do You Have Difficulty Seeing? Yes [email or web address] Information n ot available 04/11/2025 What Is Your Level Of Caffeine Consumption? Heavy [email or web address] Information not available 04/11/2025 How Much Tobacco Do You Chew? None [email or web address] Information not available 04/11/2025 In The 14 Days Before Symptom Onset, Have You Had Close Contact With A Laboratory-confirm ed COVID-19 While That Case Was Ill? No [email or web address] Information n ot available 04/11/2025 In The 14 Days Before Symptom Onset, Have You Had Close Contact With A Person Who Is Under Investigation For COVID-19 While That Person Was Ill? No Information not available 04/11/2025 Have You Been To An Area Known To Be High Risk For COVID-19? No [email or web address] Information not available 04/11/2025 Are You Deaf Or Do You Have Serious Difficulty Hearing? No [email or web address] Information not available 04/11/2025 What Type Of Diet Are You Following? REGULAR [email or web address] Information n ot available 04/11/2025 What Is The Highest Grade Or Level Of School You Have Completed Or The Highest Degree You Have Received? AC41449-3 [email or web address] Information not available 04/11/2025 Are There Any Guns Present In Your Home? Yes [email or web address] Information not available 04/11/2025 Do You Use Protection During Sex? No Information not available 04/11/2025 Do You Use Your Seat Belt Or Car Seat Routinely? Yes [email or web address] Information not available 04/11/2025 Are You Sexually Active? No [email or web address] Information not available 04/11/2025 Do You Have Smoke And Carbon Monoxide Detectors In Your Home? Yes [email or web address] Information not available 04/11/2025 How Much Tobacco Do You Smoke? No Information not available 04/11/2025 Do You Use Sunscreen Routinely? Yes [email or web address] Information not available 04/11/2025 How Many Years Have You Smoked Tobacco? 5 [email or web address] Information not available 04/11/2025 Have You Used IV Drugs? No Information not available 04/11/2025 Do You Have Difficulty Walking Or Climbing Stairs? No Information not available 04/11/2025 Sex: Unknown Functional Status Question Answer Note LastModified by Organizat ion Details LastModified Time Do you use any illicit or recreational drugs? No [email or web address] Information not available 04/11/2025 What is your level of alcohol consumption? Occasional [email or web address] Information not available 04/11/2025 Are you currently employed? Yes [email or web address] Information not available 04/11/2025 Are you able to walk? YESWOREST [email or web address] Information not available 04/11/2025 Are you able to care for yourself? 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 No [email or web address] Information not available 04/11/2025 What is your exercise level? None [email or web address] Information not available 04/11/2025 Mental Status Question Answer Note LastModified by Organization D etails LastModified Time Do you feel stressed (tense, restless, nervous, or anxious, or unable to sleep at night)? [id number] [email or web address] Information not available 04/11/2025 Family History Relationship Description Onset Age of this Age Resolved Age Notes LastModified by Organization Details LastModified Time Mother Diabetes mellitus [email or web address] Not available 2019 17:45:08 Mother Heart failure [email or web address] Not available 2024 10:18:23 Mother Malignant neoplasm of ovary [email or web address] Not available 2024 10:18:38 Sister Endometriosi s (clinical) [email or web address] Not available 0 04/11/2025 10:03:17 Maternal Aunt Disorder of thyroid gland [email or web address] Not available 2019 17:46:10 Father Hypertensive disorder [email or web address] Not available 2024 10:19:04 Father Kidney disease [email or web address] Not available 2024 10:19:11 Medical History Condition Response Anemia Y Gynecological History Statement/Question Response Date of Last Mammogram On BCP's at Conception? N N STIs/STDs N Was last menstrual period normal N HPV Vaccine N Current Control Method None Age at First Child 17 If Post Menopausal, Age at Menopause 45 Date of Last Colonoscopy Sexually Active? N Age of first menstrual cycle 11 Date of Last Pap Smear Sexual Problems? N LMP Unknown N Obstetrics History GPAL:G 3 P 3 0 0 3 Type Value Full Term 3 Living 3 Total 3 Past Encounters Encounter ID Performer Location Encounter Start Date Encounter Closed Date Diagnosis/Indication Diagnosis SNOMED-CT Code Diagnosis ICD10 Code Diagnosis Note [id number] Milton Peña MD [facility] [address] [address] 03/20/2020 17:20:38 03/21/2020 15:03:10 Abnormal uterine bleeding [id number] 9100 N93.9 This patient is a 45-year-ol d female with longstandi ng abnormal uterine bleeding, dysmenorrh ea,menorrh agia. She has had pelvic pain that has required surgery.Sh e was treated andfailedl ow dose ocp's.She continues to suffer fromabnorm al uterine bleeding, dysmenorrh ea, and menorrhagi a.We spoke for over 25 minutes. More than 50% of this was counseling .After considerin g all her medical treatment optionsand having failedprev ious surgical procedure, we have agreed to proceed with totallapar oscopic hysterecto my and bilateral salpingo-o ophorectom y.I described the procedure to the patient and great detail.We have agreed to move forward with the procedure. Menorrhagia 981816712 N9 2.0 Dysmenorrhea 769366949 N 94.6 [id number] Milton Peña MD [facility] [address] [address] 04/13/2020 15:31:45 04/14/2020 13:38:46 Postoperative care 917589698 Z48.89 This patient is a28-sjlf-a ld female who isone-week postop from a total laparoscop ic hysterecto my. She is recovering normally. Her incisions are clean dry and intact.Fol low-up as needed [id number] Milton Peña MD [facility] [address] [address] 04/11/2025 10:02:02 04/11/2025 12:37:41 Chronic vaginitis 50910867 N76.1 Reviewed the various causes of vaginal discharge and vaginitis symptoms, including both infectious (STD's, BV, yeast, others) and non-infect ious (physiolog ic d/c, irritants/ allergens, DIV, others) causes. Reviewed good vulvar/vag inal hygiene and ways to reduce symptoms.R x sent for nystatin-t riamcinolo ne topical ointment to apply BID to affected area to relieve irritation .Vaginitis panel sent to r/o BV/yeast/t richHSV culture sent to r/o viral cause of area of excoriatio n and vaginal vesicles at vaginal introitus. Discussed vaginal estrogen to help restore outermost layer of vaginal cells. Patient to consider. Urinary sy stem finding [id number] R39.9 Health Concerns Section Related Observation LastModified by Organization Detai ls LastModified Time None Recorded Concern Status LastModified by Organization Details LastModified Time None Recorded Advance Directives Directive N: Payers Insurance Date Sequence Insurance Name Policy Number Policy Guevara Covered Member ID Guevara Member ID Guarantor Name 04/12/2025 1 [employer] ([facility]) [id number] Elizabeth Reich [id number] Elizabeth Reich 04/03/2025 1 [place] [id number] Elizabeth Reich [id number] Elizabeth Reich 04/03/2025 *SELF PAY* David brannon Reich Notes Date Note Type Note Provider Name and Address Organization Details Recorded Time 03/20/2020 text/html This patient is a 45-year-old female with longstanding abnormal uterine bleeding, dysmenorrhea, menorrhagia. She has had pelvic pain that has required surgery. She was treated and failed low dose ocp's. She continues to suffer from abnormal uterine bleeding, dysmenorrhea, and menorrhagia. We spoke for over 25 minutes. More than 50% of this was counseling. After considering all her medical treatment options and having failed previous surgical procedure, we have agreed to proceed with total laparoscopic hysterectomy and bilateral salpingo-oophorecto my. I described the procedure to the patient and great detail. We have agreed to move forward with the procedure. Milton Peña MD [address], [place], [address], [facility] 04/02/2020 08:24:12 04/13/2020 text/html This patient is a 45-year-old female who is one-week postop from a total laparoscopic hysterectomy. She is recovering normally. Her incisions are clean dry and intact. Follow-up as needed Milton Peña MD [address], [place], [address], [facility] 04/13/2020 22:15:29 04/11/2025 text/html 50 y/o female presents with c/o vaginal itching (x 2 years) and now feels pea-sized bumps at bottom of vaginal opening that are tender to the touch. Denies known triggers. Notices burning after urination.Patient denies known vaginal discharge, odor. Patient reports that she feels more moist than usual with clear fluid.Hx total hysterectomy, bilateral salpingectomy in 2019.Denies new sexual partners; in monogamous with relationship with . VILLA CLEARY, [employer] [address], [place], [address], [facility] 04/11/2025 12:37:36 OBGyn Episode Ob Episode Information Episode Created Date Number of Fetuses Patient Bloodtype Patient rh Status Prepregnancy Weight lbs Domestic Partner Domestic Partner Phone Father Name Reimbursement Consultant Status 03/20/20 20 1 CLOSED Fetus Data First Name Last Name Admitted to NICU Weight (g) Sex Living Outcome Pediatric Complications Fetus ID Race Codes Race Delivery Type 3118.44 5 M Full Term [id number] Primary Weston Calculation Initial Weston Date Initial Exam Date Initial Exam Provider Initial Ultrasound Date Last Menstrual Period Date Ultra Sound Weeks Gestation 0 Eighteen To Twenty Week Weston Update Ultra Sound Date Fundal Height At Umbil Quickening Date Ultra Sound Latest Weeks Gestation Final Weston Confirmed By Final Weston Confirmed Date Final Weston Date Ultra Sound Latest Days Gestation 0 0 Menstrual History Last Menstrual Date Menses Monthly On Bcp Conception Prior Menses Frequency Hcg Plus Date Menarche Onset Age Delivery Information Delivery Date Delivery Type Labor Anesthesia Weeks Gestation Incision Type Labor Labor Length Hrs Delivered By Post Complications Tubal Sterilization Discharge Date Comments 9 40 Get Discharge Information Feeding Method Contraceptive Method Maternal HG B and HCT Levels Ob Episode Information Episode Created Date Number of Fetuses Patient Bloodtype Patient rh Status Prepregnancy Weight lbs Domestic Partner Domestic Partner Phone Father Name Reimbursement Consultant Status 03/20/20 20 1 CLOSED Fetus Data First Name Last Name Admitted to NICU Weight (g) Sex Living Outcome Pediatric Complications Fetus ID Race Codes Race Delivery Type 3515.33 8 F Full Term 2659 Primary Weston Calculation Initial Weston Date Initial Exam Date Initial Exam Provider Initial Ultrasound Date Last Menstrual Period Date Ultra Sound Weeks Gestation 0 Eighteen To Twenty Week Weston Update Ultra Sound Date Fundal Height At Umbil Quickening Date Ultra Sound Latest Weeks Gestation Final Weston Confirmed By Final Weston Confirmed Date Final Ewston Date Ultra Sound Latest Days Gestation 0 0 Menstrual History Last Menstrual Date Menses Monthly On Bcp Conception Prior Menses Frequency Hcg Plus Date Menarche Onset Age Delivery Information Delivery Date Delivery Type Labor Anesthesia Weeks Gestation Incision Type Labor Labor Length Hrs Delivered By Post Complications Tubal Sterilization Discharge Date Comments 2 40 Sabina Discharge Information Feeding Method Contraceptive Method Maternal HG B and HCT Levels Ob Episode Information Episode Created Date Number of Fetuses Patient Bloodtype Patient rh Status Prepregnancy Weight lbs Domestic Partner Domestic Partner Phone Father Name Reimbursement Consultant Status 03/20/20 20 1 CLOSED Fetus Data First Name Last Name Admitted to NICU Weight (g) Sex Living Outcome Pediatric Complications Fetus ID Race Codes Race Delivery Type 3231.84 3 F Full Term 2660 Primary Weston Calculation Initial Weston Date Initial Exam Date Initial Exam Provider Initial Ultrasound Date Last Menstrual Period Date Ultra Sound Weeks Gestation 0 Eighteen To Twenty Week Weston Update Ultra Sound Date Fundal Height At Umbil Quickening Date Ultra Sound Latest Weeks Gestation Final Weston Confirmed By Final Weston Confirmed Date Final Weston Date Ultra Sound Latest Days Gestation 0 0 Menstrual History Last Menstrual Date Menses Monthly On Bcp Conception Prior Menses Frequency Hcg Plus Date Menarche Onset Age Delivery Information Delivery Date Delivery Type Labor Anesthesia Weeks Gestation Incision Type Labor Labor Length Hrs Delivered By Post Complications Tubal Sterilization Discharge Date Comments 4 37 Glory Discharge Information Feeding Method Contraceptive Method Maternal HG B and HCT Levels
--- OUTSIDE RECORDS SUMMARY | 2025-04-13 14:23 | XMS_ITS | Encounter Summary ---
Author Organization [facility] Address [address] [facility] [place] [address] Care Team Providers Care Communication Engineer Name Role Phone Drew Rios Latoya HIDALGON-ATOMIC PHYSICS TEACHER Primary Care Provider Bea Ortiz MD Unavailable Encounter Details Date Type Department Care Team (Late Contact Info) Description 07/23/2022 Telephone [facility] - Rheumatology [address] [place] [address], [address] [place] [address] Bea Ortiz MD [facility] [place] [address] Social History Tobacco Use Types Packs/Day Years Used Date Smoking Tobacco: Former Cigarettes 0 09/21/2013 - 09/21/2016 Smokeless Tobacco: Never Alcohol Use Standard Drinks/Week Comments Yes 0 (1 standard drink = 0.6 oz pur e alcohol) Monthly Comments No Sex and Gender Information Value Date Recorded Sex Assigned at Not on file Legal Sex Female 5:23 AM FILING CLERK Gender Identity Female 11/29/2020 9:01 AM FILING CLERK Sexual Orientation Not on file documented as of this encounter Plan of Treatment Upcoming Encounters Date Type Department Care Team (Late Contact Info) Description 07/25/2025 2:40 PM FILING CLERK Office Visit [facility] - Rheumatology [address] [place] [address] Bea Ortiz MD [address] [place] [address] documented as of this encounter Visit Diagnoses Not on filedocumented in this encounter Care Teams Communication Engineer Relationship Specialty Start Date End Date Drew Rios, PNEUMATIC RIVETER-ATOMIC PHYSICS TEACHER [address] [place] [address] PCP - General Nurse Practitioner Family 11/28/20 Bea Ortiz MD [address] [place] [phone] PCP - Attributed-[employer] 03/21/22 08/08/22 documented as of this encounter
== END 2025-04-13 14:16 | disposition home or self-care (01) ==
PROVIDERS: PCP Nurse Practitioner Family; Visit Provider Orthopaedic Surgery
DX: M25.562 Pain in left knee (principal)
CPT/HCPCS: 73564

== ENCOUNTER 2025-05-09 14:42 | Outpatient (CLI) | payer BC, SELFPAY ==
--- NOTE | ~2025-05-09 | MM_ITS ---
EXAMINATION: MM screening elmer BI w ady HISTORY: Screening mammogram TECHNIQUE: Craniocaudal and mediolateral oblique 3-D tomosynthesis images were obtained and synthetic 2-D images were generated. CAD analysis was submitted and interpreted. COMPARISON: 08/13/2022 BREAST PARENCHYMAL COMPOSITION:Not Dense. The breasts are almost entirely fatty FINDINGS: No suspicious mass, calcification, or architectural distortion are identified in either breast to suggest malignancy. There has been no suspicious interval change. IMPRESSION: No mammographic evidence of malignancy. Recommend routine screening mammography in one year. BI-RADS Category 1: Negative Reviewed, dictated and finalized at location .
--- OUTSIDE RECORDS SUMMARY | 2025-05-09 15:10 | XMS_ITS | Encounter Summary ---
Author Organization [facility] Address [address] [facility] [place] [address] Care Team Providers Care Geotechnical Department Manager Name Role Phone GabrielDrew APRN-MANAGER UROLOGY Primary Care Provider Encounter Details Date Type Department Care Team (Late st Contact Info) Description 05/08/2025 Telephone [facility] - Rheumatology [address] [place] [address] Bea Ortiz MD [address] [place] [phone] Social History Tobacco Use Types Packs/Day [...] on file Legal Sex Female 5:23 AM REHABILITATION THERAPIST Gender Identity Female 11/29/2020 9:01 AM REHABILITATION THERAPIST Sexual Orientation Not on file documented as of this encounter Miscellaneous Notes * Telephone Encounter - Nicolas Fuentes RPhT - 05/08/2025 1:32 PM CDT Medication Prior Authorization: Medication: Cosentyx 400 mg q28 Status: Submitted - Pending Submitted via: Cover My Meds (Chen:[email or web address]) Insurance: [employer] (p: [phone]) (f: [phone]) Case/Reference number: [id number] documented in this encounter Plan of Treatment Upcoming Encounters Date Type Department Care Team (Late st Contact Info) Description 07/25/2025 2:40 PM REHABILITATION THERAPIST Office Visit [facility] - Rheumatology [address] [place] [address] Bea Ortiz MD [address] [place] [phone] documented as of this encounter Visit Diagnoses Not on filedocumented in this encounter Care Teams Geotechnical Department Manager Relationship Specialty Start Date End Date Drew Rios, CABINET ASSEMBLER-MANAGER UROLOGY [address] [place] [phone] PCP - General Nurse Practitioner Family 11/28/20 documented as of this encounter
--- OUTSIDE RECORDS SUMMARY | 2025-05-09 15:10 | XMS_ITS | Clinical Summary ---
Author Organization [facility] Address [address] [facility] [place] [address] Care Team Providers Care Shipping Clerk Name Role Phone Drew Rios APRN-PULVERIZING AND SIFTING OPERATOR Primary Care Provider Source Comments [facility] [employer],non-owned Affiliates and Associated Physician Practices is amultiple site organization consisting of ambulatory clinics and hospital sitesin [place], [place]. This disclosure is being madepursuant to the Care Everywhere program and may not contain all information available regarding this patient. Last updated 18.[facility] [employer] Allergies No known active allergies Medications * Be aware that medications may not be up to date on this document. Alwaysverify current medications with the patient. albuterol HFA (PROVENTIL;VENT HONG;PROAIR) 108 (90 Base) MCG/ACT inhaler INHALE 2 PUFFS BY MOUTH FOUR TIMES DAILY NEEDED FOR WHEEZING OR SHORTNESS OF BREATH 021 Active cetirizine (ZYRTEC) 10 MG tablet TAKE 1 TABLET BY MOUTH DAILY NEEDED FOR ALLERGY SYMPTOMS 021 Active lisinopril (Prinivil; Zestril) 20 MG tablet lisinopril 20 mg tablet Active propranolol ER 24hr (Inderal LA) 60 MG capsule Take 1 (one) capsule by mouth once daily 024 Active pseudoephedrine (Sudafed) 30 MG tablet Take 1 (one) tablet by mouth every 8 hours as needed 024 Active folic acid (Folvite) 1 MG tablet Take 2 (two) tablets by mouth once daily 180 tablet 3 025 Active certolizumab pegol (Cimzia) injectionIndica tions:Psoriatic arthritis (HCC) Inject 400 (four hundred) mg subcutaneously every 28 days for maintenance dosing 1 kit 11 025 Active certolizumab pegol (Cimzia) injectionIndica tions:Psoriatic arthritis (HCC) Inject 400mg (two prefilled syringes) at weeks 0, 2 and 4 for loading dose. 6 mL 025 Active rizatriptan (Maxalt) 10 MG tablet TAKE 1 TAB BY MOUTH NEEDED FOR MIGRAINE MAY REPEAT IN 2 HOURS IF UNRESOLVED. MAX 3 TABS/24 HRS Active SUMAtriptan (Imitrex) 50 MG tablet TAKE 1 TABLET BY MOUTH ONCE NEEDED FOR MIGRAINE. MAY REPEAT ONE TIME AFTER 2 HOURS IF NEEDED. 025 Active meloxicam (Mobic) 7.5 MG tablet Take 1 (one) tablet by mouth 2 times daily as needed for Pain 180 tablet 1 025 Active cyclobenzaprine (Flexeril) 5 MG tablet Take 1 (one) tablet by mouth nightly as needed 30 tablet 3 025 Active methotrexate 2.5 MG tablet Take 8 (eight) tablets by mouth every 7 days (once a week) 96 tablet 025 2024 Active betamethasone dipropionate 0.05 % lotion APPLY A FEW DROPS ONTO AFFECTED AREA(S) TWICE DAILY (MORNING/BEDTIME) RUB IN GENTLY AND COMPLETELY 60 mL 025 Active betamethasone dipropionate 0.05 % lotion APPLY A FEW DROPS TOPICALLY TO THE AFFECTED AREA TWICE DAILY IN THE MORNING AND AT BEDTIME . 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 Encounters Date Type Department Care Team Description 05/08/2025 Telephone [facility] - Rheumatology [address] [place] [address] Bea Ortiz MD 05/07/2025 Refill [facility] - Rheumatology [address] [place] [address] Bea Ortiz MD Refill Request 05/06/2025 Refill [facility] Rheumatology [address] [place] [address] Bea Ortiz MD Refill Request 04/23/2025 Orders Only [facility] Rheumatology [address] [place] [address] Bea Ortiz MD Psoriatic arthritis (HCC) 02/21/2025 2:00 PM CDT Office Visit [facility] Rheumatology [address] [place] [address] Bea Ortiz MD Psoriatic arthritis (HCC) (Primary Dx) 02/21/2025 Results Follow-Up [facility] Rheumatology [address] [place] [phone] Bea Ortiz MD 02/21/2025 Travel from Last 3 Months Immunizations Immunization Administration Dates Next Due Covid [employer] primary monoval ent 12+ yr 0.3mL Purple [...] on file Legal Sex Female 5:23 AM RESEARCH HYDROLOGIST Gender Identity Female 11/29/2020 9:01 AM RESEARCH HYDROLOGIST Sexual Orientation Not on file Last Filed Vital Signs Vital Sign Reading Time Taken Comments Blood Pressure 149/90 02/21/2025 2:10 PM CDT Pulse 73 02/21/2025 2:10 PM CDT Temperature 36.7 C (98.1 F) 08/20/2022 8:46 AM RESEARCH HYDROLOGIST Respiratory Rate 24 08/20/2022 8:46 AM RESEARCH HYDROLOGIST Oxygen Saturation 97% 02/21/2025 2:10 PM CDT Inhaled Oxygen Concentration - - Weight 86.5 kg (190 lb 9.6 oz) 02/21/2025 2:10 P M CDT Height 147.3 cm (4' 10) 10/18/2024 3:11 PM RESEARCH HYDROLOGIST Body Mass Index 39.84 10/18/2024 3:11 PM RESEARCH HYDROLOGIST Plan of Treatment Upcoming Encounters Date Type Department Care Team (Late st Contact Info) Description 07/25/2025 2:40 PM RESEARCH HYDROLOGIST Office Visit [facility] - Rheumatology [address] [place] [address] [phone] Bea Ortiz MD [address] [place] [phone] Health Maintenance Due Date Last Done [...] VACCINE (1 of 2) 2023 COVID-19 VACCINE ( - season) 2024 10/10/2020, 09/18/2020, 08/29/2020 INFLUENZA [...] (HCC) HEPATITIS SCREEN ACUTE Routine 4:11 PM RESEARCH HYDROLOGIST Psoriatic arthritis from Last 3 Months or Most Recently Relevant to Health Maintenance Results * C-REACTIVE PROTEIN (02/21/2025 2:45 PM CDT) [facility] C-Reactive Protein 0.26 <=0.50 mg/dL [facility] ACCOUNT BILL Blood BLOOD SPECIMEN / Unknown 02/21/2025 2:45 PM CDT 02/21/2025 Narrative [facility] ACCOUNT BILL - 02/21/2025 11:08 PM CDT Performed at: [address] [place] [address] [facility] [address] [address] , LIONEL Moreno [id number] Delivery Crew Member: Arnol Joy Formerly [facility], Phone: [phone] us Bea Ortiz MD LAB - CHEMISTRY ORDERABLES Final Result [facility] ACCOUNT BILL [address] [place] [address] * ERYTHROCYTE SEDIMENTATION RATE (02/21/2025 2:45 PM CDT) Erythrocyte Sedimentation Rate Westergren 15 0 - 30 MM/HR [facility] ACCOUNT BILL Blood BLOOD SPECIMEN / Unknown 02/21/2025 2:45 PM CDT 02/21/2025 Narrative [facility] ACCOUNT BILL - 02/21/2025 9:08 PM CDT Performed at: [address] [place] [address] Petrona Joshi, [place], [place] [id number] Delivery Crew Member: Arnol Joy Former[facility], Phone: [phone] us Bea Ortiz MD LAB - HEMATOLOGY ORDERABLES Kaleigh l Result [facility] ACCOUNT BILL [address] [place] [address] * (ABNORMAL) CBC WITH DIFFERENTIAL (02/21/2025 2:45 PM CDT) Pathologist [facility] WBC 7.6 4.0 - 10.7 x10E9/L [facility] [...] - 02/21/2025 9:08 PM CDT Performed at: [address] [place] [id number] [place], [place] [address]efly Joshi [place], [place] [id number] Delivery Crew Member: Arnol Joy Former[facility], Phone: [phone] us Bea Ortiz MD LAB - HEMATOLOGY ORDERABLES Kaleigh l Result [facility] ACCOUNT BILL [address] [place] [address] * (ABNORMAL) COMPREHENSIVE METABOLIC PANEL (02/21/2025 2:45 PM CDT) [facility] Glucose 75 70 - 99 mg/dL [facility] [...] - 02/21/2025 11:08 PM CDT Performed at: [address] [place] [address] [facility] [place], [place] [id number] Delivery Crew Member: Arnol Joy Former[facility], Phone: [phone] Bea Ortiz MD LAB - CHEMISTRY ORDERABLES Final Result Performing Organization Address [facility] Co de Phone Number [facility] ACCOUNT BILL [address] [place] [address] * HEPATITIS SCREEN ACUTE (08/21/2021 4:11 PM RESEARCH HYDROLOGIST) Pathologist [facility] Hepatitis A Virus Antibody IgM Negative Negative [...] with a HCV Nucleic Acid Amplification test ([id number]). FASTING Blood BLOOD SPECIMEN / Unknown 08/21/2021 4:11 PM RESEARCH HYDROLOGIST 08/21/2021 Narrative Resulting Agency Comment Lab Testing performed at: [facility] [address] [place] [phone] Bea Ortiz MD LAB - CHEMISTRY ORDERABLES Final Result Performing Organization Address [facility] Co de Phone Number [facility] ACCOUNT BILL [address] [place] [address] from Last 3 Months or Most Recently Relevant to Health Maintenance Insurance CIG ANTHEM BC/BLUE [place] [facility] SELF PAY NO INSURANCE Member Subscriber Plan / Payer (Ef fective for All Dates) Name:Quinteros Maria C Member ID:Not on file Relation to Subscriber:Not on file Name:MARIA C QUINTEROS Subscriber ID:Not on file Address: [address] [place], [place] [id number] Payer ID:Not on file Group ID:Not on file Type:Self Pay Address: [place], [place] SELF PAY NO INSURANCE Member Subscriber Plan / Payer (Ef fective for All Dates) Name:Maria C Quinteros Member ID:Not on file Relation to Subscriber:Not on file Name:MARIA C QUINTEROS Subscriber ID:Not on file Address: [address] [place], [place] [id number] Payer ID:Not on file Group ID:Not on file Type:Self Pay Address: [place], [place] BCBS/[place]UE [place] SELF PAY NO INSURANCE Member Subscriber Plan / Payer (Ef fective for All Dates) Name:Damir Maria C Member ID:Not on file Relation to Subscriber:Not on file Name:MARIA C QUINTEROS Subscriber ID:Not on file Address: [address] [place], [place] [id number] Payer ID:Not on file Group ID:Not on file Type:Self Pay Address: [place], [place] Care Teams Shipping Clerk Relationship Specialty Start Date End Date Drew Rios, SURGICAL FORCEPS FABRICATOR-PULVERIZING AND SIFTING OPERATOR [address] [place] [phone] PCP - General Nurse Practitioner Family 11/28/20
--- OUTSIDE RECORDS SUMMARY | 2025-05-09 15:10 | XMS_ITS | Encounter Summary ---
Author Organization [facility] Address [address] [facility] [place] [address] Care Team Providers Care Assistant Secretary Name Role Phone Drwe Rios APRN-STAFF REGISTERED NURSE Primary Care Provider Reason for Visit * Reason Comments Refill Request Encounter Details Date Type Department Care Team (Late st Contact Info) Description 05/07/2025 Refill [facility] - Rheumatology [address] [place] [address] Bea Ortiz MD [address] [place] [phone] Refill Request Social History Tobacco Use Types Packs/Day Years [...] on file Legal Sex Female 5:23 AM WATER PLANT MAINTENANCE MECHANIC Gender Identity Female 11/29/2020 9:01 AM WATER PLANT MAINTENANCE MECHANIC Sexual Orientation Not on file documented as of this encounter Miscellaneous Notes * Telephone Encounter - Karine Bronsonyce Grecia - 05/08/2025 9:45 AM CDT NON-BIOLOGIC REFILL REQUEST Last OV: 02/21/2025 Next Appointment: 07/25/2025 Last Fill: 04/09/25 Recent Labs Component Name 02/21/25 1445 10/13/24 1356 01/19/24 1500 WBC 7.6 8.1 7.5 HGB 14.4 14.5 13.6 PLTCOUNT 245 314 128* MCV 91.6 94 90.4 Recent Labs Component Name 02/21/25 1445 10/13/24 1356 01/19/24 1500 CREATININE 0.88 0.90 0.97 BUN 14 11 13 SODIUM 143 141 142 POTASSIUM 4.3 4.6 4.5 Recent Labs Component Name 02/21/25 1445 10/13/24 1356 01/19/24 1500 11/20/21 0949 08/21/21 1611 05/22/21 1542 03/04/21 1612 EGFR 79* 77 71* - 59* 60* >60 EGFRAFR - - - - 68 >60 >60 - = values in this interval not displayed. Recent Labs Component Name 02/21/25 1445 10/13/24 1356 01/19/24 1500 AST 28 21 23 ALT 33 23 24 ALKPHOS 105 123* 76 TBIL 0.4 0.3 0.5 Last ESR: Recent Labs Component Name 02/21/25 1445 10/13/24 1356 01/19/24 1500 SEDRATE 15 21 12 Last 3 CRP: Recent Labs Component Name 02/21/25 1445 10/13/24 1356 01/19/24 1500 CRP 0.26 6 0.26 Last Eye exam (if refill for hydroxychloroquine): documented in this encounter Plan of Treatment Upcoming Encounters Date Type Department Care Team (Late st Contact Info) Description 07/25/2025 2:40 PM WATER PLANT MAINTENANCE MECHANIC Office Visit [facility] - Rheumatology [address] [place] [address] Bea Ortiz MD [address] [place] [phone] documented as of this encounter Visit Diagnoses Not on filedocumented in this encounter Care Teams Assistant Secretary Relationship Specialty Start Date End Date Drew Rios, COMPUTER TECHNICIAN-STAFF REGISTERED NURSE [address] [place] [phone] PCP - General Nurse Practitioner Family 11/28/20 documented as of this encounter
--- OUTSIDE RECORDS SUMMARY | 2025-05-09 15:10 | XMS_ITS | Encounter Summary ---
Author Organization [facility] Address [address] [place] [address] Care Team Providers Care Textile Dyer Name Role Phone Drew Rios APRN-RAILROAD BRAKE REPAIRER Primary Care Provider Reason for Visit * Reason Comments Refill Request Encounter Details Date Type Department Care Team (Late st Contact Info) Description 05/06/2025 Refill [facility] - Rheumatology [address] [place] [address] Bea Ortiz MD [address] [place] [phone] Refill Request Social History Tobacco Use Types [...] on file Legal Sex Female 5:23 AM PIPE FITTER Gender Identity Female 11/29/2020 9:01 AM PIPE FITTER Sexual Orientation Not on file documented as of this encounter Miscellaneous Notes * Telephone Encounter - Vadim Estrada, RN - 05/08/2025 8:41 AM CDT Patient chart, labs and allergies reviewed and medication denied due to sufficient refills on file.Called patient, no answer, LMOR for patient to inform of the additional refill of file. Called and MyChart message sent. NON-BIOLOGIC REFILL REQUEST Last OV: 02/21/2025 Next Appointment: 05/07/2025 Last Fill: 02/21/2025 Recent Labs Component Name 02/21/25 1445 10/13/24 [...] 105 123* 76 TBIL 0.4 0.3 0.5 Recent Labs Component Name 04/10/23 1541 [id number] 24.4* No results for input(s): URICACID in the last 87230 hours. Last ESR: Recent Labs Component Name 02/21/25 1445 10/13/24 1356 01/19/24 1500 SEDRATE 15 21 12 Last 3 CRP: Recent Labs Component Name 02/21/25 1445 10/13/24 1356 01/19/24 1500 CRP 0.26 6 0.26 Last Eye exam (if refill for hydroxychloroquine): N/A * Telephone Encounter - [place]ivi - 05/08/2025 7:43 AM CDT NON-BIOLOGIC REFILL REQUEST Last OV: 02/21/2025 Next Appointment: 05/07/2025 Last Fill: 02/21/2025 Recent Labs Component Name 02/21/25 1445 10/13/24 [...] 1356 01/19/24 1500 CRP 0.26 6 0.26 documented in this encounter Plan of Treatment Upcoming Encounters Date Type Department Care Team (Late st Contact Info) Description 07/25/2025 2:40 PM PIPE FITTER Office Visit [facility] - Rheumatology [address] [place] [address] Bea Ortiz MD [address] [place] [phone] documented as of this encounter Visit Diagnoses Not on filedocumented in this encounter Care Teams Textile Dyer Relationship Specialty Start Date End Date Drew Rios, RESOURCE RECOVERY SPECIALIST-RAILROAD BRAKE REPAIRER [address] [place] [address] [place] [phone] PCP - General Nurse Practitioner Family 11/28/20 documented as of this encounter
--- OUTSIDE RECORDS SUMMARY | 2025-05-09 15:10 | XMS_ITS | Clinical Summary ---
Author Organization [facility] Address [address] [place] [address] Care Team Providers Care Hoop Rolls Operator Name Role Phone Drew Rios NP Primary Care Provider [phone] Allergies No known active allergies Medications diclofenac [...] Description 03/14/2025 2:30 PM CDT Office Visit [facility] Neurology [address] [place] [phone] Aguilar Guzman MD Migraine without aura [...] 07/14/2013 Zoster Vaccine Completed 05/15/2023, 01/17/[address] [place] [address] [employer] Address: [address] [place] [address] epicurio OOS Member Subscriber Plan / Payer (Ef fective 2022-Present) Name:Elizabeth Reich Relation to Subscriber:Self Name:Elizabeth Reich Payer ID:[id number] (NAIC) Type:[facility] Address: [address] [place] [phone] Care Teams Hoop Rolls Operator Relationship Specialty Start Date End Date Drew Rios NP PCP - General Internal Medicine 01/28/21
--- OUTSIDE RECORDS SUMMARY | 2025-05-09 15:10 | XMS_ITS | Encounter Summary ---
Author Organization [facility] Address [address] [place] [address] Care Team Providers Care Kitchen Lead Name Role Phone Drew Rios Latoya HIDALGON-NETWORK SUPPORT Primary Care Provider Bea Ortiz MD Unavailable Encounter Details Date Type Department Care Team (Late Contact Info) Description 07/23/2022 Telephone [facility] - Rheumatology [address] [place] [address], [address] [place] [address] Bea Ortiz MD [facility] [place] [address] Social History Tobacco Use Types Packs/Day Years Used Date Smoking Tobacco: Former Cigarettes 0 09/21/2013 - 09/21/2016 Smokeless Tobacco: Never Alcohol Use Standard Drinks/Week Comments Yes 0 (1 standard drink = 0.6 oz pur e alcohol) Monthly Comments No Sex and Gender Information Value Date Recorded Sex Assigned at Not on file Legal Sex Female 5:23 AM CLINICAL PROFESSOR Gender Identity Female 11/29/2020 9:01 AM CLINICAL PROFESSOR Sexual Orientation Not on file documented as of this encounter Plan of Treatment Upcoming Encounters Date Type Department Care Team (Late Contact Info) Description 07/25/2025 2:40 PM CLINICAL PROFESSOR Office Visit [facility] - Rheumatology [address] [place] [address] Bea Ortiz MD [address] [place] [address] documented as of this encounter Visit Diagnoses Not on filedocumented in this encounter Care Teams Kitchen Lead Relationship Specialty Start Date End Date Drew Rios, SPACE ENGINEER-NETWORK SUPPORT [address] [place] [address] PCP - General Nurse Practitioner Family 11/28/20 Bea Ortiz MD [address] [place] [phone] PCP - Attributed-[employer] 03/21/22 08/08/22 documented as of this encounter
== END 2025-05-09 14:43 | disposition home or self-care (01) ==
LOC: CHSIMG 14:44
PROVIDERS: PCP Nurse Practitioner Family; Visit Provider Nurse Practitioner Family
DX: Z12.31 Encounter for screening mammogram for malignant neoplasm of breast (principal)
CPT/HCPCS: 77063; 77067

== ENCOUNTER 2025-09-20 11:55 | Outpatient (CLI) | payer OTHER, SELFPAY ==
--- NOTE | ~2025-09-20 | XR_ITS ---
XR knee RT 3V 09/20/2025 12:18 Indication: Right knee pain Procedure: 3 views right knee Comparison: No prior studies for comparison. Findings: Mild tricompartment osteoarthritis. No fracture, subluxation or dislocation. No significant joint effusion. No foreign bodies. Impression: 1: Mild tricompartment osteoarthritis. Reviewed, dictated and finalized at location O. DRIVER Impression: 1: Mild tricompartment osteoarthritis.
--- OUTSIDE RECORDS SUMMARY | 2025-09-20 11:59 | XMS_ITS | Encounter Summary ---
Author Organization [facility] Address [address] [facility] [place] [address] Care Team Providers Care Body Care Manager Name Role Phone Drew Rios Primary Care Provider Bea Ortiz MD Unavailable Encounter Details Date Type Department Care Team (Late st Contact Info) Description 07/23/2022 Telephone [facility] Medical [facility] - Rheumatology [address] [facility], [address] [place] [address] Bea Ortiz MD [address] [place] [address] Social History Tobacco Use Types Packs/Day Years Used Date Smoking Tobacco: Former Cigarettes 3 0 09/21/2013 - 09/21/2016 Smokeless Tobacco: Never Alcohol Use Standard Drinks/Week Comments Yes 0 (1 standard drink = 0.6 oz pur e alcohol) Monthly Comments No Sex and Gender Information Value Date Recorded Sex Assigned at Not on file Legal Sex Female 5:23 AM WATERPROOFING MACHINE OPERATOR Gender Identity Female 11/29/2020 9:01 AM WATERPROOFING MACHINE OPERATOR Sexual Orientation Not on file documented as of this encounter Plan of Treatment Not on file documented as of this encounter Visit Diagnoses Not on filedocumented in this encounter Care Teams Body Care Manager Relationship Specialty Start Date End Date Drew Rios APRN-CNP [address] [place] [phone] PCP - General Nurse Practitioner Family 11/28/20 Bea Ortiz MD [address] [place] [phone] PCP - Attributed-[employer] 03/21/22 08/08/22 documented as of this encounter
--- OUTSIDE RECORDS SUMMARY | 2025-09-20 11:59 | XMS_ITS | Data Portability ---
Author Organization [place] - [facility], Main Office Address [address] [place] [address] Assessment No assessment recorded. Plan of Treatment Reminders Order Date Submit Date Provider Last Modified By Organization Details Last Modified Time Details Appointments None recorded. Lab None recorded. Referral None recorded. Procedures None recorded. Surgeries None recorded. Imaging None recorded. Medication Orders clotrimazol e-betametha sone 1 %-0.05 % topical cream 2021 022 [facility]/Pharmacy #[id number], [address], [place], [address], 17:42:01 fluconazole 100 mg tablet 2021 022 [facility]/Pharmacy #[id number], [address] , [place], [address], 13:08:50 Patient TargetsNo targets recorded. Patient Instructions Encounter Date Encounter Id Patient Instructions Last Modified By Organization Details Last Modified Time 03/19/2022 [id number] She will follow up with me only as needed. 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 On today's visit I spent a total of 40 minutes prepping for her visit (reviewing past and shared records), [id number] with her and documenting. Not available 04/27/2022 13:45:12 07/24/2022 [id number] Patient counsele d to F/U immediately if temp. greater than 100.4, if is unable to urinate, increased rectal pain or any other concerns. Not available 10/07/2022 13:25:50 She will follow up with me only as needed. I advised that if she feels she needs another treatment the soonest I would see her would be in 3 months. On today's visit I spent a total of 30 minutes prepping for her visit (reviewing past and shared records), [id number] with her and documenting. Not available 10/07/2022 13:26:53 Reason for Referral None Reported. Problems Name Problem SNOMED Code Status Onset Date Resolution Date Notes Provider Name and Address Organization Details Recorded Time Pile easily reducible [id number] Active 2012 Tx #1: 01/12/13 1.2 x 8 RP Tx #2: 01/19/13 1.2 x 9 LL Tx #3: 01/26/13 1.1 x 6 RA Tx #4: 02/16/13 1.2 x 6 RP Tx #5: 03/02/13 1.2 x 6 LL Tx #6: 01/30/15 1.2 x 5 RP and 1.2 x 5 LL 03/19/22: No tx - dermatitis Tx #7: 07/24/22 1.2 x 6 RP and 1.2 x 5 LL Sue Gomes MD [address] [place] [address],[facility] [address] [place] [address], [phone] , [facility] [place] 3 13:18:28 External hemorrhoid s 30588336 Active 2012 Sue Gomes MD [address] [place] [address],[facility] [address] [place] [address], [phone], [facility] [place] 2 13:08:09 Perianal dermatitis [id number] Active 2012 [facility] Gomes MD [facility] [address], [place], [address] , [facility] [place] 2 13:06:08 Screening for malignant neoplasm of colon Active 2021 Sue Gomes MD [facility] [address], [place], [address] , [facility] [place] 2 13:37:30 Psoriatic arthritis [id number] Active 2021 Sue Gomes MD [address] [place] [address],[address], [place], [address] , [facility] [place] 2 13:42:18 Problem Notes None recorded. Procedures Surgical History Date Name Laterality Status Provider Name and Address Organization Details Recorded Time 2 IRC completed Sue Gomes MD [address] [place] [address],[address], [place], [address], [facility] 10/07/2022 13:18:51 2 Feces-based colorectal cancer DNA screening completed Sue Gomes MD [address] [place] [address],[address], [place], [place], [address] [place] [address], [facility] 05/01/2025 14:49:12 section completed Sue Gomes MD [address] [place] [address],[address], [place], [address], [facility] 04/27/2022 13:27:49 Imaging Results None recorded. Procedure Notes None recorded. Medical Equipment None Reported. Allergies No known drug allergies Medications Name Sig Start Date Stop Date Status Note LastModified by Organization Details LastModified Time fluconazo le 100 mg tablet TAKE 1 TABLET BY MOUTH EVERY DAY DIRECTED FOR 7 DAYS 10/07 completed Not Available Not Available Not Available prednison e 10 mg tablet active Not Available Not Available Not Available sulfasala zine 500 mg tablet TAKE 1 TABLET BY MOUTH TWICE DAILY 04/27 completed Not Available Not Available Not Available cetirizin e 10 mg tablet TAKE 1 TABLET BY MOUTH DAILY NEEDED FOR ALLERGY SYMPTOMS active Not Available Not Available No t Available azithromy hernan 250 mg tablet TAKE 2 TABLETS BY MOUTH TODAY, THEN TAKE 1 TABLET DAILY FOR 4 DAYS DIRECTED active Not Available Not Available No t Available tizanidin e 4 mg tablet TAKE 1 TABLET BY MOUTH EVERY 6 HOURS NEEDED FOR 10 DAYS 04/27 completed Not Available Not Available Not Available benzonata te 200 mg capsule TAKE 1 CAPSULE BY MOUTH THREE TIMES A DAY FOR 7 DAYS active Not Available Not Available No t Available lisinopri l 20 mg tablet TAKE 1 TABLET BY MOUTH EVERY DAY active Not Available Not Available No t Available ondansetr on HCl 4 mg tablet TAKE 1 TABLET BY MOUTH EVERY 8 HOURS NEEDED FOR NAUSEA/V OMITING active Not Available Not Available No t Available prednison e 20 mg tablet TAKE 2 TABS BY MOUTH DAILY FOR 5 DAYS active Not Available Not Available No t Available rizatript an 10 mg tablet TAKE 1 TAB BY MOUTH NEEDED FOR MIGRAINE MAY REPEAT IN 2 HOURS IF UNRESOLV ED. MAX 3 TABS/24 HRS active Not Available Not Available No t Available propranol ol ER 60 mg capsule,2 4 hr,extend ed release TAKE 1 CAPSULE BY MOUTH EVERY DAY active Not Available Not Available No t Available sumatript an 50 mg tablet TAKE 1 TABLET BY MOUTH ONCE NEEDED FOR MIGRAINE . MAY REPEAT ONE TIME AFTER 2 HOURS IF NEEDED. active Not Available Not Available No t Available metronida zole 500 mg tablet TAKE 1 TABLET BY MOUTH EVERY 12 HOURS FOR 7 DAYS active Not Available Not Available No t Available meloxicam 7.5 mg tablet TAKE 1 TABLET BY MOUTH TWICE A DAY NEEDED FOR PAIN active Not Available Not Available No t Available estradiol 1 mg tablet TAKE 1 TABLET BY MOUTH DAILY 04/27 completed Not Available Not Available Not Available methotrex ate sodium 2.5 mg tablet TAKE 8 TABLETS BY MOUTH EVERY 7 DAYS active Not Available Not Available No t Available benzonata te 100 mg capsule TAKE 1 CAPSULE BY MOUTH 3 TIMES A DAY NEEDED 04/27 completed Not Available Not Available Not Available cephalexi n 500 mg capsule TAKE 1 CAPSULE BY MOUTH EVERY 8 HOURS FOR 5 DAYS 10/07 completed Not Available Not Available Not Available clotrimaz ole-betam ethasone 1 %-0.05 % topical cream APPLY 1 APPLICAT ION BY TOPICAL ROUTE TWICE A DAY DIRECTED FOR 14 DAYS active Not Available Not Available No t Available propranol ol ER 80 mg capsule,2 4 hr,extend ed release TAKE 1 CAPSULE BY MOUTH EVERY DAY active Not Available Not Available No t Available nystatin- triamcino lone 100,000 unit/g-0. 1 % topical cream APPLY TO AFFECTED AREA TWICE A DAY IN THE MORNING AND IN THE EVENING active Not Available Not Available No t Available diclofena c sodium 75 mg tablet,de layed release TAKE 1 TABLET BY MOUTH TWICE DAILY active Not Available Not Available No t Available folic acid 1 mg tablet TAKE 2 TABLETS BY MOUTH ONCE DAILY active Not Available Not Available No t Available clobetaso l 0.05 % topical ointment APPLY A THIN LAYER TO THE AFFECTED AREA OF THE THIGHS 1 OR 2 TIMES DAILY NEEDED UNTIL THE RASH IMPROVES . 10/07 completed 03/19/22: She does not use in the ravinder-lidya area. Not Available Not Available Not Available hydroxych loroquine 200 mg tablet TAKE 2 TABLETS BY MOUTH EVERY DAY 04/27 completed Not Available Not Available Not Available albuterol sulfate HFA 90 mcg/actua tion aerosol inhaler INHALE 2 PUFFS EVERY 4-6 HOURS NEEDED FOR SHORTNES S OF BREATH OR WHEEZE FOR 30 DAYS active Not Available Not Available No t Available betametha sone dipropion ate 0.05 % lotion APPLY A FEW DROPS ONTO AFFECTED AREA(S) TWICE DAILY (MORNING /BEDTIME ) RUB IN GENTLY AND COMPLETE LY active Not Available Not Available No t Available amoxicill in 875 mg-potass ium clavulana te 125 mg tablet TAKE 1 TABLET BY MOUTH TWICE A DAY 03/19 completed Not Available Not Available Not Available cyclobenz aprine 5 mg tablet TAKE 1 TABLET BY MOUTH NIGHTLY NEEDED active Not Available Not Available No t Available Humira(CF ) Pen 40 mg/0.4 mL subcutane ous kit 04/27 completed Cannot get on consiste ntly due to cost Not Available Not Available Not Available ID NOW COVID-19 Test Kit TEST DIRECTED TODAY 04/27 completed Not Available Not Available Not Available Vitals None Recorded Social History Question Answer Notes LastModified by Organizat ion Details LastModified Time Tobacco Smoking Status Former Smoker [facility], [place] - [facility] [place] 03/19/2022 17:09:59 Alcohol Use Yes Information n ot available 03/19/2022 Alcohol Amount Occasional Information not available 03/19/2022 Caffeine Use Yes Information not available 03/19/2022 Caffeine Type Coffee Information not available 03/19/2022 Caffeine Amount 1 To 2 Cups A Week Information not available 03/19/2022 Illicit Drug Use No Information not available 04/27/2022 What Was The Date Of Your Most Recent Tobacco Screening? 03/19/2022 Information not available 03/19/2022 Sex: Female Functional Status Question Answer Note LastModified by Organizat ion Details LastModified Time Do you or have you ever used any other forms of tobacco or nicotine? Yes Information not available 03/19/2022 Do you or have you ever used smokeless tobacco? Never used smokeless tobacco Information not available 03/19/2022 Do you or have you ever used e-cigarettes or vape? Never used electronic cigarettes Information not available 03/19/2022 Mental Status None recorded. Family History Relationship Description Onset Age of this Age Resolved Age Notes LastModified by Organization Details LastModified Time Mother Carcinoma of cervix 60 Not available 2021 17:14:37 Mother Heart disease 60 Not available 2021 17:15:36 Mother Diabetes mellitus 60 Not available 2021 17:17:15 Medical History Condition Response Headaches/Migraines Y Arthritis/Gout Y Asthma Y Autoimmune Disease Y Gynecological History Statement/Question Response Number of Pregnancies? 3 Tear or Laceration During Delivery? N Could You Be or Are You Currently Pregna nt? N Number of C-Sections? 3 Number of Vaginal Deliveries? 0 Accidental Bowel Leakage Post Delivery? N Episiotomy During Delivery? N Obstetrics History GPAL:G 0 P 0 0 0 0 Past Encounters Encounter ID Performer Location Encounter Start Date Encounter Closed Date Diagnosis/Indication Diagnosis SNOMED-CT Code Diagnosis ICD10 Code Diagnosis IMO Codes Diagnosis Note [id number] Sue Gomes MD Main Office [address] [address] 03/19/2022 16:40:37 03/19/2022 17:41:10 Perianal dermatitis [id number] L30.9 I discussed how to use the Lotrisone Cream. I want her to use it consistent ly BID for 2 weeks and then stop. She then needs to start using a good skin protectant and I recommende d Angie' [employer] Butt Paste with Aloe. I advised she needs to use a gentle soap, only her hand with cleaning, moist baby wipes (NOT flushable wipes) and try to keep the area open and as dry as possible. She is getting ready to go on vacation to [place] so I am also putting her on fluconazol e 100 mg p.o. q day for 7 days as it will be difficult to use the cream BID consistent ly and they will be very active as well as sitting on the beach, etc. Screening for malignant neoplasm of colon [id number] Z12.11 I discussed with her she is over due for screening as the guidelines have changed to age 45. I advised there are non-invasi ve tests she could do but the colonoscop y is the gold standard. She also has a high deductible on her insurance. If a non-invasi ve test is positive, she will then need a colonoscop y and this might be considered diagnostic and therefore would be more expensive. I advised she have the colonoscop y. She would like a recommenda tion from her PCP as to who to see in [place] as I am not familiar with the GI's in that area. Psoriatic arthritis 1563 50575 L40.50 She sees her dermatolog ist regularly. External hemorrhoids [id number] 92200 K64.4 I discussed hemorrhoid s in general with her again as well as the treatment options. I think her current symptoms are due to the dermatitis and she does not need to have any procedures done on her hemorrhoid s.She of course needs to consistent ly eat a high fiber diet and drink plenty of water to maintain 2 - 3 times daily BM's that are soft. [id number] Sue Gomes MD Main Office [address] [facility] [address] [place] [address] 07/24/2022 17:04:38 07/24/2022 18:04:52 Pile easily reducible [id number] K64.1 Stage 1 - 2 internal hemorrhoid s: She has done well with infrared coagulatio n in the past and I think she would benefit now. I reviewed full informed consent with her including risks/bene fits and alternativ es. She wanted to proceed with treatment. Her 7th overall treatment was done today on her RP and LL internal hemorrhoid s.She of course needs to consistent ly eat a high fiber diet and drink plenty of water to maintain 1 - 2 times daily BM's that are soft (Barrow Scale type 4). She should take a tiny amount of psyllium if needed. External hemorrhoids [phone] 82733 K64.4 These should improve with IRC. She fully understand s the only way to directly treat external hemorrhoid s/skin tags would be with a surgical excision. She does not wish to pursue this and her hemorrhoid s are not bad enough to warrant surgery. She should consistent ly use the moist baby wipes and follow good skin techniques . Screening for malignant neoplasm of colon [id number] Z12.11 She states she just had a negative ColoGuard. I advised that if she is going to stay with the non-invasi ve tests she needs to do them as frequently as her insurance will cover them. Psoriatic arthritis 1956 82507 L40.50 She sees her rheumatolo gist and dermatolog ist regularly. Perianal dermatitis 3036 37775 L30.9 This has resolved. Health Concerns Section Related Observation LastModified by Organization Detai ls LastModified Time None Recorded Concern Status LastModified by Organization Details LastModified Time None Recorded Advance Directives Directive None Recorded Payers Insurance Date Sequence Insurance Name Policy Number Policy Guevara Covered Member ID Guevara Member ID Guarantor Name 07/09/2022 1 [employer] (POS) [id number] Ever Reich [id number] Elizabeth Reich 05/29/2025 1 [place] [id number] Elizabeth Reich [id number] Elizabeth Reich 07/24/2022 1 [employer] [facility] Elizabeth Reich [id number] Elizabeth Reich Notes Date Note Type Note Provider Name and Address Organization Details Recorded Time 03/19/2022 text/html ROS as noted in the HPI See previous visits. She states she did well after her last infrared coagulation treatment on 01/30/15. She had some pain/discomfort with BM's about once every 2 - 3 months. She would use OTC Recticare for a few days and her symptoms would resolve completely.She has been much worse over the last 1 months and significantly worse over the last 1 week. She has had severe itching. 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 Last prescription for 45 grams was written 09/26/15. She states she used it on and off for a couple of years but has been out of it for the last3 - 4 years and has just been using the Recticare. Bleeding: She occasionally sees a scant amount of BRB on the wipe with a BM. She has had no heavy bleeding and no leakage of blood in between BM's. Pain: The itching can cause enough burning that it is painful. She does not have ripping pain with BM's. Itching: As above. This is severe around the entire anal opening. Discharge: It is always hard to get clean after BM's because of irritation. She does not always use the moist baby wipes. She does not have difficulty staying clean - she does not have to re-wipe. She has no drainage. Prolapse: Not that she feels or has to manually reduce. External swelling: She has minor external swelling with BM's. Discomfort: Only as above. She denies internal symptoms of pressure, a sense of being blocked when trying to have a BM or a sense of incomplete emptying after BM's. Previous Hemorrhoid Treatment: She has had the infrared coagulation treatments here - 5 treatments from 12/2012 - 02/2013 and 1 on 01/30/2015. She uses the Recticare. Previous Lower GI Endoscopy: She has never had a colonoscopy or any other form of C/R cancer screening. Bowel Habits: She has had long standing 2 - 3 times daily BM's that are soft. She consistently eats a high fiber diet and drinks plenty of water. She is not currently taking a fiber supplement or stool softener. Sue Gomes MD [address], [place], [address], [facility] 04/27/2022 13:48:55 07/24/2022 text/html See previous visits. She states she did well after the treatment on 03/19/22. She had no symptoms from her hemorrhoids or fissure until about mid-May when she developed some swelling and discomfort. She states she has a little bump that comes and goes and it is very tender when present. She has had no bleeding. She uses the Recticare. She has not felt any skin issues. She has not felt the issue is related to her fissures.Her BM's have been consistently 2 - 3 times daily and soft.She states she just had a negative ColoGuard test. 03/19/22:See previous visits. She states she did well after her last infrared coagulation treatment on 01/30/15. She had some pain/discomfort with BM's about once every 2 - 3 months. She would use OTC Recticare for a few days and her symptoms would resolve completely.She has been much worse over the last 1 months and significantly worse over the last 1 week. She has had severe itching. 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 Last prescription for 45 grams was written 09/26/15. She states she used it on and off for a couple of years but has been out of it for the last3 - 4 years and has just been using the Recticare.Bleeding: She occasionally sees a scant amount of BRB on the wipe with a BM. She has had no heavy bleeding and no leakage of blood in between BM's.Pain: The itching can cause enough burning that it is painful. She does not have ripping pain with BM's.Itching: As above. This is severe around the entire anal opening.Discharge: It is always hard to get clean after BM's because of irritation. She does not always use the moist baby wipes. She does not have difficulty staying clean - she does not have to re-wipe. She has no drainage.Prolapse: Not that she feels or has to manually reduce.External swelling: She has minor external swelling with BM's.Discomfort: Only as above. She denies internal symptoms of pressure, a sense of being blocked when trying to have a BM or a sense of incomplete emptying after BM's.Previous Hemorrhoid Treatment: She has had the infrared coagulation treatments here - 5 treatments from 12/2012 - 02/2013 and 1 on 01/30/2015. She uses the Recticare.Previous Lower GI Endoscopy: She has never had a colonoscopy or any other form of C/R cancer screening.Bowel Habits: She has had long standing 2 - 3 times daily BM's that are soft. She consistently eats a high fiber diet and drinks plenty of water. She is not currently taking a fiber supplement or stool softener. Sue Gomes MD [facility],[address], [place], [address], [facility] [place] [facility] 10/07/2022 13:27:51 OBGyn Episode No OBEpisode recorded.
--- OUTSIDE RECORDS SUMMARY | 2025-09-20 11:59 | XMS_ITS | Data Portability ---
Author Organization [facility] [place] Address [address] [place] [address] [address] Assessment No assessment recorded. Plan of Treatment Reminders Order Date Submit Date Provider Last Modified By Organization Details Last Modified Time Details Appointments None recorded. Lab unlisted lab - women's health swab, ROSALES 2024 025 [facility] (Lab), [address], [place], [address], 5 13:17:25 urinalysis, dipstick [address], [address], [place], [address], 10:44:48 culture, urine 2024 025 [facility] (Lab), [address], [place], [address], 5 05:00:37 herpes simplex, culture, unspecified specimen 2024 025 [facility] (Lab), [address], [place], [address], 5 05:00:37 unlisted lab - women's health swab, ROSALES 2024 025 [facility] (Lab), [address], [place], [address], 5 05:00:36 Referral None recorded. Procedures None recorded. Surgeries total hysterectom y, laparoscopi c, with bilateral salpingo-oo phorectomy (SURG) 2019 020 [facility], [address], [place], [address], 0 13:28:17 Imaging None recorded. Medication Orders estradiol 0.01% (0.1 mg/gram) vaginal cream 2024 025 [id number], [address], [place], [address], 5 16:19:53 clobetasol 0.05 % topical ointment 2024 025 [id number], [address], [place], [address], 5 16:19:53 nystatin-tr iamcinolone 100,000 unit/g-0.1 % topical cream 2024 025 [id number], [address], [place], [address], 5 11:47:09 Danii 0.35 mg tablet [id number] [facility] [address] [id number], [address], [place], [place], [id number], 5 10:14:16 Patient TargetsNo targets recorded. Patient InstructionsNo instructions recorded. Reason for Referral None Reported. Results Created Date Observation Date Name Description Value Unit Range Abnormal Flag Note LastModifiedBy Organization Detail LastModifiedTime 04/11/2004/11/2025 [facility] SW[facility], ROSALES essence species, tma Negati ve negati ve Not Available [facility] (Lab) [address], [place], [address], 04/15/2025 05:00:36 04/11/20 25 04/11/2025 WOM[facility] 'S HEALT H SWAB, ROSALES essence glabrata, tma Negati ve negati ve Not Available [facility] (Lab) [address] [place], [address], 04/15/2025 05:00:36 04/11/2004/11/2025 WOMEN 'S HEALT H SWAB, ROSALES trichomonas vaginalis, tma Negati ve negati ve This assay tests for and diffe renti ates betwe en Alondra da glabr eulalio, the Alondra da speci es group (C. albic ans, C. tropi calis , C. parap edin is, C. dubli ni is), and Trich omona s vagin walter by Trans cript ion-M ediat ed Ampli ficat ion (TMA) . Not Available [facility] (Lab) [address] [facility], [place], [address], 04/15/2025 05:00:36 04/11/20 25 04/11/2025 WOMEN 'S HEALT H SWAB, ROSALES bacterial vaginosis (bv), tma Positi ve negati ve abnormal This test detec ts ribos omal RNA from bacte demetrius assoc iated with bacte rial vagin osis (BV), inclu ding Lacto bacil sophie (L. gasse ri, L. crisp atus and L. jense my), Gardn erell a vagin walter, and Atopo bium vagin ae by Trans cript ion-M ediat ed Ampli ficat ion (TMA) . A singl e quali tativ e resul t is repor tawny based on instr ument softw are to deter mine BV posit elvia or negat elvia statu s. Not Available [facility] (Lab) [address] [place], [address], 04/15/2025 05:00:36 04/11/20 25 04/11/2025 CULTU RE: URINE result report SEE RESULT S BELOW Test: Cultu re: Urine Speci men Sourc e: Urine Voide d Speci men Type: Urine Speci men Date: 2024 1035 Resul t Date: 2024 2306 Resul t Statu s: Final resul t Abnor mal: No Resul ting Lab: [facility] [address] [facility] [address] Tel: CULTU RE ----- ----- ----- --- Cultu re resul t (>=3 organ isms prese nt) indic ates possi ble conta minat ion. Repea t cultu re if sympt oms indic ate. Not Available [facility] (Lab) [address], [place], [address], 04/15/2025 05:00:37 04/11/20 25 04/11/2025 CULTU RE: HERPE S SIMPL EX VIRUS (HSV) , REFLE X TYPIN G source LESION FLUID Not Available [facility] (Lab) [address] [facility], [place], [address], 04/15/2025 05:00:37 04/11/20 25 04/11/2025 CULTU RE: HERPE S SIMPL EX VIRUS (HSV) , REFLE X TYPIN G hsv culture, body fluid NOT ISOLAT ED Perfo rming Organ izati on Infor matio n: Site ID: CB Name: [facility] Addre ss: [address] [place], [place] [id number] Dire tor: Roseanna sun V Rafael s Not Available [facility] (Lab) [address] [facility] [address], [place], [address], 04/15/2025 05:00:37 04/11/20 25 04/11/2025 urina lysis , dipst ick Leukocytes ++ Not Available Ahsan laughlin [address], [place], [address], 04/11/2025 10:40:49 04/11/20 25 04/11/2025 urina lysis , dipst ick Nitrite - Not Available [place] [address], [place], [address], 04/11/2025 10:40:49 04/11/20 25 04/11/2025 urina lysis , dipst ick Urobilinogen - Not Available [facility] [place] [address], [place], [address], 04/11/2025 10:40:49 04/11/20 25 04/11/2025 urina lysis , dipst ick Protein trace Not Available [place] [address], [place], [address], 04/11/2025 10:40:49 04/11/20 25 04/11/2025 urina lysis , dipst ick pH 5 Not Available [place] [address], [place], [address], 04/11/2025 10:40:49 04/11/20 25 04/11/2025 urina lysis , dipst ick Blood +++ Not Available [place] [address], [place], [address], 04/11/2025 10:40:49 04/11/20 25 04/11/2025 urina lysis , dipst ick Specific Fabens 1.[address] [facility] [address], [place], [address], 04/11/2025 10:40:49 04/11/20 25 04/11/2025 urina lysis , dipst ick Ketone - Not Available [place] [address], [place], [address], 04/11/2025 10:40:49 04/11/20 25 04/11/2025 urina lysis , dipst ick Bilirubin - Not Available Zulema garay [address], [place], [address], 04/11/2025 10:40:49 04/11/20 25 04/11/2025 urina lysis , dipst ick Glucose - Not Available [place] [address], [place], [address], 04/11/2025 10:40:49 04/11/20 25 04/11/2025 urina lysis , dipst ick Appearance clear Not Available [facility] [address], [place], [address], 04/11/2025 10:40:49 04/11/20 25 04/11/2025 urina lysis , dipst ick Color light yellow Not Available [place] [address], [place], [address], 04/11/2025 10:40:49 07/18/20 25 07/18/2025 WOMEN 'S HEALT H SWAB, ROSALES essence species, tma Negati ve negati ve Not Available [facility] (Lab) [address] [place], [address], 07/19/2025 13:17:25 07/18/20 25 07/18/2025 [facility], ROSALES essence glabrata, tma Negati ve negati ve Not Available [facility] (Lab) [address] [place], [address], 07/19/2025 13:17:25 07/18/20 25 07/18/2025 [facility] SW[facility], ROSALES trichomonas vaginalis, tma Negati ve negati ve This assay tests for and diffe renti jenni cobos en Alondra da glabr eulalio, the Alondra da speci es group (C. albic ans, C. tropi calis , C. parap edin is, C. dubli niens is), and Trich omona s vagin walter by Trans cript ion-M ediat ed Ampli ficat ion (TMA) . Not Available [facility] (Lab) [address] [place], [address], 07/19/2025 13:17:25 07/18/20 25 07/18/2025 WOMEN 'S HEALT H SWAB, ROSALES bacterial vaginosis (bv), tma Positi ve negati ve abnormal This test detec ts ribos omal RNA from bacte demetrius assoc iated with bacte rial vagin osis (BV), inclu ding Lacto bacil sophie (L. gasse ri, L. crisp atus and L. jense my), Gardn erell a vagin walter, and Atopo bium vagin ae by Trans cript ion-M ediat ed Ampli ficat ion (TMA) . A singl e quali tativ e resul t is repor tawny based on instr ument softw are to deter mine BV posit elvia or negat elvia statu s. Not Available [facility] (Lab) [address], [place], [address], 07/19/2025 13:17:25 Result Notes None recorded. Problems Name Problem SNOMED Code Status Onset Date Resolution Date Notes Provider Name and Address Organization Details Recorded Time Specializ ed medical examinati on Active 2012 Gynecologi yakelin Examinatio n;Recorded Elsewhere: No Locatio n: [facility] rce: EHR Chroni c: N Practice ID: 0001 Billa ble Time: 04:30:00 PM Not Available [facility] 0 17:02:02 Screening for malignant neoplasm of cervix Active 2012 Screening for malignant neoplasms of the cervix;Rec orded Elsewhere: No Locatio n: [facility] rce: EHR Chroni c: N Practice ID: 0001 Billa ble Time: 04:30:00 PM Not Available [facility] 0 17:02:02 Abdominal pain 37946199 Active 2012 Abdominal Pain;Recor ded Elsewhere: No Locatio n: [facility] rce: EHR Chroni c: N Practice ID: 0001 Billa ble Time: 08:15:00 AM Not Available [facility] 0 17:02:01 Menstruat ion finding Active 2012 Excessive or frequent menstruati on;Recorde d Elsewhere: No Locatio n: [facility] rce: EHR Chroni c: N Practice ID: 0001 Billa ble Time: 03:30:00 PM Not Available [facility] 0 17:02:01 test negative [id number] Active 2012 examinatio n or test, negative result;Rec orded Elsewhere: No Locatio n: [facility] rce: EHR Chroni c: N Practice ID: 0001 Billa ble Time: 03:30:00 PM Not Available [facility] 0 17:02:01 Vaginitis and vulvovagi nitis Active 2013 Vaginitis; Recorded Elsewhere: No Locatio n: [facility] rce: EHR Chroni c: N Practice ID: 0001 Billa ble Time: 03:15:00 PM Not Available [facility] 0 17:02:01 Microscop ic hematuria [id number] Active 2013 MICROSCOPI C HEMATURIA; Recorded Elsewhere: No Locatio n: [facility] rce: EHR Chroni c: N Practice ID: 0001 Billa ble Time: 03:15:00 PM Not Available [facility] 0 17:02:01 Finding of regularit y of menstrual cycle Active 2018 Irregular menstruati on, unspecifie d;Recorded Elsewhere: No Locatio n: [facility] rce: EHR Chroni c: N Practice ID: 0001 Billa ble Time: 02:30:00 PM Not Available [facility] 0 17:02:01 Hypertrop hy of uterus 641163983 Active 2018 Hypertroph y of uterus;Rec orded Elsewhere: No Locatio n: [facility] rce: EHR Chroni c: N Practice ID: 0001 Billa ble Time: 02:30:00 PM Not Available [facility] 0 17:02:02 Bleeding Active 2018 Abnormal uterine and vaginal bleeding, unspecifie d;Recorded Elsewhere: No Locatio n: [facility] rce: EHR Chroni c: N Practice ID: 0001 Billa ble Time: 04:15:00 PM Not Available [facility] 0 17:02:01 Pelvic and perineal pain 934890353 Active 2019 Pelvic and perineal pain;Recor ded Elsewhere: No Locatio n: [facility] rce: EHR Chroni c: N Practice ID: 0001 Billa ble Time: 09:30:00 AM Not Available [facility] 0 17:02:01 Procedure on genitouri nary system Active 2019 Encounter for surgical aftercare following surgery on the genitourin addie system;Rec orded Elsewhere: No Locatio n: [facility] rce: EHR Chroni c: N Practice ID: 0001 Billa ble Time: 08:30:00 AM Not Available [facility] 0 17:02:01 Postopera tive care Active 2019 Encounter for surgical aftercare following surgery on the genitourin addie system;Rec orded Elsewhere: No Locatio n: [facility] rce: EHR Chroni c: N Practice ID: 0001 Billa ble Time: 08:30:00 AM Not Available [facility] 0 17:02:01 Problem Notes None recorded. Procedures Surgical History Date Name Laterality Status Provider Name and Address Organization Details Recorded Time 04/02/20 20 TOTAL HYSTERECTOMY, LAPAROSCOPIC, WITH BILATERAL SALPINGO-OOPHORE CTOMY (SURG) completed Ashley López [facility] 11/29/2020 18:01:28 07/22/20 19 Dilation and Curettage completed [facility] 03/20/2020 17:49:55 07/22/20 19 Hysteroscopy completed [facility] 03/20/2020 17:50:17 04/21/19 99 delivery completed [facility] 03/20/2020 17:48:24 04/21/19 94 delivery completed [facility] 03/20/2020 17:48:11 08/01/19 92 delivery completed Ze[facility] Barrett [facility] 03/20/2020 17:48:32 Imaging Results None recorded. [...] Not Available No t Available benzonata te 200 mg capsule TAKE 1 CAPSULE BY MOUTH THREE TIMES A DAY FOR 7 DAYS 04/11 completed Not Available Not Available Not Available hydrocodo [...] completed Not Available Not Available Not Available metronida zole 500 mg tablet Take 1 tablet every 12 hours by oral route for 7 days. 08/16 completed Not Available Not Available Not Available [...] Not Available Not Available No t Available clotrimaz ole-betam ethasone 1 %-0.05 % [...] APPLY A THIN LAYER TO THE AFFECTED AREA(S) BY TOPICAL ROUTE 2 TIMES PER DAY NEEDED active Not Available Not Available No t Available estradiol 0.01% (0.1 mg/gram) vaginal cream INSERT ONE GRAM VAGINALL Y ONCE NIGHTLY X 2 WEEKS, THEN TWICE WEEKLY active Not Available Not Available No t [...] Prescrib ed Elsewher e: No Locat ion: [facility] By: gricelda cervantes DateTime : 10/22/19 [...] Prescrib ed Elsewher e: No Locat ion: [facility] By: amber wilson DateTime : 08/01/20 04:00:00 PM Not Available Not Available Not Available Norlyda 0.35 mg tablet Take 1 tablet every day by oral route. 04/11 completed Not Available Not Available Not Available Vitals Date Recorded Body height Body mass index (BMI) Body weight Systolic And Diastolic Systolic And Diastolic Provider Name and Address Organization Details Last Updated DateTime 03/20/2020 149.86 cm 35.5 kg/m2 00568.26 g 146/90 mm[Hg] 140/90 mm[Hg] [facility] 0 17:40:39 Date Recorded Body height Body mass index (BMI) Body weight Systolic And Diastolic Provider Name and Address Organization Details Last Updated DateTime 04/11/2025 144.78 cm 41.1 kg/m2 35109.55 g 153/100 mm[Hg] Martha Quiros [facility] 04/11/2025 10:13:21 Date Recorded Body height Body mass index (BMI) Body weight Systolic And Diastolic Provider Name and Address Organization Details Last Updated DateTime 04/13/2020 149.86 cm 34.7 kg/m2 42576.89 g 136/84 mm[Hg] [facility] 04/13/2020 15:45:06 Date Recorded Body height Body mass index (BMI) Body weight Systolic And Diastolic Provider Name and Address Organization Details Last Updated DateTime 07/18/2025 144.78 cm 40.5 kg/m2 27210.77 g 134/82 mm[Hg] Martha Quiros [facility] 07/18/2025 16:00:06 Social History Question Answer Notes LastModified by Organizat ion Details LastModified Time Tobacco Smoking Status Former Smoker Zeenat Barrett angie, [facility] 03/20/2020 17:44:46 Do You Have An Advance Directive? No [email or web address] Information n ot available 04/11/2025 Are You Blind Or Do You Have Difficulty Seeing? Yes [email or web address] Information n ot available 04/11/2025 What Is Your Level Of Caffeine Consumption? Heavy [email or web address] Information not available 04/11/2025 How Much Tobacco Do You Chew? None [email or web address] Information not available 04/11/2025 In The 14 Days Before Symptom Onset, Have You Had Close Contact With A Laboratory-confirm ed COVID-19 While That Case Was Ill? No [email or web address] Information n ot available 04/11/2025 In The 14 Days Before Symptom Onset, Have You Had Close Contact With A Person Who Is Under Investigation For COVID-19 While That Person Was Ill? No [email or web address] Information not available 04/11/2025 Have You Been To An Area Known To Be High Risk For COVID-19? No [email or web address] Information not available 04/11/2025 Are You Deaf Or Do You Have Serious Difficulty Hearing? No [email or web address] Information not available 04/11/2025 What Type Of Diet Are You Following? REGULAR [email or web address] Information n ot available 04/11/2025 What Is The Highest Grade Or Level Of School You Have Completed Or The Highest Degree You Have Received? [id number] [email or web address] Information not available 04/11/2025 Are There Any Guns Present In Your Home? Yes [email or web address] Information not available 04/11/2025 Do You Use Protection During Sex? No [email or web address] Information not available 04/11/2025 Do You Use Your Seat Belt Or Car Seat Routinely? Yes [email or web address] Information not available 04/11/2025 Are You Sexually Active? No [email or web address] Information not available 04/11/2025 Do You Have Smoke And Carbon Monoxide Detectors In Your Home? Yes [email or web address] Information not available 04/11/2025 How Much Tobacco Do You Smoke? No [email or web address] Information not available 04/11/2025 Do You Use Sunscreen Routinely? Yes [email or web address] Information not available 04/11/2025 How Many Years Have You Smoked Tobacco? 5 Information not available 04/11/2025 Have You Used IV Drugs? No [email or web address] Information not available 04/11/2025 Do You Have Difficulty Walking Or Climbing Stairs? No [email or web address] Information not available 04/11/2025 Sex: Unknown Functional Status Question Answer Note LastModified by Organizat ion Details LastModified Time Do you use any illicit or recreational drugs? No [email or web address] Information not available 04/11/2025 What is your level of alcohol consumption? Occasional [email or web address] Information not available 04/11/2025 Are you currently employed? Yes [email or web address] Information not available 04/11/2025 Are you able to walk independently without assistance or assistive devices? YESWOREST [email or web address] Information not available 04/11/2025 Are you able to care for yourself independently? 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 No [email or web address] Information not available 04/11/2025 What is your exercise level? None Information not available 04/11/2025 Mental Status Question Answer Note LastModified by Organization D etails LastModified Time Do you feel stressed (tense, restless, nervous, or anxious, or unable to sleep at night)? [id number] [email or web address] Information not available 04/11/2025 Family History Relationship Description Onset Age of this Age Resolved Age Notes LastModified by Organization Details LastModified Time Mother Diabetes mellitus [email or web address] Not available 2019 17:45:08 Mother Heart failure [email or web address] Not available 2024 10:18:23 Mother Malignant neoplasm of ovary [email or web address] Not available 2024 10:18:38 Sister Endometriosi s (clinical) [email or web address] Not available 0 04/11/2025 10:03:17 Maternal Aunt Disorder of thyroid gland [email or web address] Not available 2019 17:46:10 Father Hypertensive disorder Not available 2024 10:19:04 Father Kidney disease [email or web address] Not available 2024 10:19:11 Medical History Condition [...] ICD10 Code Diagnosis IMO Codes Diagnosis Note [id number] Milton Peña MD [place] [address] [address] 03/20/2020 17:20:38 03/21/2020 15:03:10 Abnormal uterine bleeding [id number] 9100 N93.9 This patient is a 45-year-ol [...] to move forward with the procedure. Menorrhagia 940670157 N9 2.0 Dysmenorrhea 167787366 N 94.6 [id number] Milton Peañ MD [place] [address] [address] 04/13/2020 15:31:45 04/14/2020 13:38:46 Postoperative care 761524959 Z48.89 This patient is [id number] ld female who isone-week postop from a total laparoscop ic hysterecto my. She is recovering normally. Her incisions are clean dry and intact.Fol low-up as needed [id number] Milton Peña MD [place] [address] [address] 04/11/2025 10:02:02 04/11/2025 12:37:41 Chronic vaginitis 25530373 N76.1 16212 Reviewed the various causes of vaginal discharge and vaginitis symptoms, including both infectious (STD's, BV, yeast, others) and non-infect ious (physiolog ic d/c, irritants/ allergens, DIV, others) causes. Reviewed good vulvar/vag inal hygiene and ways to reduce symptoms.R x sent for nystatin-t riamcinolo ne topical ointment to apply BID to affected area to relieve irritation .Vaginitis panel sent to r/o BV/yeast/t shaiHSV culture sent to r/o viral cause of area of excoriatio n and vaginal vesicles at vaginal introitus. Discussed vaginal estrogen to help restore outermost layer of vaginal cells. Patient to consider. Urinary sy stem finding [id number] R39.9 [id number] VILLA CLEARY NP [place] [address] [address] 07/18/2025 15:47:07 07/18/2025 17:05:48 Atrophic vaginitis 93393060 N95.2 [id number] Discussed physical exam findings. No distinct bumps in vaginal introitus noted, but did note erythema around vaginal introitus consistent with post-menop ausal atrophic vaginitis. Vaginitis panel sent to r/o BV/yeast/t shai (positive for BV 04/11/25 and treated with Flagyl). Recommende d trial of vaginal estradiol cream. Discussed that vaginal estrogen is one of the most effective treatment options for vaginal dryness. These therapies restore the topmost layer of vaginal cells and increase elasticity and connective tissue when used on a regular basis.R/B' s and most common SE's were also reviewed with understand ing verbalized . Also sent rx for clobetasol 0.05% topical ointment to apply to affected vulva and introitus BID PRN for irritation - use sparingly. Patient to discontinu e nystatin-t riamcinolo ne topical ointment at this time. RTO in one month for vulvar and medication check. If no improvemen t in symptoms, discussed possibilit y for vulvar biopsy. Patient to call with any questions or concerns. Health Concerns Section Related Observation LastModified by Organization Detai ls LastModified Time None Recorded Concern Status LastModified by Organization Details LastModified Time None Recorded Advance Directives Directive N: Payers Insurance Date Sequence Insurance Name Policy Number Policy Guevara Covered Member ID Guevara Member ID Guarantor Name 07/15/2025 1 [employer] (PPO) [id number] Elizabeth Ramirez Damir [id number] Elizabeth Ramirez Damir 07/15/2025 1 [employer] [id number] Elizabeth Ramirez Damir [id number] 1 Elizabeth Ramirez Damir 04/03/2025 *SELF PAY* David brannon Ramirez Damir 08/27/2025 1 [employer] (POS II) Elizabeth Ramirez Damir [id number] Elizabeth Ramirez Reich Notes Date Note Type Note Provider [...] procedure. Milton Peña MD [address], [place], [address], [facility] 04/02/2020 08:24:12 04/13/2020 text/html This patient is a 45-year-old female who is one-week postop from a total laparoscopic hysterectomy. She is recovering normally. Her incisions are clean dry and intact. Follow-up as needed Milton Peña MD [address], [place], [address], [facility] 04/13/2020 22:15:29 04/11/2025 text/html 50 y/o [...] in monogamous with relationship with . VILLA CLEARY NP [address], [place], [address], [facility] 04/11/2025 12:37:36 07/18/2025 text/html 50 y/o female presents with c/o intermittent burning and irritation of vaginal opening. Patient reports white discharge.Patient states that the small bumps at vaginal introitus she felt a few months ago at her last exam are still present, but she denies pain.Patient states that she applies nystatin-triamcinol one ointment as needed, which improves the irritation for several weeks at a time. VILLA CLEARY NP [address], [place], [address], [facility] 07/18/2025 17:04:58 OBGyn Episode Ob Episode Information Episode Created Date Number of Fetuses Patient Bloodtype Patient rh Status Prepregnancy Weight lbs Domestic Partner Domestic Partner Phone Father Name Centura Technical Lead Senior Developer Status 03/20/20 20 1 CLOSED Fetus Data [...] Tubal Sterilization Discharge Date Comments 9 40 [place] Discharge Information Feeding Method Contraceptive Method Maternal HG B and HCT Levels Ob Episode Information Episode Created Date Number of Fetuses Patient Bloodtype Patient rh Status Prepregnancy Weight lbs Domestic Partner Domestic Partner Phone Father Name Centura Technical Lead Senior Developer Status 03/20/20 20 1 CLOSED Fetus Data [...] Tubal Sterilization Discharge Date Comments 2 40 [place] Discharge Information Feeding Method Contraceptive Method Maternal HG B and HCT Levels Ob Episode Information Episode Created Date Number of Fetuses Patient Bloodtype Patient rh Status Prepregnancy Weight lbs Domestic Partner Domestic Partner Phone Father Name Centura Technical Lead Senior Developer Status 03/20/20 20 1 CLOSED Fetus Data First Name Last Name Admitted to NICU Weight (g) Sex Living Outcome Pediatric Complications Fetus ID Race Codes Race Delivery Type 3231.84 3 F Full Term 2660 Primary [place] Calculation Initial [place] Date Initial Exam Date [...]
--- OUTSIDE RECORDS SUMMARY | 2025-09-20 11:59 | XMS_ITS | Clinical Summary ---
Author Organization [facility] [employer] Address [address] [place] [address] Care Team Providers Care Dance Choreographer Name Role Phone Drew Rios APRN-SAUSAGE MIXER Primary Care Provider Source Comments [facility] [employer],non-owned Affiliates and Associated Physician Practices is amultiple site organization consisting of ambulatory clinics and hospital sitesin [place], [place], [place] and [place]. This disclosure is being madepursuant to the Care Everywhere program and may not contain all information available regarding this patient. Last updated 18.[facility] [employer] Allergies No known active allergies Medications * [...] by mouth once daily 01/03/20 24 Active pseudoephedrine (Sudafed) 30 MG tablet [...] Pain 180 tablet 1 02/22/20 25 Active methotrexate 2.5 MG tablet Take 8 (eight) tablets by mouth every 7 days (once a week) 96 tablet 02/22/20 25 Active betamethasone dipropionate 0.05 % lotion APPLY A FEW DROPS ONTO AFFECTED AREA(S) TWICE DAILY (MORNING/BEDTIME) RUB IN GENTLY AND COMPLETELY 60 mL 05/08/20 25 Active cyclobenzaprine (Flexeril) 5 MG tablet TAKE 1 TABLET BY MOUTH NIGHTLY NEEDED 30 tablet 3 06/12/20 25 Active Active Problems Problem Noted Date Diagnosed Date Seronegative rheumatoid arthritis 11/21/2021 Psoriatic arthritis 08/21/2021 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 Immunizations Immunization Administration Dates Next Due [employer] primary monoval ent 12+ yr 0.3mL Purple [...] on file Legal Sex Female 5:23 AM HAND ALTERATIONS SEAMSTRESS Gender Identity Female 11/29/2020 9:01 AM HAND ALTERATIONS SEAMSTRESS Sexual Orientation Not on file Last Filed Vital Signs Vital Sign Reading Time Taken Comments Blood Pressure 149/90 02/21/2025 2:10 PM CDT Pulse 73 02/21/2025 2:10 PM CDT Temperature 36.7 C (98.1 F) 08/20/2022 8:46 AM HAND ALTERATIONS SEAMSTRESS Respiratory Rate 24 08/20/2022 8:46 AM HAND ALTERATIONS SEAMSTRESS Oxygen Saturation 97% 02/21/2025 2:10 PM CDT Inhaled Oxygen Concentration - - Weight 86.5 kg (190 lb 9.6 oz) 02/21/2025 2:10 P M CDT Height 147.3 cm (4' 10) 10/18/2024 3:11 PM HAND ALTERATIONS SEAMSTRESS Body Mass Index 39.84 10/18/2024 3:11 PM HAND ALTERATIONS SEAMSTRESS Plan of Treatment Health Maintenance Due Date [...] of 2) 2023 COVID-19 VACCINE (4 - 2024- season) 2025 10/10/2020, 09/18/2020, 08/29/2020 INFLUENZA VACCINE (#1) 2025 [...] Procedure Name Priority Date/Time Associated Diagnosis Comments COMPREHENSIVE METABOLIC PANEL Routine 02/21/2025 2:45 PM CDT Psoriatic arthritis (HCC) HEPATITIS SCREEN ACUTE Routine 4:11 PM HAND ALTERATIONS SEAMSTRESS Psoriatic arthritis from Last 3 Months or Most Recently Relevant to Health Maintenance Results * (ABNORMAL) COMPREHENSIVE METABOLIC PANEL (02/21/2025 2:45 [...] - 02/21/2025 11:08 PM CDT Performed at: [address] [place] [id number] [place] [address] , [place], [place] [id number] Bore Miner Operator: Arnol Joy [facility], Phone: [phone] Bea Ortiz MD LAB - CHEMISTRY ORDERABLES Final Result Performing Organization Address [facility] de Phone Number [facility] ACCOUNT BILL [address] [place] [address] * HEPATITIS SCREEN ACUTE (08/21/2021 4:11 PM HAND ALTERATIONS SEAMSTRESS) Hepatitis A Virus Antibody IgM Negative Negative [...] with a HCV Nucleic Acid Amplification test ([id number]). FASTING Blood BLOOD SPECIMEN / Unknown 08/21/2021 4:11 PM HAND ALTERATIONS SEAMSTRESS 08/21/2021 Narrative Resulting Agency Comment [facility] [address] [facility] [id number] Bea Ortiz MD LAB - CHEMISTRY ORDERABLES Final Result Performing Organization Address [facility] de Phone Number [facility] ACCOUNT BILL [address] [place] [address] from Last 3 Months or Most Recently Relevant to Health Maintenance Insurance SELF PAY NO INSURANCE Member Subscriber Plan / Payer (Ef fective for All Dates) Name:Maria C Quinteros Member ID:Not on file Relation to Subscriber:Not on file Name:MARIA C QUINTEROS Subscriber ID:Not on file Address: [address] [place], [place] [id number] Payer ID:Not on file Group ID:Not on file Type:Self Pay Address: [place], [place] BC[place]/[employer] [place] [place] [place] SELF PAY NO INSURANCE Member Subscriber Plan / Payer (Ef fective for All Dates) Name:Maria C Quinteros Member ID:Not on file Relation to Subscriber:Not on file Name:MARIA C QUINTEROS Subscriber ID:Not on file Address: [address] [place] [phone] Payer ID:Not on file Group ID:Not on file Type:Self Pay Address: [place], [place] [place] [place] [employer] [place] SELF PAY NO INSURANCE Member Subscriber Plan / Payer (Ef fective for All Dates) Name:Maria C Quinteros Member ID:Not on file Relation to Subscriber:Not on file Name:MARIA C QUINTEROS Subscriber ID:Not on file Address: [address] [place] [phone] Payer ID:Not on file Group ID:Not on file Type:Self Pay Address: [place], [place] Care Teams Dance Choreographer Relationship Specialty Start Date End Date Drew Rios, RUBBER TILE FLOOR LAYER-SAUSAGE MIXER [address] [place] [phone] PCP - General Nurse Practitioner Family 11/28/20
--- OUTSIDE RECORDS SUMMARY | 2025-09-20 11:59 | XMS_ITS | Continuity of Care Document ---
Author Organization [facility] [place] Address [address] [place] [address] Assessment No assessment recorded. Plan of Treatment Reminders Order Date Submit Date Provider Last Modified By Organization Details Last Modified Time Details Appointments None recorded. Lab unlisted lab - [facility] swab, ROSALES [address] [facility] (Lab), [address] [place], [address], 13:17:25 Referral None recorded. Procedures None recorded. Surgeries None recorded. Imaging None recorded. Medication Orders estradiol 0.01% (0.1 mg/gram) vaginal cream [address] [facility]acy #[id number], [address], [place], [address], 16:19:53 clobetasol 0.05 % topical ointment [address] [facility]/Pharmacy #[id number], [address] , [place], [address], 16:19:53 Patient TargetsNo targets recorded. Patient InstructionsNo instructions recorded. Reason for Referral None Reported. Results Created Date Observation Date Name Description Value Unit Range Abnormal Flag Note LastModifiedBy Organization Detail LastModifiedTime 07/18/2007/18/2025 [facility], ROSALES essence species, tma Negati ve negati ve Not Available [facility] (Lab) [address], [place], [address], 07/19/2025 13:17:25 07/18/2007/18/2025 [facility]OM[facility] SWAB, ROSALES essence glabrata, tma Negati ve negati ve Not Available [facility] (Lab) [address], [place], [address], 07/19/2025 13:17:25 07/18/20 25 07/18/2025 [facility] SWAB, ROSALES trichomonas vaginalis, tma Negati ve negati ve This assay tests for and diffe renti atealina cobos en Alondra da glabr eulalio, the Alondra da speci es group (C. albic ans, C. tropi calis , C. parap edin is, C. dubli niens is), and Trich omona s vagin walter by Trans cript ion-M ediat ed Ampli ficat ion (TMA) . Not Available [facility] (Lab) [address], [place], [address], 07/19/2025 13:17:25 07/18/2007/18/2025 [facility] SWAB, ROSALES bacterial [...] or negat elvia statu s. Not Available [facility] (Lab) [address], [place], [address], 07/19/2025 13:17:25 Result Notes None recorded. Problems Name Problem SNOMED Code Status Onset Date Resolution Date Notes Provider Name and Address Organization Details Recorded Time Specializ ed medical examinati on Active 2012 Gynecologi yakelin Examinatio n;Recorded Elsewhere: No Locatio n: [facility] rce: EHR Chroni c: N Practice ID: 0001 Billa ble Time: 04:30:00 PM Not Available [facility] 0 17:02:02 Screening for malignant neoplasm of cervix Active 2012 Screening for malignant neoplasms of the cervix;Rec orded Elsewhere: No Locatio n: [facility] rce: EHR Chroni c: N Practice ID: 0001 Billa ble Time: 04:30:00 PM Not Available [facility] 0 17:02:02 Abdominal pain 81558854 Active 2012 Abdominal Pain;Recor ded Elsewhere: No Locatio n: [facility] rce: EHR Chroni c: N Practice ID: 0001 Billa ble Time: 08:15:00 AM Not Available [facility] 0 17:02:01 Menstruat ion finding Active 2012 Excessive or frequent menstruati on;Recorde d Elsewhere: No Locatio n: [facility] rce: EHR Chroni c: N Practice ID: 0001 Billa ble Time: 03:30:00 PM Not Available [facility] 0 17:02:01 test negative 768821400 Active 2012 examinatio n or test, negative result;Rec orded Elsewhere: No Locatio n: [facility] rce: EHR Chroni c: N Practice ID: 0001 Billa ble Time: 03:30:00 PM Not Available [facility] 0 17:02:01 Vaginitis and vulvovagi nitis Active 2013 Vaginitis; Recorded Elsewhere: No Locatio n: [facility] rce: EHR Chroni c: N Practice ID: 0001 Billa ble Time: 03:15:00 PM Not Available [facility] 0 17:02:01 Microscop ic hematuria 429521094 Active 2013 MICROSCOPI C HEMATURIA; Recorded Elsewhere: No Locatio n: [facility] rce: EHR Chroni c: N Practice ID: 0001 Billa ble Time: 03:15:00 PM Not Available [facility] 0 17:02:01 Finding of regularit y of menstrual cycle Active 2018 Irregular menstruati on, unspecifie d;Recorded Elsewhere: No Locatio n: [facility] rce: EHR Chroni c: N Practice ID: 0001 Billa ble Time: 02:30:00 PM Not Available [facility] 0 17:02:01 Hypertrop hy of uterus 976083118 Active 2018 Hypertroph y of uterus;Rec orded Elsewhere: No Locatio n: [facility] rce: EHR Chroni c: N Practice ID: 0001 Billa ble Time: 02:30:00 PM Not Available [facility] 0 17:02:02 Bleeding Active 2018 Abnormal uterine and vaginal bleeding, unspecifie d;Recorded Elsewhere: No Locatio n: [facility] rce: EHR Chroni c: N Practice ID: 0001 Billa ble Time: 04:15:00 PM Not Available [facility] 0 17:02:01 Pelvic and perineal pain 926900586 Active 2019 Pelvic and perineal pain;Recor ded Elsewhere: No Locatio n: [facility] rce: EHR Chroni c: N Practice ID: 0001 Billa ble Time: 09:30:00 AM Not Available [facility] 0 17:02:01 Procedure on genitouri nary system Active 2019 Encounter for surgical aftercare following surgery on the genitourin addie system;Rec orded Elsewhere: No Locatio n: [facility] rce: EHR Chroni c: N Practice ID: 0001 Billa ble Time: 08:30:00 AM Not Available [facility] 0 17:02:01 Postopera tive care Active 2019 Encounter for surgical aftercare following surgery on the genitourin addie system;Rec orded Elsewhere: No Locatio n: [facility] rce: EHR Chroni c: N Practice ID: 0001 Billa ble Time: 08:30:00 AM Not Available [facility] 0 17:02:01 Problem Notes None recorded. Procedures Surgical History Date Name Laterality Status Provider Name and Address Organization Details Recorded Time 04/02/20 20 TOTAL HYSTERECTOMY, LAPAROSCOPIC, WITH BILATERAL SALPINGO-OOPHORE CTOMY (SURG) completed [facility] 11/29/2020 18:01:28 07/22/20 19 Dilation and Curettage completed [facility] 03/20/2020 17:49:55 07/22/20 19 Hysteroscopy completed [facility] 03/20/2020 17:50:17 04/21/19 99 delivery completed [facility] 03/20/2020 17:48:24 04/21/19 94 delivery completed [facility] 03/20/2020 17:48:11 04/21/19 92 delivery completed [facility] 03/20/2020 17:48:32 Imaging Results None [...] Prescrib ed Elsewher e: No Locat ion: [facility] odify By: gricelda cervantes DateTime : 10/22/19 [...] Prescrib ed Elsewher e: No Locat ion: [facility] odify By: amber Torreso unter DateTime : 08/01/20 04:00:00 PM Not Available Not Available Not Available Norlyda 0.35 mg tablet Take 1 tablet every day by oral route. 04/11 completed Not Available Not Available Not Available Vitals Date Recorded Body height Body mass index (BMI) Body weight Systolic And Diastolic Provider Name and Address Organization Details Last Updated DateTime 07/18/2025 144.78 cm 40.5 kg/m2 84657.77 g 134/82 mm[Hg] Martha Quiros [facility] 07/18/2025 16:00:06 Social History Question Answer Notes LastModified by Organizat ion Details LastModified Time Tobacco Smoking Status Former Smoker Zeenat Barrett angie [facility] 03/20/2020 17:44:46 Do You Have An Advance Directive? No Information n ot available 04/11/2025 Are You Blind Or Do You Have Difficulty Seeing? Yes Information n ot available 04/11/2025 What Is Your Level Of Caffeine Consumption? Heavy [email or web address] Information not available 04/11/2025 How Much Tobacco Do You Chew? None [email or web address] Information not available 04/11/2025 In The 14 Days Before Symptom Onset, Have You Had Close Contact With A Laboratory-confirm ed COVID-19 While That Case Was Ill? No [email or web address] Information n ot available 04/11/2025 In The 14 Days Before Symptom Onset, Have You Had Close Contact With A Person Who Is Under Investigation For COVID-19 While That Person Was Ill? No [email or web address] Information not available 04/11/2025 Have You Been To An Area Known To Be High Risk For COVID-19? No [email or web address] Information not available 04/11/2025 Are You Deaf Or Do You Have Serious Difficulty Hearing? No [email or web address] Information not available 04/11/2025 What Type Of Diet Are You Following? REGULAR [email or web address] Information n ot available 04/11/2025 What Is The Highest Grade Or Level Of School You Have Completed Or The Highest Degree You Have Received? [id number] [email or web address] Information not available 04/11/2025 Are There Any Guns Present In Your Home? Yes [email or web address] Information not available 04/11/2025 Do You Use Protection During Sex? No [email or web address] Information not available 04/11/2025 Do You Use Your Seat Belt Or Car Seat Routinely? Yes [email or web address] Information not available 04/11/2025 Are You Sexually Active? No [email or web address] Information not available 04/11/2025 Do You Have Smoke And Carbon Monoxide Detectors In Your Home? Yes [email or web address] Information not available 04/11/2025 How Much Tobacco Do You Smoke? No [email or web address] Information not available 04/11/2025 Do You Use Sunscreen Routinely? Yes [email or web address] Information not available 04/11/2025 How Many Years Have You Smoked Tobacco? 5 Information not available 04/11/2025 Have You Used IV Drugs? No [email or web address] Information not available 04/11/2025 Do You Have Difficulty Walking Or Climbing Stairs? No [email or web address] Information not available 04/11/2025 Sex: Unknown Functional Status Question Answer Note LastModified by Organizat ion Details LastModified Time Do you use any illicit or recreational drugs? No [email or web address] Information not available 04/11/2025 What is your level of alcohol consumption? Occasional [email or web address] Information not available 04/11/2025 Are you currently employed? Yes [email or web address] Information not available 04/11/2025 Are you able to walk independently without assistance or assistive devices? YESWOREST [email or web address] Information not available 04/11/2025 Are you able to care for yourself independently? 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 No [email or web address] Information not available 04/11/2025 What is your exercise level? None Information not available 04/11/2025 Mental Status Question Answer Note LastModified by Organization D etails LastModified Time Do you feel stressed (tense, restless, nervous, or anxious, or unable to sleep at night)? [id number] Information not available 04/11/2025 Family History Relationship Description Onset Age of this Age Resolved Age Notes LastModified by Organization Details LastModified Time Mother Diabetes mellitus [email or web address] Not available 2019 17:45:08 Mother Heart failure [email or web address] Not available 2024 10:18:23 Mother Malignant neoplasm of ovary [email or web address] Not available 2024 10:18:38 Sister Endometriosi s (clinical) [email or web address] Not available 0 04/11/2025 10:03:17 Maternal Aunt Disorder of thyroid gland [email or web address] Not available 2019 17:46:10 Father Hypertensive disorder [email or web address] Not available 2024 10:19:04 Father Kidney disease [email or web address] Not available 2024 10:19:11 Medical History Condition [...] ICD10 Code Diagnosis IMO Codes Diagnosis Note [id number] VILLA CLEARY, ASHWIN [place] [address] [address] 07/18/2025 15:47:07 07/18/2025 17:05:48 Atrophic vaginitis [id number] N95.2 [id number] Discussed physical exam findings. No distinct bumps [...] by Organization Details LastModified Time None Recorded Payers Encounter Date Sequence Insurance Name Policy Number Policy Guevara Covered Member ID Guevara Member ID Guarantor Name 07/18/2025 1 [employer] (POS II) Elizabeth Reich [id number] Elizabeth Reich Notes Date Note Type Note Provider Name and Address Organization Details Recorded Time 07/18/2025 text/html 50 y/o female presents with c/o intermittent burning and irritation of vaginal opening. Patient reports white discharge.Patient states that the small bumps at vaginal introitus she felt a few months ago at her last exam are still present, but she denies pain.Patient states that she applies nystatin-triamcino lone ointment as needed, which improves the irritation for several weeks at a time. VILLA CLEARY, ASHWIN [address], [place], [address], [facility] 07/18/2025 17:04:58 OBGyn Episode No OBEpisode recorded.
== END 2025-09-20 11:56 | disposition home or self-care (01) ==
DX: S89.91XA Unspecified injury of right lower leg, initial encounter (principal); X58.XXXA Exposure to other specified factors, initial encounter; M17.11 Unilateral primary osteoarthritis, right knee
CPT/HCPCS: 73562